=== PATIENT | male | born 1955 | race Caucasian/White ===

== ENCOUNTER 2016-04-09 05:22 | Inpatient (IN) | payer OTHER ==
[~2016-04-09] VITALS: Ht 190.5 cm; Wt 141.4 kg
[~2016-04-09 05:22] MED LIST: CARV25 PO; DABI75CA3 PO; DIGO125T PO; DILT30TA38 PO; DULO60CA44 PO; LOSA50TA37 PO; NITR0.4T SL; OXYC-522 PO; PANT40TA25 PO; SLOWK8 PO; SPIR25TA4 PO; TAMS0.4C32 PO; TOPI100 PO
[2016-04-09] MEDS ORDERED: MORP60TA49 PO (05:28)
[2016-04-09] MEDS ORDERED: DILTIAZEM HCL 5 MG/ML 5 ML VIAL IVP ONE (06:00)
[2016-04-09 06:15] LABS: BASOPHILS # (AUTO) 0.08 K/uL (0.00-0.20); BASOPHILS % (AUTO) 0.9 % (0.0-2.0); EOSINOPHILS # (AUTO) 0.11 K/uL (0.00-0.70); EOSINOPHILS % (AUTO) 1.29 % (1.0-6.0); HEMOGLOBIN 14.1 g/dL (13.5-17.5); LYMPHOCYTES # (AUTO) 1.6 K/uL (1.0-4.8); LYMPHOCYTES % (AUTO) 17.4 % (22.0-44.0); MEAN CORPUSCULAR HEMOGLOBIN 32.7 pg (26.0-34.0); MEAN CORPUSCULAR HGB CONC 33.7 G/dL (31.0-37.0); MEAN CORPUSCULAR VOLUME 97 fL (80-100); MONOCYTES # (AUTO) 0.7 K/uL (0.1-1.0); MONOCYTES % (AUTO) 7.8 % (2.0-9.0); NEUTROPHILS # (AUTO) 6.5 K/uL (1.8-7.7); NEUTROPHILS % (AUTO) 72.6 % (40.0-70.0); PLATELET COUNT (AUTO) 197 K/uL (150-450); RED BLOOD CELL COUNT(AUTO) 4.32 MIL/uL (4.50-5.90); RED CELL DISTRIBUTION WIDTH 13.8 % (11.5-14.5); WHITE BLOOD COUNT (AUTO) 8.9 K/uL (4.5-11.0)
[2016-04-09] MEDS ORDERED: SODIUM CHLORIDE 0.9% 1,000 ML IV ONE (06:15)
[2016-04-09] MEDS ORDERED: ONDANSETRON HCL 4 MG/2 ML VIAL IVP ONE (06:15)
[2016-04-09] MEDS ORDERED: DIGOXIN 250 MCG/ML 2 ML AMP IVP ONE (06:15)
[2016-04-09] MEDS ORDERED: KETOROLAC TROMETHAMINE 30 MG/ML VIAL IVP ONE (06:15)
[2016-04-09 06:25] LABS: ANION GAP 10 mmol/L (8-16); CALCIUM, TOTAL 8.6 mg/dL (8.8-10.5); CARBON DIOXIDE 26 mmol/L (22-29); CHLORIDE 104 mmol/L (98-107); CREATININE 1.03 mg/dL (0.60-1.30); GLOMERULAR FILTR. RATE CALC > 60 mL/min (>60); POTASSIUM 3.8 mmol/L (3.5-5.1); SODIUM SERUM 140 mmol/L (136-145); UREA NITROGEN, BLOOD 25 mg/dL (7-18)
[2016-04-09 06:39] LABS: APPEARANCE,URINE TURBID (CLEAR); GLUCOSE, URINE (UA) 100 mg/dL (NEGATIVE); KETONES,URINE 15 mg/dL (NEGATIVE); LEUKOCYTE ESTERASE ,URINE SMALL (NEGATIVE); OCCULT BLOOD,URINE SMALL (NEGATIVE); PROTEIN,URINE SEE CONFIRM (NEGATIVE)
[2016-04-09 06:40] LABS: ADD UA MICROSCOPIC YES
[2016-04-09 06:41] LABS: B-TYPE NATRIURETIC PEPTIDE 889 pg/mL (0-100)
[2016-04-09 06:41] LABS: SULFOSALICYLIC ACID,URINE 1+ (Negative)
[2016-04-09 06:44] LABS: SQUAMOUS EPITHELIAL CELL,UR Moderate /LPF (None Seen)
[2016-04-09 06:45] LABS: COARSE GRANULAR CASTS,URINE 0-2 /LPF (None Seen)
[2016-04-09 06:49] LABS: ALANINE AMINOTRANSFERASE 29 U/L (12-78); ALBUMIN 3.2 g/dL (3.4-5.0); ASPARTATE AMINOTRANSFERASE 20 U/L (15-37); BILIRUBIN,TOTAL 0.9 mg/dL (0.1-1.0); CREATINE KINASE, TOTAL 124 U/L (39-308); THYROID STIMULATING HORMONE 1.46 uIU/mL (0.36-3.74); TOTAL PROTEIN, SERUM 6.5 g/dL (6.4-8.2)
[2016-04-09] MEDS ORDERED: ONDANSETRON HCL 4 MG/2 ML VIAL IVP PRN ×2 (07:30→12:30)
[2016-04-09] MEDS ORDERED: ACETAMINOPHEN 325 MG TABLET PO PRN ×2 (07:30→12:30)
[2016-04-09 11:37] LABS: GLUCOSE,POINT OF CARE 118 MG/DL (70-110)
[2016-04-09] MEDS ORDERED: MAGNESIUM HYDROXIDE SUSPENSION 30 ML UDCUP PO PRN (12:30)
[2016-04-09] MEDS ORDERED: ZOLPIDEM TARTRATE 5 MG TABLET PO PRN (12:30)
[2016-04-09] MEDS ORDERED: BISACODYL 10 MG RECTAL RECTAL SUPPOSITORY PR PRN (12:30)
[2016-04-09] MEDS ORDERED: IPRATROPIUM BROMIDE 0.5 MG/2.5 ML NEB SOLUTION NEB PRN (12:30)
[2016-04-09] MEDS: HEPARIN SODIUM,PORCINE 5,000 UNITS/ML VIAL SQ SCH ×2 (15:09→23:31)
[2016-04-09] MEDS: DILTIAZEM HCL 30 MG TABLET PO SCH ×2 (16:22→20:33)
[2016-04-09] MEDS: MORPHINE SULFATE 2 MG/ML SYRINGE IVP PRN ×2 (16:24→20:34)
[2016-04-09 17:49] VITALS: BP 151/92
[2016-04-09] MEDS: HYDROCODONE/ACETAMINOPHEN 5-325 MG TABLET PO PRN ×2 (18:04→23:31)
[2016-04-09 19:53] VITALS: BP 139/88
[2016-04-09] MEDS: TAMSULOSIN HCL 0.4 MG CAPSULE PO SCH (20:34)
[2016-04-09] MEDS: DABIGATRAN ETEXILATE MESYLATE 75 MG CAPSULE PO SCH (20:34)
[2016-04-09] MEDS: CARVEDILOL 25 MG TABLET PO SCH (20:34)
[2016-04-09] MEDS: DOCUSATE SODIUM 100 MG CAPSULE PO SCH (20:40)
[2016-04-09 23:32] VITALS: BP 116/77
[2016-04-10] VITALS (7 sets, daily range): BP systolic 103–157; BP diastolic 62–89
[2016-04-10] MEDS: MORPHINE SULFATE 2 MG/ML SYRINGE IVP PRN ×6 (00:47→22:35)
[2016-04-10 06:37] LABS: BASOPHILS % (AUTO) 0.6 % (0.0-2.0); EOSINOPHILS % (AUTO) 4.5 % (1.0-6.0); HEMATOCRIT 40.1 % (41-53); LYMPHOCYTES # (AUTO) 1.8 K/uL (1.0-4.8); LYMPHOCYTES % (AUTO) 28.6 % (22.0-44.0); MEAN CORPUSCULAR HEMOGLOBIN 32.3 pg (26.0-34.0); MEAN CORPUSCULAR HGB CONC 32.3 G/dL (31.0-37.0); MEAN CORPUSCULAR VOLUME 100 fL (80-100); MONOCYTES # (AUTO) 0.5 K/uL (0.1-1.0); MONOCYTES % (AUTO) 7.5 % (2.0-9.0); NEUTROPHILS # (AUTO) 3.7 K/uL (1.8-7.7); NEUTROPHILS % (AUTO) 58.8 % (40.0-70.0); PLATELET COUNT (AUTO) 156 K/uL (150-450); RED BLOOD CELL COUNT(AUTO) 4.01 MIL/uL (4.50-5.90); RED CELL DISTRIBUTION WIDTH 13.4 % (11.5-14.5); WHITE BLOOD COUNT (AUTO) 6.4 K/uL (4.5-11.0)
[2016-04-10 07:03] LABS: ALANINE AMINOTRANSFERASE 27 U/L (12-78); ALBUMIN 2.9 g/dL (3.4-5.0); ANION GAP 8 mmol/L (8-16); ASPARTATE AMINOTRANSFERASE 24 U/L (15-37); BILIRUBIN,TOTAL 0.5 mg/dL (0.1-1.0); CALCIUM, TOTAL 8.2 mg/dL (8.8-10.5); CARBON DIOXIDE 26 mmol/L (22-29); CHLORIDE 102 mmol/L (98-107); CREATININE 1.01 mg/dL (0.60-1.30); GLOMERULAR FILTR. RATE CALC > 60 mL/min (>60); POTASSIUM 3.8 mmol/L (3.5-5.1); SODIUM SERUM 136 mmol/L (136-145); TOTAL PROTEIN, SERUM 6.1 g/dL (6.4-8.2); UREA NITROGEN, BLOOD 31 mg/dL (7-18)
[2016-04-10] MEDS: DIGOXIN 125 MCG TABLET PO SCH (08:29)
[2016-04-10] MEDS: PANTOPRAZOLE SODIUM 40 MG DR TABLET PO SCH (08:29)
[2016-04-10] MEDS: LOSARTAN POTASSIUM 50 MG TABLET PO SCH (08:29)
[2016-04-10] MEDS: HYDROCODONE/ACETAMINOPHEN 5-325 MG TABLET PO PRN ×3 (08:29→20:31)
[2016-04-10] MEDS: SPIRONOLACTONE 25 MG TABLET PO SCH (08:29)
[2016-04-10] MEDS: CARVEDILOL 25 MG TABLET PO SCH ×2 (08:30→20:28)
[2016-04-10] MEDS: DOCUSATE SODIUM 100 MG CAPSULE PO SCH ×2 (08:30→20:28)
[2016-04-10] MEDS: HEPARIN SODIUM,PORCINE 5,000 UNITS/ML VIAL SQ SCH ×3 (08:30→22:35)
[2016-04-10] MEDS: TOPIRAMATE 100 MG TABLET PO SCH (08:31)
[2016-04-10] MEDS: DULoxetine HCL 60 MG CAPSULE PO SCH (08:31)
[2016-04-10] MEDS: DABIGATRAN ETEXILATE MESYLATE 75 MG CAPSULE PO SCH ×2 (08:31→20:27)
[2016-04-10] MEDS: DILTIAZEM HCL 30 MG TABLET PO SCH ×3 (08:31→22:35)
[2016-04-10] MEDS ORDERED: MORP15T PO (14:37)
[2016-04-10] MEDS: FUROSEMIDE 20 MG/2 ML VIAL IVP SCH (15:11)
[2016-04-10] MEDS: TAMSULOSIN HCL 0.4 MG CAPSULE PO SCH (20:27)
[2016-04-11] MEDS: MORPHINE SULFATE 2 MG/ML SYRINGE IVP PRN ×4 (02:36→16:25)
[2016-04-11 04:43] VITALS: BP 153/87
[2016-04-11 08:11] VITALS: BP 130/106
[2016-04-11] MEDS: LOSARTAN POTASSIUM 50 MG TABLET PO SCH (08:56)
[2016-04-11] MEDS: PANTOPRAZOLE SODIUM 40 MG DR TABLET PO SCH (08:57)
[2016-04-11] MEDS: DIGOXIN 125 MCG TABLET PO SCH (08:57)
[2016-04-11] MEDS: HYDROCODONE/ACETAMINOPHEN 5-325 MG TABLET PO PRN (08:57)
[2016-04-11] MEDS: SPIRONOLACTONE 25 MG TABLET PO SCH (08:57)
[2016-04-11] MEDS: FUROSEMIDE 20 MG/2 ML VIAL IVP SCH (08:57)
[2016-04-11] MEDS: DILTIAZEM HCL 30 MG TABLET PO SCH ×2 (08:58→16:25)
[2016-04-11] MEDS: DABIGATRAN ETEXILATE MESYLATE 75 MG CAPSULE PO SCH (08:58)
[2016-04-11] MEDS: HEPARIN SODIUM,PORCINE 5,000 UNITS/ML VIAL SQ SCH ×2 (08:58→16:26)
[2016-04-11] MEDS: CARVEDILOL 25 MG TABLET PO SCH (08:58)
[2016-04-11] MEDS: DULoxetine HCL 60 MG CAPSULE PO SCH (08:58)
[2016-04-11] MEDS: TOPIRAMATE 100 MG TABLET PO SCH (08:58)
[2016-04-11] MEDS: DOCUSATE SODIUM 100 MG CAPSULE PO SCH (08:59)
[2016-04-11 12:00] VITALS: BP 153/90
[2016-04-11] MEDS ORDERED: FURO20 PO (16:16)
[2016-04-11] MEDS ORDERED: CARV25 PO (16:16)
[2016-04-11 16:17] VITALS: BP 144/87
== END 2016-04-11 18:45 | disposition home or self-care (01) | DRG 201 ==
LOC: EMS 05:24 → 5S 15:23
PROVIDERS: ADMIT Internal Medicine; ATTEND Internal Medicine
DX: I48.91 Unspecified atrial fibrillation (principal); I50.23 Acute on chronic systolic (congestive) heart failure; J44.9 Chronic obstructive pulmonary disease, unspecified; I42.8 Other cardiomyopathies; E78.00 Pure hypercholesterolemia, unspecified; G43.909 Migraine, unspecified, not intractable, without status migrainosus; E78.5 Hyperlipidemia, unspecified; F31.9 Bipolar disorder, unspecified; I13.0 Hypertensive heart and chronic kidney disease with heart failure and stage 1 through stage 4 chronic kidney disease, or unspecified chronic kidney disease; F10.20 Alcohol dependence, uncomplicated; F12.90 Cannabis use, unspecified, uncomplicated; G89.29 Other chronic pain; F90.9 Attention-deficit hyperactivity disorder, unspecified type; I44.7 Left bundle-branch block, unspecified; N18.9 Chronic kidney disease, unspecified; Z79.899 Other long term (current) drug therapy; Z86.711 Personal history of pulmonary embolism; Z79.1 Long term (current) use of non-steroidal anti-inflammatories (NSAID); Z79.891 Long term (current) use of opiate analgesic; Z98.890 Other specified postprocedural states; Z95.0 Presence of cardiac pacemaker; Z91.14 Patient's other noncompliance with medication regimen
CPT/HCPCS: 82962; 83735; 84443; 87086; 93005; 93306; 96361; 96374; 96375; 99291; J1160; J1644; J1885; J1940; J2270; J2405; J3490; J7030

== ENCOUNTER 2016-05-09 17:39 | Emergency (ER) | payer OTHER ==
[~2016-05-09] VITALS: Ht 190.5 cm; Wt 131.8 kg
[~2016-05-09 17:39] MED LIST changes: +FURO20 PO; +MORP15T PO
[2016-05-09 19:04] VITALS: BP 143/95
[2016-05-09] MEDS ORDERED: ONDANSETRON HCL 4 MG/2 ML VIAL IM ONE (20:15)
[2016-05-09] MEDS ORDERED: HYDROmorphone 2 MG/ML SYRINGE IM ONE (20:15)
== END 2016-05-09 20:57 | disposition home or self-care (01) ==
LOC: EMS 17:44
DX: M16.11 Unilateral primary osteoarthritis, right hip (principal); G89.29 Other chronic pain; I11.0 Hypertensive heart disease with heart failure; I50.9 Heart failure, unspecified; J44.9 Chronic obstructive pulmonary disease, unspecified; I48.91 Unspecified atrial fibrillation; E78.00 Pure hypercholesterolemia, unspecified; F12.90 Cannabis use, unspecified, uncomplicated
CPT/HCPCS: 96372; 99284; J1170; J2405

== ENCOUNTER 2016-05-17 14:56 | Emergency (ER) | payer OTHER ==
[~2016-05-17] VITALS: Ht 190.5 cm; Wt 131.5 kg
[2016-05-17] MEDS ORDERED: ALBUTEROL SULFATE 2.5 MG/0.5 ML NEB SOLUTION NEB ONE ×2 (20:45→22:00)
[2016-05-17] MEDS ORDERED: IPRATROPIUM BROMIDE 0.5 MG/2.5 ML NEB SOLUTION NEB ONE ×2 (20:45→22:00)
[2016-05-17 21:01] LABS: BASOPHILS % (AUTO) 0.7 % (0.0-2.0); EOSINOPHILS % (AUTO) 2.7 % (1.0-6.0); HEMATOCRIT 40.8 % (41-53); HEMOGLOBIN 13.4 g/dL (13.5-17.5); LYMPHOCYTES # (AUTO) 1.9 K/uL (1.0-4.8); LYMPHOCYTES % (AUTO) 26.3 % (22.0-44.0); MEAN CORPUSCULAR HGB CONC 32.9 G/dL (31.0-37.0); MEAN CORPUSCULAR VOLUME 97 fL (80-100); MONOCYTES # (AUTO) 0.7 K/uL (0.1-1.0); MONOCYTES % (AUTO) 10.5 % (2.0-9.0); NEUTROPHILS # (AUTO) 4.2 K/uL (1.8-7.7); NEUTROPHILS % (AUTO) 59.8 % (40.0-70.0); PLATELET COUNT (AUTO) 217 K/uL (150-450); RED BLOOD CELL COUNT(AUTO) 4.18 MIL/uL (4.50-5.90); RED CELL DISTRIBUTION WIDTH 13.8 % (11.5-14.5); WHITE BLOOD COUNT (AUTO) 7.1 K/uL (4.5-11.0)
[2016-05-17 21:11] LABS: ANION GAP 5 mmol/L (8-16); CARBON DIOXIDE 30 mmol/L (22-29); CHLORIDE 102 mmol/L (98-107); CREATININE 1.05 mg/dL (0.60-1.30); GLOMERULAR FILTR. RATE CALC > 60 mL/min (>60); POTASSIUM 4.7 mmol/L (3.5-5.1); SODIUM SERUM 137 mmol/L (136-145); UREA NITROGEN, BLOOD 20 mg/dL (7-18)
[2016-05-17 21:17] LABS: ALANINE AMINOTRANSFERASE 25 U/L (12-78); ALBUMIN 3.3 g/dL (3.4-5.0); ASPARTATE AMINOTRANSFERASE 15 U/L (15-37); BILIRUBIN,TOTAL 0.6 mg/dL (0.1-1.0); CREATINE KINASE, TOTAL 45 U/L (39-308); TOTAL PROTEIN, SERUM 7.1 g/dL (6.4-8.2)
[2016-05-17 21:28] LABS: B-TYPE NATRIURETIC PEPTIDE 489 pg/mL (0-100)
[2016-05-17] MEDS ORDERED: PredniSONE 20 MG TABLET PO ONE (22:00)
[2016-05-17] MEDS ORDERED: FUROSEMIDE 20 MG TABLET PO ONE (22:00)
[2016-05-17] MEDS ORDERED: PredniSONE 20 MG TABLET ONE (22:03)
[2016-05-17] MEDS ORDERED: FUROSEMIDE 20 MG TABLET ONE (22:04)
[2016-05-17 22:39] VITALS: BP 133/78
== END 2016-05-17 23:04 | disposition home or self-care (01) ==
LOC: EMS 14:58
DX: J44.0 Chronic obstructive pulmonary disease with (acute) lower respiratory infection (principal); I11.0 Hypertensive heart disease with heart failure; I50.9 Heart failure, unspecified; E78.00 Pure hypercholesterolemia, unspecified; G43.909 Migraine, unspecified, not intractable, without status migrainosus; F12.90 Cannabis use, unspecified, uncomplicated; Z95.0 Presence of cardiac pacemaker
CPT/HCPCS: 36415; 71020; 80053; 82550; 83880; 84484; 85025; 93005; 94640; 99285; J7512; J7613

== ENCOUNTER 2016-05-20 10:40 | Inpatient (IN) | payer OTHER ==
[~2016-05-20] VITALS: Ht 188 cm; Wt 139.2 kg
[2016-05-20] MEDS ORDERED: IPRATROPIUM BROMIDE 0.5 MG/2.5 ML NEB SOLUTION NEB ONE ×2 (11:00→13:00)
[2016-05-20] MEDS ORDERED: PredniSONE 20 MG TABLET PO ONE (11:00)
[2016-05-20] MEDS ORDERED: ALBUTEROL SULFATE 5 MG/ML 20 ML NEB SOLN [BULK] NEB ONE ×2 (11:00→13:00)
[2016-05-20 15:28] LABS: BASOPHILS # (AUTO) 0.01 K/uL (0.00-0.20); BASOPHILS % (AUTO) 0.2 % (0.0-2.0); EOSINOPHILS # (AUTO) 0.03 K/uL (0.00-0.70); EOSINOPHILS % (AUTO) 0.46 % (1.0-6.0); HEMATOCRIT 43.4 % (41-53); HEMOGLOBIN 14.4 g/dL (13.5-17.5); LYMPHOCYTES # (AUTO) 0.7 K/uL (1.0-4.8); LYMPHOCYTES % (AUTO) 9.2 % (22.0-44.0); MEAN CORPUSCULAR HGB CONC 33.1 G/dL (31.0-37.0); MEAN CORPUSCULAR VOLUME 97 fL (80-100); MONOCYTES # (AUTO) 0.1 K/uL (0.1-1.0); MONOCYTES % (AUTO) 1.5 % (2.0-9.0); NEUTROPHILS # (AUTO) 6.4 K/uL (1.8-7.7); PLATELET COUNT (AUTO) 283 K/uL (150-450); RED BLOOD CELL COUNT(AUTO) 4.48 MIL/uL (4.50-5.90); RED CELL DISTRIBUTION WIDTH 13.5 % (11.5-14.5); WHITE BLOOD COUNT (AUTO) 7.3 K/uL (4.5-11.0)
[2016-05-20 15:29] LABS: NEUTROPHILS % (AUTO) 88.7 % (40.0-70.0)
[2016-05-20 15:37] LABS: ANION GAP 7 mmol/L (8-16); CALCIUM, TOTAL 9.3 mg/dL (8.8-10.5); CARBON DIOXIDE 32 mmol/L (22-29); CHLORIDE 103 mmol/L (98-107); CREATININE 0.93 mg/dL (0.60-1.30); GLOMERULAR FILTR. RATE CALC > 60 mL/min (>60); POTASSIUM 5.1 mmol/L (3.5-5.1); SODIUM SERUM 142 mmol/L (136-145); UREA NITROGEN, BLOOD 19 mg/dL (7-18)
[2016-05-20 15:43] LABS: ALANINE AMINOTRANSFERASE 21 U/L (12-78); ALBUMIN 3.5 g/dL (3.4-5.0); ASPARTATE AMINOTRANSFERASE 15 U/L (15-37); BILIRUBIN,TOTAL 0.7 mg/dL (0.1-1.0); TOTAL PROTEIN, SERUM 7.3 g/dL (6.4-8.2)
[2016-05-20] MEDS ORDERED: ONDANSETRON HCL 4 MG/2 ML VIAL IVP PRN (16:15)
[2016-05-20] MEDS ORDERED: ACETAMINOPHEN 325 MG TABLET PO PRN (16:15)
[2016-05-20 16:46] VITALS: BP 108/98
[2016-05-20] MEDS ORDERED: NITROGLYCERIN 0.4 MG SUBLINGUAL TABLET #25 SL PRN (17:45)
[2016-05-20] MEDS: MORPHINE SULFATE 15 MG IR TABLET PO PRN (18:25)
[2016-05-20] MEDS: DIGOXIN 125 MCG TABLET PO SCH (18:25)
[2016-05-20] MEDS: ALBUTEROL SULFATE 2.5 MG/0.5 ML NEB SOLUTION NEB SCH ×2 (18:59→23:09)
[2016-05-20] MEDS: IPRATROPIUM BROMIDE 0.5 MG/2.5 ML NEB SOLUTION NEB SCH ×2 (18:59→23:09)
[2016-05-20 20:05] VITALS: BP 129/84
[2016-05-20] MEDS: CARVEDILOL 25 MG TABLET PO SCH (20:55)
[2016-05-20] MEDS: TAMSULOSIN HCL 0.4 MG CAPSULE PO SCH (20:55)
[2016-05-20] MEDS: DABIGATRAN ETEXILATE MESYLATE 75 MG CAPSULE PO SCH (20:55)
[2016-05-20] MEDS: DILTIAZEM HCL 30 MG TABLET PO SCH (20:55)
[2016-05-20] MEDS: OxyCODONE HCL/ACETAMINOPHEN 10-325 MG TABLET PO PRN (22:30)
[2016-05-20] MEDS: MethylPREDNISolone SOD SUCC 125 MG/2 ML VIAL IVP SCH (23:18)
[2016-05-20 23:58] VITALS: BP 125/86
[2016-05-21] MEDS ORDERED: MethylPREDNISolone SOD SUCC 125 MG/2 ML VIAL IVP ONE
[2016-05-21] MEDS: MORPHINE SULFATE 15 MG IR TABLET PO PRN ×3 (02:38→20:16)
[2016-05-21] MEDS: IPRATROPIUM BROMIDE 0.5 MG/2.5 ML NEB SOLUTION NEB SCH (02:54)
[2016-05-21] MEDS: ALBUTEROL SULFATE 2.5 MG/0.5 ML NEB SOLUTION NEB SCH (02:54)
[2016-05-21 05:09] VITALS: BP 154/89
[2016-05-21 07:22] VITALS: BP 146/86
[2016-05-21] MEDS: MethylPREDNISolone SOD SUCC 125 MG/2 ML VIAL IVP SCH ×3 (07:37→23:41)
[2016-05-21] MEDS: OxyCODONE HCL/ACETAMINOPHEN 10-325 MG TABLET PO PRN ×2 (07:37→23:41)
[2016-05-21] MEDS: DIGOXIN 125 MCG TABLET PO SCH (08:57)
[2016-05-21] MEDS: DABIGATRAN ETEXILATE MESYLATE 75 MG CAPSULE PO SCH ×2 (08:57→20:17)
[2016-05-21] MEDS: POTASSIUM CHLORIDE 8 MEQ ER TABLET PO SCH (08:57)
[2016-05-21] MEDS: PANTOPRAZOLE SODIUM 40 MG DR TABLET PO SCH (08:57)
[2016-05-21] MEDS: LOSARTAN POTASSIUM 50 MG TABLET PO SCH (08:57)
[2016-05-21] MEDS: CARVEDILOL 25 MG TABLET PO SCH ×2 (08:57→20:16)
[2016-05-21] MEDS: SPIRONOLACTONE 25 MG TABLET PO SCH (08:57)
[2016-05-21] MEDS: FUROSEMIDE 20 MG TABLET PO SCH (08:57)
[2016-05-21] MEDS: DILTIAZEM HCL 30 MG TABLET PO SCH ×3 (08:57→20:16)
[2016-05-21] MEDS: DULoxetine HCL 60 MG CAPSULE PO SCH (08:58)
[2016-05-21] MEDS: TOPIRAMATE 100 MG TABLET PO SCH (08:58)
[2016-05-21 09:20] LABS: EOSINOPHILS # (AUTO) 0.01 K/uL (0.00-0.70); EOSINOPHILS % (AUTO) 0.06 % (1.0-6.0); HEMATOCRIT 43.6 % (41-53); HEMOGLOBIN 14.6 g/dL (13.5-17.5); LYMPHOCYTES # (AUTO) 0.8 K/uL (1.0-4.8); LYMPHOCYTES % (AUTO) 6.3 % (22.0-44.0); MEAN CORPUSCULAR HEMOGLOBIN 32.3 pg (26.0-34.0); MEAN CORPUSCULAR HGB CONC 33.5 G/dL (31.0-37.0); MEAN CORPUSCULAR VOLUME 96 fL (80-100); MONOCYTES # (AUTO) 0.1 K/uL (0.1-1.0); MONOCYTES % (AUTO) 0.4 % (2.0-9.0); NEUTROPHILS # (AUTO) 11.6 K/uL (1.8-7.7); PLATELET COUNT (AUTO) 304 K/uL (150-450); RED BLOOD CELL COUNT(AUTO) 4.53 MIL/uL (4.50-5.90); RED CELL DISTRIBUTION WIDTH 14.2 % (11.5-14.5)
[2016-05-21 09:21] LABS: NEUTROPHILS % (AUTO) 93.2 % (40.0-70.0)
[2016-05-21 09:22] LABS: WHITE BLOOD COUNT (AUTO) 15.3 K/uL (4.5-11.0)
[2016-05-21 09:33] LABS: ALANINE AMINOTRANSFERASE 21 U/L (12-78); ALBUMIN 3.2 g/dL (3.4-5.0); ANION GAP 10 mmol/L (8-16); ASPARTATE AMINOTRANSFERASE 25 U/L (15-37); BILIRUBIN,TOTAL 0.6 mg/dL (0.1-1.0); CALCIUM, TOTAL 8.7 mg/dL (8.8-10.5); CARBON DIOXIDE 27 mmol/L (22-29); CHLORIDE 102 mmol/L (98-107); CREATININE 1.07 mg/dL (0.60-1.30); GLOMERULAR FILTR. RATE CALC > 60 mL/min (>60); POTASSIUM 4.9 mmol/L (3.5-5.1); SODIUM SERUM 139 mmol/L (136-145); UREA NITROGEN, BLOOD 19 mg/dL (7-18)
[2016-05-21 10:51] VITALS: BP 108/67
[2016-05-21 15:19] VITALS: BP 130/72
[2016-05-21] MEDS ORDERED: IOVERSOL 350 MG/ML 150 ML VIAL ONE (15:50)
[2016-05-21] MEDS ORDERED: SODIUM CHLORIDE 0.9% 100 ML ONE (15:50)
[2016-05-21] MEDS: LEVOFLOXACIN 500 MG TABLET PO SCH (15:54)
[2016-05-21] MEDS ORDERED: 0.9% SODIUM CHLORIDE 5 ML NEB SOLUTION NEB ONE ×2 (16:33→21:54)
[2016-05-21] MEDS: ALBUTEROL SULFATE 2.5 MG/0.5 ML NEB SOLUTION NEB PRN (16:40)
[2016-05-21 19:17] VITALS: BP 131/90
[2016-05-21] MEDS: TAMSULOSIN HCL 0.4 MG CAPSULE PO SCH (20:16)
[2016-05-21] MEDS: GuaiFENesin/CODEINE [SUGAR FREE] 200-20MG/10 ML SYRUP UDCUP PO PRN (20:22)
[2016-05-21 23:41] VITALS: BP 132/73
[2016-05-22] MEDS: GuaiFENesin/CODEINE [SUGAR FREE] 200-20MG/10 ML SYRUP UDCUP PO PRN ×4 (02:32→23:56)
[2016-05-22 05:05] VITALS: BP 136/72
[2016-05-22 07:55] VITALS: BP 131/76
[2016-05-22] MEDS: LOSARTAN POTASSIUM 50 MG TABLET PO SCH (08:19)
[2016-05-22] MEDS: FUROSEMIDE 20 MG TABLET PO SCH (08:19)
[2016-05-22] MEDS: MethylPREDNISolone SOD SUCC 125 MG/2 ML VIAL IVP SCH ×3 (08:20→23:56)
[2016-05-22] MEDS: MORPHINE SULFATE 15 MG IR TABLET PO PRN ×3 (08:20→20:50)
[2016-05-22] MEDS: DABIGATRAN ETEXILATE MESYLATE 75 MG CAPSULE PO SCH ×2 (08:20→20:49)
[2016-05-22] MEDS: DILTIAZEM HCL 30 MG TABLET PO SCH ×3 (08:20→20:49)
[2016-05-22] MEDS: PANTOPRAZOLE SODIUM 40 MG DR TABLET PO SCH (08:20)
[2016-05-22] MEDS: DIGOXIN 125 MCG TABLET PO SCH (08:20)
[2016-05-22] MEDS: LEVOFLOXACIN 500 MG TABLET PO SCH (08:20)
[2016-05-22] MEDS: SPIRONOLACTONE 25 MG TABLET PO SCH (08:20)
[2016-05-22] MEDS: CARVEDILOL 25 MG TABLET PO SCH ×2 (08:21→20:49)
[2016-05-22] MEDS: POTASSIUM CHLORIDE 8 MEQ ER TABLET PO SCH (08:21)
[2016-05-22] MEDS: TOPIRAMATE 100 MG TABLET PO SCH (08:21)
[2016-05-22] MEDS: DULoxetine HCL 60 MG CAPSULE PO SCH (08:21)
[2016-05-22] MEDS ORDERED: 0.9% SODIUM CHLORIDE 5 ML NEB SOLUTION NEB ONE ×2 (08:24→15:12)
[2016-05-22] MEDS: ALBUTEROL SULFATE 2.5 MG/0.5 ML NEB SOLUTION NEB PRN ×2 (08:25→15:14)
[2016-05-22 12:01] VITALS: BP 115/72
[2016-05-22 15:43] VITALS: BP 150/90
[2016-05-22 19:36] VITALS: BP 137/84
[2016-05-22] MEDS: TAMSULOSIN HCL 0.4 MG CAPSULE PO SCH (20:50)
[2016-05-22 23:29] VITALS: BP 137/90
[2016-05-22] MEDS: OxyCODONE HCL/ACETAMINOPHEN 10-325 MG TABLET PO PRN (23:56)
[2016-05-23 04:34] VITALS: BP 132/81
[2016-05-23] MEDS: MORPHINE SULFATE 15 MG IR TABLET PO PRN ×4 (05:05→22:48)
[2016-05-23] MEDS: GuaiFENesin/CODEINE [SUGAR FREE] 200-20MG/10 ML SYRUP UDCUP PO PRN ×3 (06:11→21:50)
[2016-05-23 07:04] VITALS: BP 135/94
[2016-05-23] MEDS: MethylPREDNISolone SOD SUCC 125 MG/2 ML VIAL IVP SCH ×2 (08:24→16:22)
[2016-05-23] MEDS: DIGOXIN 125 MCG TABLET PO SCH (08:24)
[2016-05-23] MEDS: DULoxetine HCL 60 MG CAPSULE PO SCH (08:25)
[2016-05-23] MEDS: SPIRONOLACTONE 25 MG TABLET PO SCH (08:25)
[2016-05-23] MEDS: LOSARTAN POTASSIUM 50 MG TABLET PO SCH (08:25)
[2016-05-23] MEDS: CARVEDILOL 25 MG TABLET PO SCH ×2 (08:25→20:39)
[2016-05-23] MEDS: LEVOFLOXACIN 500 MG TABLET PO SCH (08:25)
[2016-05-23] MEDS: DILTIAZEM HCL 30 MG TABLET PO SCH ×3 (08:25→21:50)
[2016-05-23] MEDS: DABIGATRAN ETEXILATE MESYLATE 75 MG CAPSULE PO SCH ×2 (08:25→20:39)
[2016-05-23] MEDS: TOPIRAMATE 100 MG TABLET PO SCH (08:26)
[2016-05-23] MEDS: POTASSIUM CHLORIDE 8 MEQ ER TABLET PO SCH (08:26)
[2016-05-23] MEDS: PANTOPRAZOLE SODIUM 40 MG DR TABLET PO SCH (08:34)
[2016-05-23] MEDS: OxyCODONE HCL/ACETAMINOPHEN 10-325 MG TABLET PO PRN ×2 (08:34→19:50)
[2016-05-23] MEDS: FUROSEMIDE 20 MG TABLET PO SCH (08:34)
[2016-05-23 11:34] VITALS: BP 140/91
[2016-05-23 12:26] VITALS: BP 137/75
[2016-05-23 15:46] VITALS: BP 144/83
[2016-05-23] MEDS: ALBUTEROL SULFATE 2.5 MG/0.5 ML NEB SOLUTION NEB PRN (17:48)
[2016-05-23] MEDS: ALBUTEROL SULFATE 2.5 MG/0.5 ML NEB SOLUTION NEB SCH ×2 (19:00→23:24)
[2016-05-23] MEDS: IPRATROPIUM BROMIDE 0.5 MG/2.5 ML NEB SOLUTION NEB SCH ×2 (19:00→23:24)
[2016-05-23] MEDS: HYDROCODONE/CHLORPHEN POLIS 10-8 MG/5 ML ORAL.SYG PO SCH (20:39)
[2016-05-23] MEDS: FLUTICASONE PROPIONATE 50 MCG/SPRAY 16 GM NASAL SPRAY NASAL SCH (20:39)
[2016-05-23] MEDS: BENZONATATE 100 MG CAPSULE PO SCH (20:39)
[2016-05-23] MEDS: TAMSULOSIN HCL 0.4 MG CAPSULE PO SCH (20:40)
[2016-05-23 21:15] VITALS: BP 149/95
[2016-05-23] MEDS: BUDESONIDE 0.5 MG/2 ML NEB SOLUTION NEB SCH (23:24)
[2016-05-24] VITALS (8 sets, daily range): BP systolic 135–153; BP diastolic 72–102
[2016-05-24] MEDS: OxyCODONE HCL/ACETAMINOPHEN 10-325 MG TABLET PO PRN ×4 (01:49→23:01)
[2016-05-24] MEDS: ALBUTEROL SULFATE 2.5 MG/0.5 ML NEB SOLUTION NEB SCH ×6 (03:07→23:39)
[2016-05-24] MEDS: IPRATROPIUM BROMIDE 0.5 MG/2.5 ML NEB SOLUTION NEB SCH ×6 (03:07→23:41)
[2016-05-24] MEDS: MethylPREDNISolone SOD SUCC 125 MG/2 ML VIAL IVP SCH ×3 (03:31→15:51)
[2016-05-24 07:06] LABS: EOSINOPHILS % (AUTO) 0 % (1.0-6.0); HEMATOCRIT 42.2 % (41-53); HEMOGLOBIN 13.5 g/dL (13.5-17.5); LYMPHOCYTES # (AUTO) 0.6 K/uL (1.0-4.8); LYMPHOCYTES % (AUTO) 6.3 % (22.0-44.0); MEAN CORPUSCULAR HEMOGLOBIN 31.5 pg (26.0-34.0); MEAN CORPUSCULAR HGB CONC 32.1 G/dL (31.0-37.0); MEAN CORPUSCULAR VOLUME 98 fL (80-100); MONOCYTES # (AUTO) 0.2 K/uL (0.1-1.0); MONOCYTES % (AUTO) 2.4 % (2.0-9.0); NEUTROPHILS # (AUTO) 8.5 K/uL (1.8-7.7); PLATELET COUNT (AUTO) 264 K/uL (150-450); RED CELL DISTRIBUTION WIDTH 14.2 % (11.5-14.5); WHITE BLOOD COUNT (AUTO) 9.3 K/uL (4.5-11.0)
[2016-05-24] MEDS: BUDESONIDE 0.5 MG/2 ML NEB SOLUTION NEB SCH ×2 (07:13→19:15)
[2016-05-24 07:32] LABS: NEUTROPHILS % (AUTO) 91.3 % (40.0-70.0)
[2016-05-24 07:48] LABS: MAGNESIUM 2.1 mg/dL (1.80-2.40); PHOSPHORUS 4.3 mg/dL (2.5-4.9); THYROID STIMULATING HORMONE 0.13 uIU/mL (0.36-3.74)
[2016-05-24] MEDS: FLUTICASONE PROPIONATE 50 MCG/SPRAY 16 GM NASAL SPRAY NASAL SCH ×2 (09:15→19:42)
[2016-05-24] MEDS: PANTOPRAZOLE SODIUM 40 MG DR TABLET PO SCH (09:17)
[2016-05-24] MEDS: SPIRONOLACTONE 25 MG TABLET PO SCH (09:17)
[2016-05-24] MEDS: DABIGATRAN ETEXILATE MESYLATE 75 MG CAPSULE PO SCH ×2 (09:17→19:43)
[2016-05-24] MEDS: POTASSIUM CHLORIDE 8 MEQ ER TABLET PO SCH (09:17)
[2016-05-24] MEDS: LOSARTAN POTASSIUM 50 MG TABLET PO SCH (09:17)
[2016-05-24] MEDS: DULoxetine HCL 60 MG CAPSULE PO SCH (09:17)
[2016-05-24] MEDS: TOPIRAMATE 100 MG TABLET PO SCH (09:18)
[2016-05-24] MEDS: DILTIAZEM HCL 30 MG TABLET PO SCH ×3 (09:19→21:03)
[2016-05-24] MEDS: FUROSEMIDE 20 MG TABLET PO SCH (09:19)
[2016-05-24] MEDS: CARVEDILOL 25 MG TABLET PO SCH ×2 (09:19→21:05)
[2016-05-24] MEDS: LEVOFLOXACIN 500 MG TABLET PO SCH (09:20)
[2016-05-24] MEDS: BENZONATATE 100 MG CAPSULE PO SCH ×3 (09:20→19:43)
[2016-05-24 11:21] LABS: ABG A-A DIFF O2 20.6 mmHg (10-20.0); ABG BASE EXCESS -2.2 mmol/L (-2.0-3.0); ABG HCO3 22.8 mmol/L (22.0-26.0); ABG OXYHEMOGLOBIN 94.9 % (94.0-100.0); ABG PCO2 41 mmHg (35-45); ABG PH 7.372 (7.35-7.450); TEMPERATURE, FAHRENHEIT, BG 98.6 FAHREN (96.0-98.6)
[2016-05-24 11:24] LABS: ALLEN TEST, BLOOD GAS Positive
[2016-05-24] MEDS: DIGOXIN 125 MCG TABLET PO SCH (11:41)
[2016-05-24] MEDS: HYDROCODONE/CHLORPHEN POLIS 10-8 MG/5 ML ORAL.SYG PO SCH ×2 (11:42→21:05)
[2016-05-24] MEDS: MORPHINE SULFATE 15 MG IR TABLET PO PRN ×2 (12:46→19:43)
[2016-05-24] MEDS: TAMSULOSIN HCL 0.4 MG CAPSULE PO SCH (19:42)
[2016-05-25] MEDS: MethylPREDNISolone SOD SUCC 40 MG/ML VIAL IVP SCH ×2 (00:23→07:41)
[2016-05-25] MEDS: GuaiFENesin/CODEINE [SUGAR FREE] 200-20MG/10 ML SYRUP UDCUP PO PRN ×2 (00:26→09:48)
[2016-05-25] MEDS: IPRATROPIUM BROMIDE 0.5 MG/2.5 ML NEB SOLUTION NEB SCH ×2 (03:20→07:51)
[2016-05-25] MEDS: ALBUTEROL SULFATE 2.5 MG/0.5 ML NEB SOLUTION NEB SCH ×2 (03:20→07:52)
[2016-05-25 03:30] VITALS: BP 146/90
[2016-05-25] MEDS: MORPHINE SULFATE 15 MG IR TABLET PO PRN (03:33)
[2016-05-25] MEDS: FLUTICASONE PROPIONATE 50 MCG/SPRAY 16 GM NASAL SPRAY NASAL SCH (07:44)
[2016-05-25] MEDS: HYDROCODONE/CHLORPHEN POLIS 10-8 MG/5 ML ORAL.SYG PO SCH (07:45)
[2016-05-25] MEDS: PANTOPRAZOLE SODIUM 40 MG DR TABLET PO SCH (07:46)
[2016-05-25] MEDS: LOSARTAN POTASSIUM 50 MG TABLET PO SCH (07:46)
[2016-05-25] MEDS: LEVOFLOXACIN 500 MG TABLET PO SCH (07:46)
[2016-05-25] MEDS: BENZONATATE 100 MG CAPSULE PO SCH (07:46)
[2016-05-25] MEDS: FUROSEMIDE 20 MG TABLET PO SCH (07:46)
[2016-05-25] MEDS: DIGOXIN 125 MCG TABLET PO SCH (07:47)
[2016-05-25] MEDS: DILTIAZEM HCL 30 MG TABLET PO SCH (07:48)
[2016-05-25] MEDS: CARVEDILOL 25 MG TABLET PO SCH (07:48)
[2016-05-25] MEDS: SPIRONOLACTONE 25 MG TABLET PO SCH (07:49)
[2016-05-25] MEDS: TOPIRAMATE 100 MG TABLET PO SCH (07:49)
[2016-05-25] MEDS: POTASSIUM CHLORIDE 8 MEQ ER TABLET PO SCH (07:49)
[2016-05-25] MEDS: DABIGATRAN ETEXILATE MESYLATE 75 MG CAPSULE PO SCH (07:49)
[2016-05-25] MEDS: BUDESONIDE 0.5 MG/2 ML NEB SOLUTION NEB SCH (07:52)
[2016-05-25 08:10] VITALS: BP 148/91
[2016-05-25] MEDS ORDERED: PredniSONE 20 MG TABLET PO SCH (09:00)
[2016-05-25] MEDS ORDERED: PRED20 PO (10:12)
[2016-05-25] MEDS ORDERED: LEVO500 PO (10:12)
[2016-05-25] MEDS ORDERED: IPRA3AMP4 NEB (10:13)
[2016-05-25] MEDS: OxyCODONE HCL/ACETAMINOPHEN 10-325 MG TABLET PO PRN (10:27)
[2016-05-25] MEDS: DULoxetine HCL 60 MG CAPSULE PO SCH (10:37)
== END 2016-05-25 10:45 | disposition home or self-care (01) | DRG 133 ==
LOC: EMS 10:42 → 5S 16:05 → 4E 05-23 11:54
PROVIDERS: ADMIT Family Medicine; ATTEND Family Medicine
DX: J96.00 Acute respiratory failure, unspecified whether with hypoxia or hypercapnia (principal); J18.9 Pneumonia, unspecified organism; I11.0 Hypertensive heart disease with heart failure; J44.0 Chronic obstructive pulmonary disease with (acute) lower respiratory infection; I50.9 Heart failure, unspecified; I48.91 Unspecified atrial fibrillation; G43.909 Migraine, unspecified, not intractable, without status migrainosus; J44.1 Chronic obstructive pulmonary disease with (acute) exacerbation; E66.01 Morbid (severe) obesity due to excess calories; F31.9 Bipolar disorder, unspecified; Z68.32 Body mass index [BMI] 32.0-32.9, adult; E78.00 Pure hypercholesterolemia, unspecified; E78.5 Hyperlipidemia, unspecified; F12.90 Cannabis use, unspecified, uncomplicated; I25.10 Atherosclerotic heart disease of native coronary artery without angina pectoris; F90.9 Attention-deficit hyperactivity disorder, unspecified type; G47.33 Obstructive sleep apnea (adult) (pediatric); G89.4 Chronic pain syndrome; M19.90 Unspecified osteoarthritis, unspecified site; Z86.711 Personal history of pulmonary embolism; Z91.19 Patient's noncompliance with other medical treatment and regimen; Z95.810 Presence of automatic (implantable) cardiac defibrillator; Z98.890 Other specified postprocedural states
CPT/HCPCS: 71260; 82805; 83735; 84100; 84443; 87070; 87081; 87205; 93005; 94640; 94644; 94645; 99285; J2920; J2930; J7050

== ENCOUNTER 2016-10-12 11:51 | Emergency (ER) | payer OTHER ==
[~2016-10-12] VITALS: Ht 190.5 cm; Wt 136.4 kg
[~2016-10-12 11:51] MED LIST changes: +IPRA3AMP4 NEB; +LEVO500 PO; +PRED20 PO
[2016-10-12] MEDS ORDERED: OXYC20 PO (12:21)
[2016-10-12] MEDS ORDERED: DABI150 PO (12:21)
[2016-10-12] MEDS ORDERED: DULO60CA44 PO (12:21)
[2016-10-12] MEDS ORDERED: DSS100 PO (12:21)
[2016-10-12] MEDS ORDERED: CEFX1I IV (12:21)
[2016-10-12] MEDS ORDERED: HYDR12.516 PO (12:21)
[2016-10-12 13:15] LABS: BASOPHILS # (AUTO) 0.04 K/uL (0.00-0.20); BASOPHILS % (AUTO) 0.8 % (0.0-2.0); EOSINOPHILS # (AUTO) 0.17 K/uL (0.00-0.70); EOSINOPHILS % (AUTO) 2.89 % (1.0-6.0); HEMOGLOBIN 11.2 g/dL (13.5-17.5); LYMPHOCYTES # (AUTO) 1.7 K/uL (1.0-4.8); LYMPHOCYTES % (AUTO) 28.8 % (22.0-44.0); MEAN CORPUSCULAR HEMOGLOBIN 30.6 pg (26.0-34.0); MEAN CORPUSCULAR VOLUME 93 fL (80-100); MONOCYTES # (AUTO) 0.5 K/uL (0.1-1.0); NEUTROPHILS # (AUTO) 3.5 K/uL (1.8-7.7); NEUTROPHILS % (AUTO) 59.5 % (40.0-70.0); PLATELET COUNT (AUTO) 479 K/uL (150-450); RED BLOOD CELL COUNT(AUTO) 3.67 MIL/uL (4.50-5.90); RED CELL DISTRIBUTION WIDTH 14.1 % (11.5-14.5); WHITE BLOOD COUNT (AUTO) 5.8 K/uL (4.5-11.0)
[2016-10-12 13:34] LABS: ALBUMIN 3.1 g/dL (3.4-5.0); BILIRUBIN,TOTAL 0.5 mg/dL (0.1-1.0); CALCIUM, TOTAL 8.7 mg/dL (8.8-10.5); CREATININE 1.29 mg/dL (0.60-1.30); POTASSIUM 4.5 mmol/L (3.5-5.1); TOTAL PROTEIN, SERUM 7.2 g/dL (6.4-8.2)
[2016-10-12 16:27] VITALS: BP 130/94
== END 2016-10-12 18:06 | disposition home or self-care (01) ==
LOC: EMS 11:53
DX: R05 Cough (principal); I11.0 Hypertensive heart disease with heart failure; I50.9 Heart failure, unspecified; I48.91 Unspecified atrial fibrillation; J44.9 Chronic obstructive pulmonary disease, unspecified; E78.00 Pure hypercholesterolemia, unspecified; G43.909 Migraine, unspecified, not intractable, without status migrainosus; F12.90 Cannabis use, unspecified, uncomplicated; Z79.2 Long term (current) use of antibiotics; Z95.0 Presence of cardiac pacemaker
CPT/HCPCS: 71020; 99285

== ENCOUNTER 2016-12-10 08:10 | Emergency (ER) | payer OTHER ==
[~2016-12-10] VITALS: Ht 190.5 cm; Wt 131.8 kg
[2016-12-10] MEDS ORDERED: CARV3 PO (08:20)
[2016-12-10] MEDS ORDERED: DABI75CA3 PO (08:20)
[2016-12-10] MEDS ORDERED: DILT60 PO (08:20)
[2016-12-10 08:45] LABS: BASOPHILS % (AUTO) 0.9 % (0.0-2.0); EOSINOPHILS % (AUTO) 2.6 % (1.0-6.0); HEMATOCRIT 36.2 % (41-53); HEMOGLOBIN 11.9 g/dL (13.5-17.5); LYMPHOCYTES # (AUTO) 2.4 K/uL (1.0-4.8); LYMPHOCYTES % (AUTO) 37.6 % (22.0-44.0); MEAN CORPUSCULAR HEMOGLOBIN 27.8 pg (26.0-34.0); MEAN CORPUSCULAR HGB CONC 32.8 G/dL (31.0-37.0); MEAN CORPUSCULAR VOLUME 85 fL (80-100); MONOCYTES # (AUTO) 0.5 K/uL (0.1-1.0); MONOCYTES % (AUTO) 7.7 % (2.0-9.0); NEUTROPHILS # (AUTO) 3.2 K/uL (1.8-7.7); NEUTROPHILS % (AUTO) 51.2 % (40.0-70.0); PLATELET COUNT (AUTO) 234 K/uL (150-450); RED BLOOD CELL COUNT(AUTO) 4.27 MIL/uL (4.50-5.90); RED CELL DISTRIBUTION WIDTH 17.4 % (11.5-14.5); WHITE BLOOD COUNT (AUTO) 6.3 K/uL (4.5-11.0)
[2016-12-10 08:56] LABS: INR 1.1 (0.9-1.1); PROTHROMBIN TIME 11.6 SEC (9.4-11.6)
[2016-12-10 09:00] LABS: RBC MORPHOLOGY COMMENT ABNORMAL RBC MORPH
[2016-12-10] MEDS ORDERED: DILTIAZEM HCL 5 MG/ML 5 ML VIAL IVP ONE (09:00)
[2016-12-10 09:02] LABS: ANION GAP 12 mmol/L (8-16); CALCIUM, TOTAL 8.4 mg/dL (8.8-10.5); CARBON DIOXIDE 25 mmol/L (22-29); CHLORIDE 107 mmol/L (98-107); CREATININE 0.99 mg/dL (0.60-1.30); GLOMERULAR FILTR. RATE CALC > 60 mL/min (>60); SODIUM SERUM 144 mmol/L (136-145); UREA NITROGEN, BLOOD 21 mg/dL (7-18)
[2016-12-10 09:05] LABS: B-TYPE NATRIURETIC PEPTIDE 186 pg/mL (0-100)
[2016-12-10 09:27] LABS: ALANINE AMINOTRANSFERASE 33 U/L (12-78); ALBUMIN 3.7 g/dL (3.4-5.0); ASPARTATE AMINOTRANSFERASE 40 U/L (15-37); BILIRUBIN,TOTAL 0.4 mg/dL (0.1-1.0); CREATINE KINASE MB 2.1 ng/mL (0-5); CREATINE KINASE, TOTAL 137 U/L (39-308); TOTAL PROTEIN, SERUM 7.1 g/dL (6.4-8.2)
[2016-12-10 09:31] LABS: APPEARANCE,URINE CLEAR (CLEAR); GLUCOSE, URINE (UA) NEGATIVE (NEGATIVE); KETONES,URINE NEGATIVE (NEGATIVE); LEUKOCYTE ESTERASE ,URINE NEGATIVE (NEGATIVE); OCCULT BLOOD,URINE TRACE (NEGATIVE); PH,URINE 5.5 (5.0-8.0); PROTEIN,URINE SEE CONFIRM (NEGATIVE)
[2016-12-10 09:32] LABS: ADD UA MICROSCOPIC YES
[2016-12-10 09:41] LABS: SULFOSALICYLIC ACID,URINE 2+ (Negative)
[2016-12-10 09:45] LABS: RBC,URINE 0-2 /HPF (0-2); SQUAMOUS EPITHELIAL CELL,UR Rare /LPF (None Seen); WBC,URINE 0-2 /HPF (0-5)
[2016-12-10] MEDS ORDERED: DIGOXIN 250 MCG/ML 2 ML AMP IVP ONE (10:30)
[2016-12-10] MEDS ORDERED: CARVEDILOL 3.125 MG TABLET PO ONE (10:30)
[2016-12-10 11:38] VITALS: BP 162/100
== END 2016-12-10 12:24 | disposition home or self-care (01) ==
LOC: EMS 08:14
DX: I48.91 Unspecified atrial fibrillation (principal); I11.0 Hypertensive heart disease with heart failure; I50.9 Heart failure, unspecified; E78.00 Pure hypercholesterolemia, unspecified; J44.9 Chronic obstructive pulmonary disease, unspecified; F12.90 Cannabis use, unspecified, uncomplicated
CPT/HCPCS: 36415; 71010; 80053; 81001; 82550; 82553; 83880; 84484; 85025; 85610; 85730; 93005; 96374; 99285; J1160; J3490

== ENCOUNTER 2016-12-23 10:40 | Inpatient (IN) | payer MEDICAID, OTHER ==
[~2016-12-23] VITALS: Ht 190.5 cm; Wt 133.0 kg
[~2016-12-23 10:40] MED LIST changes: -CARV25 PO; +CARV3 PO; -DIGO125T PO; -DILT30TA38 PO; +DILT60 PO; -DULO60CA44 PO; -FURO20 PO; -IPRA3AMP4 NEB; -LEVO500 PO; -LOSA50TA37 PO; -MORP15T PO; -NITR0.4T SL; -OXYC-522 PO; -PANT40TA25 PO; -PRED20 PO; -SLOWK8 PO; -SPIR25TA4 PO; -TAMS0.4C32 PO; -TOPI100 PO
[2016-12-23 11:54] LABS: BASOPHILS % (AUTO) 0.3 % (0.0-2.0); EOSINOPHILS % (AUTO) 1.1 % (1.0-6.0); HEMATOCRIT 39.7 % (41-53); HEMOGLOBIN 12.9 g/dL (13.5-17.5); LYMPHOCYTES # (AUTO) 1.2 K/uL (1.0-4.8); LYMPHOCYTES % (AUTO) 18.8 % (22.0-44.0); MEAN CORPUSCULAR HEMOGLOBIN 26.8 pg (26.0-34.0); MEAN CORPUSCULAR HGB CONC 32.5 G/dL (31.0-37.0); MEAN CORPUSCULAR VOLUME 82 fL (80-100); MONOCYTES # (AUTO) 0.7 K/uL (0.1-1.0); MONOCYTES % (AUTO) 11.2 % (2.0-9.0); NEUTROPHILS # (AUTO) 4.5 K/uL (1.8-7.7); NEUTROPHILS % (AUTO) 68.6 % (40.0-70.0); PLATELET COUNT (AUTO) 277 K/uL (150-450); RED BLOOD CELL COUNT(AUTO) 4.81 MIL/uL (4.50-5.90); RED CELL DISTRIBUTION WIDTH 18.1 % (11.5-14.5)
[2016-12-23 12:03] LABS: AMPHET/METH SCREEN,URINE NEGATIVE (NEGATIVE); BARBITURATE SCREEN, URINE NEGATIVE (NEGATIVE); BENZODIAZEPINES SCREEN,URINE NEGATIVE (NEGATIVE); CANNABINOID SCREEN,URINE NEGATIVE (NEGATIVE); COCAINE SCREEN,URINE NEGATIVE (NEGATIVE); METHADONE SCREEN, URINE NEGATIVE (NEGATIVE); OPIATE SCREEN,URINE NEGATIVE (NEGATIVE)
[2016-12-23 12:04] LABS: PHENCYCLIDINE SCREEN,URINE NEGATIVE (NEGATIVE)
[2016-12-23 12:07] LABS: ANION GAP 11 mmol/L (8-16); CALCIUM, TOTAL 9.4 mg/dL (8.8-10.5); CARBON DIOXIDE 27 mmol/L (22-29); CHLORIDE 102 mmol/L (98-107); CREATININE 1.18 mg/dL (0.60-1.30); GLOMERULAR FILTR. RATE CALC > 60 mL/min (>60); GLUCOSE,RANDOM 118 mg/dL (70-110); POTASSIUM 4.6 mmol/L (3.5-5.1); SODIUM SERUM 140 mmol/L (136-145); UREA NITROGEN, BLOOD 19 mg/dL (7-18)
[2016-12-23 12:10] LABS: ALANINE AMINOTRANSFERASE 20 U/L (12-78); ALBUMIN 4.2 g/dL (3.4-5.0); ALKALINE PHOSPHATASE 95 U/L (46-116); ASPARTATE AMINOTRANSFERASE 21 U/L (15-37); BILIRUBIN,TOTAL 1.3 mg/dL (0.1-1.0)
[2016-12-23] MEDS: LORazepam 2 MG TABLET PO PRN (14:49)
[2016-12-23] MEDS ORDERED: CARVEDILOL 3.125 MG TABLET PO ONE (15:00)
[2016-12-23] MEDS ORDERED: DILTIAZEM HCL 60 MG TABLET PO ONE (15:00)
[2016-12-23] MEDS ORDERED: LORazepam 1 MG TABLET PO ONE (15:00)
[2016-12-23 15:39] VITALS: BP 145/98
[2016-12-23] MEDS ORDERED: PNEUMOCOCCAL VACCINE POLYVALENT 0.5 ML VIAL [PPSV23] IM ONE (15:45)
[2016-12-23] MEDS ORDERED: INFLUENZA VIRUS VACCINE QVS 2017-18 (3YR+)/PF 60 MCG/0.5 ML SYRINGE IM ONE (15:45)
[2016-12-23] MEDS ORDERED: CYANOCOBALAMIN 1,000 MCG/ML VIAL IM ONE (16:45)
[2016-12-23] MEDS ORDERED: GuaiFENesin/D-METHORPHAN [SUGAR-FREE] 200-20MG/10 ML SYRUP UDCUP PO PRN (16:45)
[2016-12-23] MEDS ORDERED: LOPERAMIDE HCL 2 MG CAPSULE PO PRN (16:45)
[2016-12-23] MEDS ORDERED: HydrOXYzine PAMOATE 50 MG CAPSULE PO PRN (16:45)
[2016-12-23] MEDS ORDERED: LORazepam 2 MG TABLET PO PRN (16:45)
[2016-12-23 17:07] VITALS: BP 148/86
[2016-12-23 18:05] VITALS: BP 125/66
[2016-12-23] MEDS: DULoxetine HCL 60 MG CAPSULE PO SCH (18:51)
[2016-12-23] MEDS: THIAMINE HCL 100 MG TABLET PO SCH (18:51)
[2016-12-23] MEDS: NICOTINE 21 MG/24 HOUR PATCH TD SCH (18:53)
[2016-12-23 19:00] VITALS: BP 141/85
[2016-12-23 20:00] VITALS: BP 137/98
[2016-12-23] MEDS: DILTIAZEM HCL 60 MG TABLET PO SCH (21:32)
[2016-12-23] MEDS: ZOLPIDEM TARTRATE 10 MG TABLET PO PRN (22:44)
[2016-12-24] VITALS (8 sets, daily range): BP systolic 137–154; BP diastolic 88–100
[2016-12-24] MEDS ORDERED: LORazepam 2 MG TABLET PO PRN (07:00)
[2016-12-24] MEDS ORDERED: NITROGLYCERIN 0.4 MG SUBLINGUAL TABLET #25 SL PRN (08:15)
[2016-12-24] MEDS ORDERED: BACITRACIN 28.4 GM OINTMENT TP PRN (08:15)
[2016-12-24] MEDS ORDERED: ACETAMINOPHEN 325 MG TABLET PO PRN (08:15)
[2016-12-24] MEDS ORDERED: LOPERAMIDE HCL 2 MG CAPSULE PO PRN (08:15)
[2016-12-24] MEDS ORDERED: MAGNESIUM HYDROXIDE SUSPENSION 30 ML UDCUP PO PRN (08:15)
[2016-12-24] MEDS ORDERED: BENZOCAINE/MENTHOL LOZENGE [8 LOZENGES/PACKET] MM PRN (08:15)
[2016-12-24] MEDS ORDERED: MAG HYDROX/AL HYDROX/SIMETH ES 30 ML SUSPENSION UDCUP PO PRN (08:15)
[2016-12-24] MEDS ORDERED: ONDANSETRON HCL 4 MG TABLET PO PRN (08:15)
[2016-12-24] MEDS ORDERED: PETROLATUM,WHITE 71 GM JELLY TP PRN (08:15)
[2016-12-24] MEDS ORDERED: ALBUTEROL SULFATE HFA 90 MCG/PUFF 8 GM INHALER IH PRN (08:15)
[2016-12-24 09:04] LABS: CHOL/HDL RATIO 2.3 (4.2-7.3)
[2016-12-24] MEDS: DABIGATRAN ETEXILATE MESYLATE 75 MG CAPSULE PO SCH ×2 (10:17→17:35)
[2016-12-24] MEDS: NICOTINE 21 MG/24 HOUR PATCH TD SCH (10:17)
[2016-12-24] MEDS: THIAMINE HCL 100 MG TABLET PO SCH ×2 (10:17→17:35)
[2016-12-24] MEDS: MULTIVITAMINS WITH MINERALS, THERAPEUTIC TABLET PO SCH (10:17)
[2016-12-24] MEDS: DILTIAZEM HCL 60 MG TABLET PO SCH ×4 (10:17→20:58)
[2016-12-24] MEDS: FOLIC ACID 1 MG TABLET PO SCH (10:17)
[2016-12-24] MEDS: CARVEDILOL 3.125 MG TABLET PO SCH (10:18)
[2016-12-24] MEDS: OMEPRAZOLE 20 MG CAPSULE PO SCH (10:18)
[2016-12-24] MEDS: DULoxetine HCL 60 MG CAPSULE PO SCH ×2 (10:18→17:34)
[2016-12-24] MEDS: LORazepam 2 MG TABLET PO SCH ×4 (10:19→20:58)
[2016-12-24] MEDS: LORazepam 2 MG TABLET PO PRN (11:29)
[2016-12-24 19:25] LABS: FREE T4 (FREE THYROXINE) 1.19 ng/dL (0.76-1.46); THYROID STIMULATING HORMONE 1.89 uIU/mL (0.36-3.74)
[2016-12-25 03:05] VITALS: BP 145/102
[2016-12-25] MEDS: LORazepam 2 MG TABLET PO PRN (03:14)
[2016-12-25 03:16] VITALS: BP 130/79
[2016-12-25] MEDS: IBUPROFEN 600 MG TABLET PO PRN (03:33)
[2016-12-25 08:00] VITALS: BP 150/91
[2016-12-25] MEDS: LORazepam 2 MG TABLET PO SCH ×4 (09:00→21:08)
[2016-12-25] MEDS: DILTIAZEM HCL 60 MG TABLET PO SCH ×4 (09:34→21:07)
[2016-12-25] MEDS: CARVEDILOL 3.125 MG TABLET PO SCH (09:34)
[2016-12-25] MEDS: MULTIVITAMINS WITH MINERALS, THERAPEUTIC TABLET PO SCH (09:34)
[2016-12-25] MEDS: OMEPRAZOLE 20 MG CAPSULE PO SCH (09:34)
[2016-12-25] MEDS: DABIGATRAN ETEXILATE MESYLATE 75 MG CAPSULE PO SCH ×2 (09:35→16:32)
[2016-12-25] MEDS: THIAMINE HCL 100 MG TABLET PO SCH ×2 (09:35→16:32)
[2016-12-25] MEDS: DULoxetine HCL 60 MG CAPSULE PO SCH ×2 (09:36→16:32)
[2016-12-25] MEDS: FOLIC ACID 1 MG TABLET PO SCH (09:37)
[2016-12-25] MEDS: NICOTINE 21 MG/24 HOUR PATCH TD SCH (09:49)
[2016-12-25 12:45] VITALS: BP 144/78
[2016-12-25 16:41] VITALS: BP 136/87
[2016-12-26 02:57] VITALS: BP 125/89
[2016-12-26] MEDS ORDERED: LORazepam 1 MG TABLET PO PRN (07:00)
[2016-12-26 08:00] VITALS: BP 172/112
[2016-12-26] MEDS: LORazepam 1 MG TABLET PO SCH ×4 (08:40→20:24)
[2016-12-26] MEDS: DILTIAZEM HCL 60 MG TABLET PO SCH ×4 (08:40→20:24)
[2016-12-26] MEDS: OMEPRAZOLE 20 MG CAPSULE PO SCH (08:40)
[2016-12-26] MEDS: THIAMINE HCL 100 MG TABLET PO SCH ×2 (08:40→16:59)
[2016-12-26] MEDS: DULoxetine HCL 60 MG CAPSULE PO SCH ×2 (08:40→16:59)
[2016-12-26] MEDS: CARVEDILOL 3.125 MG TABLET PO SCH (08:40)
[2016-12-26] MEDS: FOLIC ACID 1 MG TABLET PO SCH (08:40)
[2016-12-26] MEDS: DABIGATRAN ETEXILATE MESYLATE 75 MG CAPSULE PO SCH ×2 (08:41→16:59)
[2016-12-26] MEDS: MULTIVITAMINS WITH MINERALS, THERAPEUTIC TABLET PO SCH (08:41)
[2016-12-26] MEDS: NICOTINE 21 MG/24 HOUR PATCH TD SCH (08:49)
[2016-12-26 10:00] VITALS: BP 139/91
[2016-12-26 16:30] VITALS: BP 146/103
[2016-12-26 19:30] VITALS: BP 146/103
[2016-12-27 04:05] VITALS: BP 148/82
[2016-12-27] MEDS ORDERED: LORazepam 1 MG TABLET PO PRN (07:00)
[2016-12-27 09:00] VITALS: BP 177/104
[2016-12-27] MEDS: OMEPRAZOLE 20 MG CAPSULE PO SCH (09:46)
[2016-12-27] MEDS: FOLIC ACID 1 MG TABLET PO SCH (09:46)
[2016-12-27] MEDS: CARVEDILOL 3.125 MG TABLET PO SCH (09:46)
[2016-12-27] MEDS: DULoxetine HCL 60 MG CAPSULE PO SCH ×2 (09:46→16:16)
[2016-12-27] MEDS: MULTIVITAMINS WITH MINERALS, THERAPEUTIC TABLET PO SCH (09:46)
[2016-12-27] MEDS: THIAMINE HCL 100 MG TABLET PO SCH ×2 (09:46→16:16)
[2016-12-27] MEDS: NICOTINE 21 MG/24 HOUR PATCH TD SCH (09:48)
[2016-12-27] MEDS: DABIGATRAN ETEXILATE MESYLATE 75 MG CAPSULE PO SCH ×2 (09:49→16:16)
[2016-12-27] MEDS: DILTIAZEM HCL 60 MG TABLET PO SCH ×4 (09:50→20:29)
[2016-12-27 12:00] VITALS: BP 160/90
[2016-12-27 16:00] VITALS: BP 145/83
[2016-12-27] MEDS: HALOPERIDOL 5 MG TABLET PO PRN (16:21)
[2016-12-27 17:00] VITALS: BP_SYST 142; BP_SYST 154; BP_DIAS 103; BP_DIAS 87
[2016-12-27 17:56] VITALS: BP 154/103
[2016-12-28 05:30] VITALS: BP 157/107
[2016-12-28] MEDS: IBUPROFEN 600 MG TABLET PO PRN (05:53)
[2016-12-28] MEDS: CloNIDine HCL 0.1 MG TABLET PO PRN (05:53)
[2016-12-28] MEDS ORDERED: ARIPiprazole 5 MG TABLET PO SCH (09:00)
[2016-12-28 09:40] VITALS: BP 158/109
[2016-12-28] MEDS: FOLIC ACID 1 MG TABLET PO SCH (09:43)
[2016-12-28] MEDS: THIAMINE HCL 100 MG TABLET PO SCH ×2 (09:43→17:48)
[2016-12-28] MEDS: CARVEDILOL 3.125 MG TABLET PO SCH (09:43)
[2016-12-28] MEDS: DULoxetine HCL 60 MG CAPSULE PO SCH ×2 (09:43→17:48)
[2016-12-28] MEDS: DILTIAZEM HCL 60 MG TABLET PO SCH ×4 (09:43→21:51)
[2016-12-28] MEDS: OMEPRAZOLE 20 MG CAPSULE PO SCH (09:43)
[2016-12-28] MEDS: DABIGATRAN ETEXILATE MESYLATE 75 MG CAPSULE PO SCH ×2 (09:43→17:48)
[2016-12-28] MEDS: MULTIVITAMINS WITH MINERALS, THERAPEUTIC TABLET PO SCH (09:43)
[2016-12-28] MEDS: NICOTINE 21 MG/24 HOUR PATCH TD SCH (09:49)
[2016-12-28 11:23] VITALS: BP 150/108
[2016-12-28] MEDS ORDERED: CARVEDILOL 3.125 MG TABLET PO ONE (13:00)
[2016-12-28 13:20] VITALS: BP 132/62
[2016-12-28] MEDS: LORazepam 2 MG TABLET PO PRN (14:17)
[2016-12-28] MEDS: HALOPERIDOL 5 MG TABLET PO PRN (14:17)
[2016-12-28 17:25] VITALS: BP 127/69
[2016-12-28 17:31] VITALS: BP_SYST 127; BP_SYST 154; BP_DIAS 103; BP_DIAS 69
[2016-12-28] MEDS: ZOLPIDEM TARTRATE 10 MG TABLET PO PRN (22:01)
[2016-12-29 06:17] VITALS: BP 143/95
[2016-12-29 08:30] VITALS: BP 140/80
[2016-12-29] MEDS: DILTIAZEM HCL 60 MG TABLET PO SCH ×4 (08:58→21:09)
[2016-12-29] MEDS: DABIGATRAN ETEXILATE MESYLATE 75 MG CAPSULE PO SCH ×2 (08:59→17:01)
[2016-12-29] MEDS: DULoxetine HCL 60 MG CAPSULE PO SCH ×2 (08:59→17:01)
[2016-12-29] MEDS: OMEPRAZOLE 20 MG CAPSULE PO SCH (08:59)
[2016-12-29] MEDS: MULTIVITAMINS WITH MINERALS, THERAPEUTIC TABLET PO SCH (08:59)
[2016-12-29] MEDS: CARVEDILOL 3.125 MG TABLET PO SCH (08:59)
[2016-12-29] MEDS: FOLIC ACID 1 MG TABLET PO SCH (08:59)
[2016-12-29] MEDS: THIAMINE HCL 100 MG TABLET PO SCH ×2 (08:59→17:01)
[2016-12-29] MEDS: NICOTINE 21 MG/24 HOUR PATCH TD SCH (09:03)
[2016-12-29] MEDS: ARIPiprazole 10 MG TABLET PO SCH (09:04)
[2016-12-29] MEDS: HALOPERIDOL 5 MG TABLET PO PRN ×2 (13:31→19:35)
[2016-12-29] MEDS: LORazepam 2 MG TABLET PO PRN ×2 (13:31→19:35)
[2016-12-29 19:35] VITALS: BP 124/73
[2016-12-29] MEDS: ZOLPIDEM TARTRATE 10 MG TABLET PO PRN (21:09)
[2016-12-30 08:59] VITALS: BP 161/103
[2016-12-30] MEDS: DABIGATRAN ETEXILATE MESYLATE 75 MG CAPSULE PO SCH ×2 (09:35→16:07)
[2016-12-30] MEDS: DILTIAZEM HCL 60 MG TABLET PO SCH ×3 (09:35→16:07)
[2016-12-30] MEDS: FOLIC ACID 1 MG TABLET PO SCH (09:35)
[2016-12-30] MEDS: THIAMINE HCL 100 MG TABLET PO SCH ×2 (09:35→16:07)
[2016-12-30] MEDS: ARIPiprazole 10 MG TABLET PO SCH (09:35)
[2016-12-30] MEDS: OMEPRAZOLE 20 MG CAPSULE PO SCH (09:36)
[2016-12-30] MEDS: DULoxetine HCL 60 MG CAPSULE PO SCH ×2 (09:36→16:07)
[2016-12-30] MEDS: MULTIVITAMINS WITH MINERALS, THERAPEUTIC TABLET PO SCH (09:36)
[2016-12-30] MEDS: CARVEDILOL 3.125 MG TABLET PO SCH (09:36)
[2016-12-30] MEDS: NICOTINE 21 MG/24 HOUR PATCH TD SCH (09:38)
[2016-12-30 10:00] VITALS: BP 149/90
[2016-12-30 12:00] VITALS: BP 149/115
[2016-12-30] MEDS: CloNIDine HCL 0.1 MG TABLET PO PRN (12:04)
[2016-12-30 13:00] VITALS: BP 136/88
[2016-12-30] MEDS ORDERED: DULO60CA44 PO (13:48)
[2016-12-30] MEDS ORDERED: ARIP10TA8 PO (13:48)
== END 2016-12-30 16:05 | disposition home or self-care (01) | DRG 751 ==
LOC: EMS 10:42 → AHU 14:22 → 3EI 18:00
PROVIDERS: ADMIT Psychiatry & Neurology Psychiatry; ATTEND Psychiatry & Neurology Psychiatry
PROC: 3E0234Z Introduction of Serum, Toxoid and Vaccine into Muscle, Percutaneous Approach (ICD-10-PCS; principal; 2016-12-24)
PROC: 3E0234Z Introduction of Serum, Toxoid and Vaccine into Muscle, Percutaneous Approach (ICD-10-PCS; 2016-12-24)
DX: F33.2 Major depressive disorder, recurrent severe without psychotic features (principal); R45.851 Suicidal ideations; I11.0 Hypertensive heart disease with heart failure; I50.20 Unspecified systolic (congestive) heart failure; I48.2 Chronic atrial fibrillation; J44.9 Chronic obstructive pulmonary disease, unspecified; G43.909 Migraine, unspecified, not intractable, without status migrainosus; E78.5 Hyperlipidemia, unspecified; F17.200 Nicotine dependence, unspecified, uncomplicated; G89.29 Other chronic pain; F90.9 Attention-deficit hyperactivity disorder, unspecified type; F12.90 Cannabis use, unspecified, uncomplicated; K21.9 Gastro-esophageal reflux disease without esophagitis; G47.33 Obstructive sleep apnea (adult) (pediatric); M19.90 Unspecified osteoarthritis, unspecified site; I25.10 Atherosclerotic heart disease of native coronary artery without angina pectoris; G47.00 Insomnia, unspecified; F10.20 Alcohol dependence, uncomplicated; E66.9 Obesity, unspecified; Z68.36 Body mass index [BMI] 36.0-36.9, adult; Z23 Encounter for immunization; Z59.0 Homelessness; Z79.899 Other long term (current) drug therapy; Z95.810 Presence of automatic (implantable) cardiac defibrillator; Z86.711 Personal history of pulmonary embolism
CPT/HCPCS: 84439; 84443; 90471; 99285; G0480; J3420

== ENCOUNTER 2017-04-17 11:59 | Inpatient (IN) | payer MEDICAID, OTHER ==
[~2017-04-17] VITALS: Ht 190.5 cm; Wt 132.6 kg
[~2017-04-17 11:59] MED LIST changes: +ARIP10TA8 PO; +DULO60CA44 PO
[2017-04-17] MEDS ORDERED: LOSA25TA21 PO (12:29)
[2017-04-17] MEDS ORDERED: AMLO-511 PO (12:29)
[2017-04-17] MEDS ORDERED: DIGO-44 PO (12:29)
[2017-04-17] MEDS ORDERED: ONDANSETRON HCL 4 MG/2 ML VIAL IVP ONE (12:45)
[2017-04-17] MEDS ORDERED: MORPHINE SULFATE 4 MG/ML SYRINGE IVP ONE (12:45)
[2017-04-17] MEDS ORDERED: SODIUM CHLORIDE 0.9% 1,000 ML IV ONE (12:45)
[2017-04-17] MEDS ORDERED: SODIUM CHLORIDE 0.9% 500 ML IV ONE ×2 (12:45→16:58)
[2017-04-17 12:52] LABS: BASOPHILS % (AUTO) 0.4 % (0.0-2.0); EOSINOPHILS % (AUTO) 0 % (1.0-6.0); HEMATOCRIT 43.1 % (41-53); HEMOGLOBIN 14.9 g/dL (13.5-17.5); LYMPHOCYTES # (AUTO) 1.1 K/uL (1.0-4.8); MEAN CORPUSCULAR HEMOGLOBIN 29.7 pg (26.0-34.0); MEAN CORPUSCULAR HGB CONC 34.5 G/dL (31.0-37.0); MEAN CORPUSCULAR VOLUME 86 fL (80-100); MONOCYTES # (AUTO) 0.7 K/uL (0.1-1.0); MONOCYTES % (AUTO) 6.1 % (2.0-9.0); NEUTROPHILS # (AUTO) 10.3 K/uL (1.8-7.7); NEUTROPHILS % (AUTO) 84.5 % (40.0-70.0); PLATELET COUNT (AUTO) 120 K/uL (150-450); RED CELL DISTRIBUTION WIDTH 18.7 % (11.5-14.5)
[2017-04-17 13:01] LABS: CALCIUM, TOTAL 8.9 mg/dL (8.8-10.5); CREATININE 1.7 mg/dL (0.60-1.30); POTASSIUM 3.6 mmol/L (3.5-5.1)
[2017-04-17 13:03] LABS: INR 1.1 (0.9-1.1); PROTHROMBIN TIME 11.3 SEC (9.4-11.6)
[2017-04-17 13:06] LABS: ALBUMIN 3.1 g/dL (3.4-5.0); BILIRUBIN,TOTAL 0.9 mg/dL (0.1-1.0); TOTAL PROTEIN, SERUM 7.2 g/dL (6.4-8.2)
[2017-04-17 13:25] LABS: C-REACTIVE PROTEIN QUANT 32.79 mg/dL (0.00-0.30)
[2017-04-17] MEDS ORDERED: CEFEPIME HCL 2 GM in DEXTROSE 5%-WATER 20 ML IV ONE (13:30)
[2017-04-17] MEDS ORDERED: HYDROmorphone 2 MG/ML SYRINGE IVP ONE (13:45)
[2017-04-17 13:54] LABS: ERYTHROCYTE SEDIMENTATION RATE 49 MM/HR (0-15)
[2017-04-17] MEDS ORDERED: DEXTROSE 5% IV ONE (14:00)
[2017-04-17] MEDS ORDERED: VANCOMYCIN HCL IV ONE (14:00)
[2017-04-17] MEDS ORDERED: 0.9% SODIUM CHLORIDE 10 ML SYRINGE IVP PRN (14:00)
[2017-04-17] MEDS ORDERED: ONDANSETRON HCL 4 MG/2 ML VIAL IVP PRN ×2 (14:00→19:45)
[2017-04-17] MEDS ORDERED: WATER IV ONE (14:00)
[2017-04-17] MEDS ORDERED: ACETAMINOPHEN 325 MG TABLET PO PRN (14:00)
[2017-04-17 16:06] VITALS: BP 102/60
[2017-04-17] MEDS ORDERED: *CLINICAL-CEFEPIME DOSING CLINICAL ONE ×2 (17:30→20:00)
[2017-04-17] MEDS ORDERED: HYDROCODONE/ACETAMINOPHEN 5-325 MG TABLET PO PRN (17:30)
[2017-04-17] MEDS: HYDROmorphone 2 MG/ML SYRINGE IVP PRN (18:02)
[2017-04-17 19:30] VITALS: BP 90/60
[2017-04-17] MEDS ORDERED: BISACODYL 10 MG RECTAL RECTAL SUPPOSITORY PR PRN (19:45)
[2017-04-17] MEDS: LOSARTAN POTASSIUM 25 MG TABLET PO SCH (19:45)
[2017-04-17] MEDS: MUPIROCIN CALCIUM 2% 22 GM OINTMENT TP SCH (20:56)
[2017-04-17] MEDS: ARIPiprazole 10 MG TABLET PO SCH (20:56)
[2017-04-17] MEDS: VANCOMYCIN HCL 1 GM/D5% WATER 200 ML IV SCH (20:56)
[2017-04-17] MEDS: DULoxetine HCL 60 MG CAPSULE PO SCH (20:56)
[2017-04-17] MEDS: DABIGATRAN ETEXILATE MESYLATE 75 MG CAPSULE PO SCH (20:56)
[2017-04-17] MEDS: DILTIAZEM HCL 60 MG TABLET PO SCH (21:00)
[2017-04-17] MEDS: LACTOBACILLUS ACIDOPHILUS/BULGARICUS GRANULES PACKET PO SCH (21:13)
[2017-04-17 21:26] LABS: BASOPHILS % (AUTO) 0.4 % (0.0-2.0); EOSINOPHILS % (AUTO) 0.1 % (1.0-6.0); HEMATOCRIT 40.3 % (41-53); HEMOGLOBIN 13.6 g/dL (13.5-17.5); LYMPHOCYTES # (AUTO) 1.3 K/uL (1.0-4.8); LYMPHOCYTES % (AUTO) 12.5 % (22.0-44.0); MEAN CORPUSCULAR HEMOGLOBIN 29.1 pg (26.0-34.0); MEAN CORPUSCULAR HGB CONC 33.8 G/dL (31.0-37.0); MEAN CORPUSCULAR VOLUME 86 fL (80-100); MONOCYTES # (AUTO) 0.9 K/uL (0.1-1.0); MONOCYTES % (AUTO) 8.4 % (2.0-9.0); NEUTROPHILS # (AUTO) 8.2 K/uL (1.8-7.7); NEUTROPHILS % (AUTO) 78.6 % (40.0-70.0); PLATELET COUNT (AUTO) 113 K/uL (150-450); RED BLOOD CELL COUNT(AUTO) 4.68 MIL/uL (4.50-5.90); RED CELL DISTRIBUTION WIDTH 18.9 % (11.5-14.5)
[2017-04-17 21:40] LABS: ALBUMIN 2.8 g/dL (3.4-5.0); BILIRUBIN,TOTAL 0.7 mg/dL (0.1-1.0); CALCIUM, TOTAL 8.1 mg/dL (8.8-10.5); CREATININE 2.06 mg/dL (0.60-1.30); POTASSIUM 3.6 mmol/L (3.5-5.1); TOTAL PROTEIN, SERUM 6.7 g/dL (6.4-8.2)
[2017-04-17] MEDS ORDERED: DiphenhydrAMINE HCL 25 MG CAPSULE PO PRN (22:15)
[2017-04-17] MEDS: CEFEPIME HCL 2 GM in DEXTROSE 5%-WATER 20 ML IV SCH (22:15)
[2017-04-17 23:56] VITALS: BP 103/64
[2017-04-18] MEDS: HYDROCODONE/ACETAMINOPHEN 5-325 MG TABLET PO PRN ×3 (00:45→20:50)
[2017-04-18] MEDS: HYDROmorphone 2 MG/ML SYRINGE IVP PRN ×2 (03:33→20:20)
[2017-04-18 04:00] VITALS: BP 130/71
[2017-04-18 06:27] LABS: BASOPHILS % (AUTO) 0.6 % (0.0-2.0); EOSINOPHILS % (AUTO) 0.5 % (1.0-6.0); HEMATOCRIT 37.6 % (41-53); HEMOGLOBIN 12.7 g/dL (13.5-17.5); LYMPHOCYTES # (AUTO) 1.3 K/uL (1.0-4.8); LYMPHOCYTES % (AUTO) 15.6 % (22.0-44.0); MEAN CORPUSCULAR HEMOGLOBIN 29.2 pg (26.0-34.0); MEAN CORPUSCULAR HGB CONC 33.7 G/dL (31.0-37.0); MEAN CORPUSCULAR VOLUME 87 fL (80-100); MONOCYTES # (AUTO) 0.9 K/uL (0.1-1.0); MONOCYTES % (AUTO) 10.7 % (2.0-9.0); NEUTROPHILS # (AUTO) 6.2 K/uL (1.8-7.7); NEUTROPHILS % (AUTO) 72.6 % (40.0-70.0); PLATELET COUNT (AUTO) 106 K/uL (150-450); RED BLOOD CELL COUNT(AUTO) 4.35 MIL/uL (4.50-5.90); RED CELL DISTRIBUTION WIDTH 18.9 % (11.5-14.5)
[2017-04-18 06:45] LABS: ALBUMIN 2.5 g/dL (3.4-5.0); BILIRUBIN,TOTAL 0.7 mg/dL (0.1-1.0); CALCIUM, TOTAL 8.2 mg/dL (8.8-10.5); CREATININE 2.22 mg/dL (0.60-1.30); POTASSIUM 3.6 mmol/L (3.5-5.1); TOTAL PROTEIN, SERUM 6.2 g/dL (6.4-8.2)
[2017-04-18 07:21] LABS: C-REACTIVE PROTEIN QUANT 27.41 mg/dL (0.00-0.30)
[2017-04-18 08:12] VITALS: BP 108/69
[2017-04-18] MEDS: VANCOMYCIN HCL 1 GM/D5% WATER 200 ML IV SCH (08:28)
[2017-04-18] MEDS: LACTOBACILLUS ACIDOPHILUS/BULGARICUS GRANULES PACKET PO SCH ×2 (08:28→20:22)
[2017-04-18] MEDS: CARVEDILOL 6.25 MG TABLET PO SCH (08:29)
[2017-04-18] MEDS: ARIPiprazole 10 MG TABLET PO SCH (08:29)
[2017-04-18] MEDS: LOSARTAN POTASSIUM 25 MG TABLET PO SCH (08:29)
[2017-04-18] MEDS: DABIGATRAN ETEXILATE MESYLATE 75 MG CAPSULE PO SCH ×2 (08:29→20:22)
[2017-04-18] MEDS: DULoxetine HCL 60 MG CAPSULE PO SCH ×2 (08:29→20:21)
[2017-04-18] MEDS: DILTIAZEM HCL 60 MG TABLET PO SCH ×4 (08:29→20:23)
[2017-04-18 08:31] LABS: ERYTHROCYTE SEDIMENTATION RATE 51 MM/HR (0-15)
[2017-04-18] MEDS ORDERED: AmLODIPine BESYLATE 5 MG TABLET PO SCH (09:00)
[2017-04-18] MEDS: MUPIROCIN CALCIUM 2% 22 GM OINTMENT TP SCH ×3 (09:17→20:35)
[2017-04-18] MEDS: CEFEPIME HCL 2 GM in DEXTROSE 5%-WATER 20 ML IV SCH (11:16)
[2017-04-18 11:42] VITALS: BP 93/51
[2017-04-18] MEDS ORDERED: CARV6 PO (12:23)
[2017-04-18 15:53] VITALS: BP 93/52
[2017-04-18 20:20] VITALS: BP 115/60
[2017-04-18] MEDS: VANCOMYCIN HCL 750 MG in DEXTROSE 5%-WATER 150 ML IV SCH (20:49)
[2017-04-18 23:24] VITALS: BP 109/67
[2017-04-19 04:19] VITALS: BP 125/71
[2017-04-19] MEDS: HYDROmorphone 2 MG/ML SYRINGE IVP PRN ×2 (04:33→21:33)
[2017-04-19] MEDS: HYDROCODONE/ACETAMINOPHEN 5-325 MG TABLET PO PRN ×2 (04:33→08:16)
[2017-04-19 06:59] LABS: CALCIUM, TOTAL 8.2 mg/dL (8.8-10.5); CREATININE 2.16 mg/dL (0.60-1.30); POTASSIUM 3.6 mmol/L (3.5-5.1); VANCOMYCIN,RANDOM 19.5 mcg/mL (25.0-50.0)
[2017-04-19 07:49] VITALS: BP 113/66
[2017-04-19 08:15] VITALS: BP 118/70
[2017-04-19] MEDS: VANCOMYCIN HCL 750 MG in DEXTROSE 5%-WATER 150 ML IV SCH ×2 (08:15→19:55)
[2017-04-19] MEDS: ARIPiprazole 10 MG TABLET PO SCH (08:16)
[2017-04-19] MEDS: DABIGATRAN ETEXILATE MESYLATE 75 MG CAPSULE PO SCH ×2 (08:16→19:55)
[2017-04-19] MEDS: LACTOBACILLUS ACIDOPHILUS/BULGARICUS GRANULES PACKET PO SCH ×2 (08:16→19:55)
[2017-04-19] MEDS: MUPIROCIN CALCIUM 2% 22 GM OINTMENT TP SCH ×2 (08:17→16:42)
[2017-04-19] MEDS: DILTIAZEM HCL 60 MG TABLET PO SCH ×4 (09:00→21:00)
[2017-04-19] MEDS: CARVEDILOL 6.25 MG TABLET PO SCH (09:00)
[2017-04-19] MEDS: LOSARTAN POTASSIUM 25 MG TABLET PO SCH (09:00)
[2017-04-19] MEDS ORDERED: CEFEPIME HCL 2 GM in DEXTROSE 5%-WATER 20 ML IV SCH (10:00)
[2017-04-19 11:34] VITALS: BP 112/58
[2017-04-19] MEDS: DULoxetine HCL 60 MG CAPSULE PO SCH ×2 (11:59→21:00)
[2017-04-19 16:34] VITALS: BP 128/89
[2017-04-19] MEDS ORDERED: RINGERS SOLUTION,LACTATED 1,000 ML IV ONE (19:42)
[2017-04-20 00:30] VITALS: BP 110/73
[2017-04-20 06:15] VITALS: BP 112/70
[2017-04-20 06:25] LABS: CALCIUM, TOTAL 8.2 mg/dL (8.8-10.5); CREATININE 1.65 mg/dL (0.60-1.30); POTASSIUM 3.5 mmol/L (3.5-5.1)
[2017-04-20 08:14] VITALS: BP 152/90
[2017-04-20] MEDS: VANCOMYCIN HCL 750 MG in DEXTROSE 5%-WATER 150 ML IV SCH ×2 (08:14→20:16)
[2017-04-20] MEDS: DILTIAZEM HCL 60 MG TABLET PO SCH ×4 (08:14→20:16)
[2017-04-20] MEDS: DULoxetine HCL 60 MG CAPSULE PO SCH ×2 (08:15→20:16)
[2017-04-20] MEDS: HYDROmorphone 2 MG/ML SYRINGE IVP PRN ×3 (08:16→22:33)
[2017-04-20] MEDS: DABIGATRAN ETEXILATE MESYLATE 75 MG CAPSULE PO SCH ×2 (08:16→20:16)
[2017-04-20] MEDS: CARVEDILOL 6.25 MG TABLET PO SCH (08:17)
[2017-04-20] MEDS: LACTOBACILLUS ACIDOPHILUS/BULGARICUS GRANULES PACKET PO SCH ×2 (08:17→20:16)
[2017-04-20] MEDS: LOSARTAN POTASSIUM 25 MG TABLET PO SCH (08:17)
[2017-04-20] MEDS: ARIPiprazole 10 MG TABLET PO SCH (08:17)
[2017-04-20] MEDS: MUPIROCIN CALCIUM 2% 22 GM OINTMENT TP SCH ×3 (09:00→20:16)
[2017-04-20 11:40] VITALS: BP 142/77
[2017-04-20] MEDS: HYDROCODONE/ACETAMINOPHEN 5-325 MG TABLET PO PRN ×2 (12:23→19:52)
[2017-04-20 14:22] LABS: BASOPHILS % (AUTO) 0.3 % (0.0-2.0); EOSINOPHILS % (AUTO) 2.1 % (1.0-6.0); HEMATOCRIT 36.1 % (41-53); HEMOGLOBIN 12.1 g/dL (13.5-17.5); LYMPHOCYTES % (AUTO) 15.2 % (22.0-44.0); MEAN CORPUSCULAR HEMOGLOBIN 29.2 pg (26.0-34.0); MEAN CORPUSCULAR HGB CONC 33.5 G/dL (31.0-37.0); MEAN CORPUSCULAR VOLUME 87 fL (80-100); MONOCYTES % (AUTO) 14.9 % (2.0-9.0); NEUTROPHILS # (AUTO) 4.5 K/uL (1.8-7.7); NEUTROPHILS % (AUTO) 67.5 % (40.0-70.0); PLATELET COUNT (AUTO) 161 K/uL (150-450); RED BLOOD CELL COUNT(AUTO) 4.15 MIL/uL (4.50-5.90); RED CELL DISTRIBUTION WIDTH 17.8 % (11.5-14.5)
[2017-04-20 14:25] LABS: CALCIUM, TOTAL 8.3 mg/dL (8.8-10.5); CREATININE 1.36 mg/dL (0.60-1.30); POTASSIUM 3.6 mmol/L (3.5-5.1)
[2017-04-20 14:27] LABS: C-REACTIVE PROTEIN QUANT 20.48 mg/dL (0.00-0.30)
[2017-04-20 16:20] VITALS: BP 129/69
[2017-04-20 20:00] VITALS: BP 141/71
[2017-04-20] MEDS: CEFEPIME HCL 2 GM in DEXTROSE 5%-WATER 20 ML IV SCH (22:27)
[2017-04-21] VITALS: BP 132/72
[2017-04-21 04:00] VITALS: BP 145/86
[2017-04-21] MEDS: HYDROCODONE/ACETAMINOPHEN 5-325 MG TABLET PO PRN ×3 (04:55→17:23)
[2017-04-21 06:37] LABS: CALCIUM, TOTAL 8.7 mg/dL (8.8-10.5); CREATININE 1.37 mg/dL (0.60-1.30); POTASSIUM 4.2 mmol/L (3.5-5.1); VANCOMYCIN,RANDOM 13.7 mcg/mL (25.0-50.0)
[2017-04-21 07:50] VITALS: BP 158/86
[2017-04-21] MEDS: VANCOMYCIN HCL 750 MG in DEXTROSE 5%-WATER 150 ML IV SCH (08:41)
[2017-04-21] MEDS: CARVEDILOL 6.25 MG TABLET PO SCH (08:42)
[2017-04-21] MEDS: DULoxetine HCL 60 MG CAPSULE PO SCH ×2 (08:42→20:48)
[2017-04-21] MEDS: ARIPiprazole 10 MG TABLET PO SCH (08:42)
[2017-04-21] MEDS: DABIGATRAN ETEXILATE MESYLATE 75 MG CAPSULE PO SCH ×2 (08:42→20:49)
[2017-04-21] MEDS: LACTOBACILLUS ACIDOPHILUS/BULGARICUS GRANULES PACKET PO SCH ×2 (08:42→20:48)
[2017-04-21] MEDS: DILTIAZEM HCL 60 MG TABLET PO SCH ×4 (08:42→20:48)
[2017-04-21] MEDS: HYDROmorphone 2 MG/ML SYRINGE IVP PRN ×2 (08:42→20:23)
[2017-04-21] MEDS: LOSARTAN POTASSIUM 25 MG TABLET PO SCH (08:42)
[2017-04-21] MEDS: MUPIROCIN CALCIUM 2% 22 GM OINTMENT TP SCH ×3 (08:48→20:49)
[2017-04-21 11:07] VITALS: BP 148/84
[2017-04-21] MEDS: CEFEPIME HCL 2 GM in DEXTROSE 5%-WATER 20 ML IV SCH (12:02)
[2017-04-21] MEDS ORDERED: SODIUM CHLORIDE 0.45% 1,000 ML IV SCH (13:15)
[2017-04-21 15:18] VITALS: BP 127/86
[2017-04-21] MEDS ORDERED: IOVERSOL 320 MG/ML 100 ML VIAL ONE (15:25)
[2017-04-21] MEDS ORDERED: SODIUM CHLORIDE 0.9% 0 ML ONE (15:25)
[2017-04-21 19:33] VITALS: BP 133/84
[2017-04-21] MEDS ORDERED: VANCOMYCIN HCL 1 GM/D5% WATER 200 ML IV SCH (20:00)
== END 2017-04-21 22:00 | disposition short-term general hospital (02) | DRG 383 ==
LOC: EMS 12:06 → 4E 14:06
PROVIDERS: ADMIT Internal Medicine; ATTEND Internal Medicine
DX: L03.115 Cellulitis of right lower limb (principal); N17.0 Acute kidney failure with tubular necrosis; I11.0 Hypertensive heart disease with heart failure; M00.9 Pyogenic arthritis, unspecified; R78.81 Bacteremia; I95.9 Hypotension, unspecified; I50.9 Heart failure, unspecified; I48.91 Unspecified atrial fibrillation; G43.909 Migraine, unspecified, not intractable, without status migrainosus; E78.00 Pure hypercholesterolemia, unspecified; E78.5 Hyperlipidemia, unspecified; F31.9 Bipolar disorder, unspecified; F90.9 Attention-deficit hyperactivity disorder, unspecified type; Z96.641 Presence of right artificial hip joint; I25.10 Atherosclerotic heart disease of native coronary artery without angina pectoris; J44.9 Chronic obstructive pulmonary disease, unspecified; Z79.01 Long term (current) use of anticoagulants; Z86.711 Personal history of pulmonary embolism; Z95.810 Presence of automatic (implantable) cardiac defibrillator
CPT/HCPCS: 20610; 71046; 72193; 73502; 76770; 84145; 85651; 86140; 87040; 87081; 93005; 96361; 96365; 96368; 96375; 97161; 97530; 99285; J0692; J1170; J2270; J2405; J3370; J7030; J7040; J7050; J7060; J7120

== ENCOUNTER 2017-09-08 10:55 | Emergency (ER) | payer OTHER ==
[~2017-09-08] VITALS: Ht 190.5 cm; Wt 106.8 kg
[~2017-09-08 10:55] MED LIST changes: +AMLO-511 PO; -CARV3 PO; +CARV6 PO; +LOSA25TA21 PO
[2017-09-08] MEDS ORDERED: SODIUM CHLORIDE 0.9% 1,000 ML IV ONE (12:15)
[2017-09-08] MEDS ORDERED: ONDANSETRON HCL 4 MG/2 ML VIAL IVP ONE (12:15)
[2017-09-08] MEDS ORDERED: LOPERAMIDE HCL 2 MG CAPSULE PO ONE (12:15)
[2017-09-08 12:39] LABS: BASOPHILS % (AUTO) 0.6 % (0.0-2.0); EOSINOPHILS % (AUTO) 3.3 % (1.0-6.0); HEMATOCRIT 44.2 % (41-53); HEMOGLOBIN 15.1 g/dL (13.5-17.5); LYMPHOCYTES # (AUTO) 1.6 K/uL (1.0-4.8); LYMPHOCYTES % (AUTO) 27.4 % (22.0-44.0); MEAN CORPUSCULAR HEMOGLOBIN 32.2 pg (26.0-34.0); MEAN CORPUSCULAR HGB CONC 34.1 G/dL (31.0-37.0); MEAN CORPUSCULAR VOLUME 95 fL (80-100); MONOCYTES # (AUTO) 0.6 K/uL (0.1-1.0); MONOCYTES % (AUTO) 11.1 % (2.0-9.0); NEUTROPHILS # (AUTO) 3.4 K/uL (1.8-7.7); NEUTROPHILS % (AUTO) 57.6 % (40.0-70.0); PLATELET COUNT (AUTO) 185 K/uL (150-450); RED BLOOD CELL COUNT(AUTO) 4.68 MIL/uL (4.50-5.90); RED CELL DISTRIBUTION WIDTH 14.6 % (11.5-14.5)
[2017-09-08 13:02] LABS: CALCIUM, TOTAL 8.8 mg/dL (8.8-10.5); CREATININE 1.44 mg/dL (0.60-1.30); POTASSIUM 3.9 mmol/L (3.5-5.1)
[2017-09-08 13:15] LABS: ALBUMIN 3.7 g/dL (3.4-5.0); BILIRUBIN,TOTAL 0.8 mg/dL (0.1-1.0); TOTAL PROTEIN, SERUM 7.3 g/dL (6.4-8.2)
[2017-09-08 14:07] VITALS: BP 115/72
== END 2017-09-08 14:08 | disposition home or self-care (01) ==
LOC: EMS 12:13
DX: K52.9 Noninfective gastroenteritis and colitis, unspecified (principal); E86.0 Dehydration; I48.91 Unspecified atrial fibrillation; F31.9 Bipolar disorder, unspecified; I11.0 Hypertensive heart disease with heart failure; I50.9 Heart failure, unspecified; E78.00 Pure hypercholesterolemia, unspecified; J44.9 Chronic obstructive pulmonary disease, unspecified; G43.909 Migraine, unspecified, not intractable, without status migrainosus; G89.29 Other chronic pain; F12.90 Cannabis use, unspecified, uncomplicated; Z95.0 Presence of cardiac pacemaker
CPT/HCPCS: 36415; 80053; 85025; 93005; 96361; 96374; 99285; J2405; J7030

== ENCOUNTER 2018-05-29 16:44 | Inpatient (IN) | payer OTHER ==
[~2018-05-29] VITALS: Ht 188 cm; Wt 136.6 kg
[~2018-05-29 16:44] MED LIST changes: -LOSA25TA21 PO; +LOSA25TA41 PO
[2018-05-29] MEDS ORDERED: LABETALOL HCL 5 MG/ML 20 ML VIAL IVP ONE ×2 (20:30→22:00)
[2018-05-29] MEDS ORDERED: AmLODIPine BESYLATE 5 MG TABLET PO ONE (20:30)
[2018-05-29] MEDS ORDERED: HYDROCODONE/ACETAMINOPHEN 5-325 MG TABLET PO ONE (20:30)
[2018-05-29] MEDS ORDERED: KETOROLAC TROMETHAMINE 30 MG/ML VIAL IVP ONE (20:30)
[2018-05-29] MEDS ORDERED: LORazepam 2 MG/ML VIAL IVP ONE ×2 (20:30→22:00)
[2018-05-29 20:47] LABS: BASOPHILS % (AUTO) 0.6 % (0.0-2.0); EOSINOPHILS % (AUTO) 0.2 % (1.0-6.0); HEMATOCRIT 47.6 % (41-53); HEMOGLOBIN 16.1 g/dL (13.5-17.5); LYMPHOCYTES # (AUTO) 1.3 K/uL (1.0-4.8); LYMPHOCYTES % (AUTO) 18.4 % (22.0-44.0); MEAN CORPUSCULAR HEMOGLOBIN 33.5 pg (26.0-34.0); MEAN CORPUSCULAR HGB CONC 33.9 G/dL (31.0-37.0); MEAN CORPUSCULAR VOLUME 99 fL (80-100); MONOCYTES # (AUTO) 0.4 K/uL (0.1-1.0); NEUTROPHILS # (AUTO) 5.5 K/uL (1.8-7.7); NEUTROPHILS % (AUTO) 75.8 % (40.0-70.0); PLATELET COUNT (AUTO) 191 K/uL (150-450); RED BLOOD CELL COUNT(AUTO) 4.81 MIL/uL (4.50-5.90); RED CELL DISTRIBUTION WIDTH 13.2 % (11.5-14.5)
[2018-05-29 20:57] LABS: ANION GAP 19 mmol/L (8-16); CALCIUM, TOTAL 9.2 mg/dL (8.8-10.5); CARBON DIOXIDE 18 mmol/L (22-29); CHLORIDE 104 mmol/L (98-107); CREATININE 1.21 mg/dL (0.60-1.30); GLOMERULAR FILTR. RATE CALC > 60 mL/min (>60); GLUCOSE,RANDOM 103 mg/dL (70-110); POTASSIUM 4.1 mmol/L (3.5-5.1); SODIUM SERUM 141 mmol/L (136-145); UREA NITROGEN, BLOOD 20 mg/dL (7-18)
[2018-05-29 21:05] LABS: ALANINE AMINOTRANSFERASE 45 U/L (12-78); ALBUMIN 4.3 g/dL (3.4-5.0); ALKALINE PHOSPHATASE 72 U/L (46-116); ASPARTATE AMINOTRANSFERASE 43 U/L (15-37); TOTAL PROTEIN, SERUM 7.8 g/dL (6.4-8.2)
[2018-05-29 21:20] LABS: DIGOXIN < 0.20 ng/mL (0.90-2.00)
[2018-05-29] MEDS ORDERED: ONDANSETRON HCL 4 MG/2 ML VIAL IVP ONE (21:45)
[2018-05-29] MEDS ORDERED: MORPHINE SULFATE 4 MG/ML SYRINGE IVP ONE (21:45)
[2018-05-29] MEDS ORDERED: PB/HYOSCY/ATR/SCOP/LIDO/MAALOX 55 ML BOTTLE PO ONE (22:15)
[2018-05-29] MEDS ORDERED: CARVEDILOL 3.125 MG TABLET PO ONE (23:15)
[2018-05-30] MEDS ORDERED: HYDROmorphone 2 MG/ML SYRINGE IVP ONE
[2018-05-30] MEDS ORDERED: LORazepam 2 MG/ML VIAL IVP ONE
[2018-05-30] MEDS ORDERED: DILTIAZEM HCL 125 MG in DEXTROSE 5%-WATER 100 ML IV PRN (01:08)
[2018-05-30] MEDS ORDERED: HydrALAZINE HCL 20 MG/ML VIAL IVP ONE (01:15)
[2018-05-30 01:35] LABS: APPEARANCE,URINE CLEAR (CLEAR); GLUCOSE, URINE (UA) NEGATIVE (NEGATIVE); KETONES,URINE 40 mg/dL (NEGATIVE); LEUKOCYTE ESTERASE ,URINE NEGATIVE (NEGATIVE); NITRATE,URINE NEGATIVE (NEGATIVE); OCCULT BLOOD,URINE TRACE (NEGATIVE); PROTEIN,URINE SEE CONFIRM (NEGATIVE); UROBILINOGEN,URINE 0.2 mg/dL (<=1.0)
[2018-05-30 01:39] LABS: AMPHET/METH SCREEN,URINE NEGATIVE (NEGATIVE); BARBITURATE SCREEN, URINE NEGATIVE (NEGATIVE); BENZODIAZEPINES SCREEN,URINE NEGATIVE (NEGATIVE); CANNABINOID SCREEN,URINE NEGATIVE (NEGATIVE); COCAINE SCREEN,URINE NEGATIVE (NEGATIVE); METHADONE SCREEN, URINE NEGATIVE (NEGATIVE); OPIATE SCREEN,URINE POSITIVE (NEGATIVE)
[2018-05-30 01:49] LABS: PHENCYCLIDINE SCREEN,URINE NEGATIVE (NEGATIVE)
[2018-05-30 01:52] LABS: BILIRUBIN,URINE PRELIM. POSITIVE (NEGATIVE)
[2018-05-30 01:53] LABS: SULFOSALICYLIC ACID,URINE 2+ (Negative)
[2018-05-30 01:54] LABS: BACTERIA,URINE Rare /HPF (None Seen); HYALINE CASTS, URINE 0-2 /LPF (None Seen); RBC,URINE 0-2 /HPF (0-2); SQUAMOUS EPITHELIAL CELL,UR Rare /LPF (None Seen); WBC,URINE 0-2 /HPF (0-5)
[2018-05-30 02:09] LABS: THYROID STIMULATING HORMONE 0.76 uIU/mL (0.36-3.74)
[2018-05-30] MEDS ORDERED: DiphenhydrAMINE HCL 25 MG CAPSULE PO ONE (03:15)
[2018-05-30] MEDS ORDERED: DILTIAZEM HCL 125 MG in DEXTROSE 5%-WATER 100 ML IV SCH (06:10)
[2018-05-30] MEDS ORDERED: MORPHINE SULFATE 4 MG/ML SYRINGE IVP ONE (12:45)
[2018-05-30] MEDS ORDERED: CARVEDILOL 3.125 MG TABLET PO ONE (12:45)
[2018-05-30] MEDS ORDERED: AmLODIPine BESYLATE 5 MG TABLET PO ONE (12:45)
[2018-05-30] MEDS ORDERED: LOSARTAN POTASSIUM 25 MG TABLET PO ONE (12:45)
[2018-05-30] MEDS ORDERED: DILTIAZEM HCL 60 MG TABLET PO ONE (12:45)
[2018-05-30 13:28] LABS: BASOPHILS % (AUTO) 0.7 % (0.0-2.0); EOSINOPHILS % (AUTO) 2.4 % (1.0-6.0); HEMOGLOBIN 15.6 g/dL (13.5-17.5); LYMPHOCYTES # (AUTO) 1.7 K/uL (1.0-4.8); LYMPHOCYTES % (AUTO) 30.1 % (22.0-44.0); MEAN CORPUSCULAR HEMOGLOBIN 33.1 pg (26.0-34.0); MEAN CORPUSCULAR HGB CONC 33.9 G/dL (31.0-37.0); MEAN CORPUSCULAR VOLUME 98 fL (80-100); MONOCYTES # (AUTO) 0.5 K/uL (0.1-1.0); MONOCYTES % (AUTO) 8.4 % (2.0-9.0); NEUTROPHILS # (AUTO) 3.2 K/uL (1.8-7.7); NEUTROPHILS % (AUTO) 58.4 % (40.0-70.0); PLATELET COUNT (AUTO) 179 K/uL (150-450); RED BLOOD CELL COUNT(AUTO) 4.71 MIL/uL (4.50-5.90); RED CELL DISTRIBUTION WIDTH 13.5 % (11.5-14.5)
[2018-05-30 13:34] LABS: ANION GAP 10 mmol/L (8-16); CARBON DIOXIDE 28 mmol/L (22-29); CHLORIDE 104 mmol/L (98-107); CREATININE 0.95 mg/dL (0.60-1.30); GLOMERULAR FILTR. RATE CALC > 60 mL/min (>60); GLUCOSE,RANDOM 102 mg/dL (70-110); POTASSIUM 4.1 mmol/L (3.5-5.1); SODIUM SERUM 142 mmol/L (136-145); UREA NITROGEN, BLOOD 21 mg/dL (7-18)
[2018-05-30 13:40] LABS: ALANINE AMINOTRANSFERASE 39 U/L (12-78); ALBUMIN 3.8 g/dL (3.4-5.0); ALKALINE PHOSPHATASE 65 U/L (46-116); ASPARTATE AMINOTRANSFERASE 34 U/L (15-37); BILIRUBIN,TOTAL 1.4 mg/dL (0.1-1.0); TOTAL PROTEIN, SERUM 7.2 g/dL (6.4-8.2)
[2018-05-30] MEDS ORDERED: OxyCODONE HCL/ACETAMINOPHEN 5-325 MG TABLET PO PRN (15:15)
[2018-05-30] MEDS ORDERED: ONDANSETRON HCL 4 MG/2 ML VIAL IVP PRN (15:15)
[2018-05-30] MEDS ORDERED: HYDROCODONE/ACETAMINOPHEN 5-325 MG TABLET PO PRN ×2 (15:15)
[2018-05-30 16:01] VITALS: BP 152/89
[2018-05-30] MEDS: FAMOTIDINE 20 MG TABLET PO SCH (16:04)
[2018-05-30] MEDS: IPRATROPIUM BROMIDE 0.5 MG/2.5 ML NEB SOLUTION NEB SCH (20:00)
[2018-05-30] MEDS: ALBUTEROL SULFATE 2.5 MG/0.5 ML NEB SOLUTION NEB SCH (20:00)
[2018-05-30 20:20] VITALS: BP 152/94
[2018-05-30] MEDS: DOCUSATE SODIUM 100 MG CAPSULE PO SCH (21:00)
[2018-05-30] MEDS: MORPHINE SULFATE 2 MG/ML SYRINGE IVP PRN (21:16)
[2018-05-30] MEDS: DILTIAZEM HCL CD 240 MG ER CAPSULE PO SCH (21:16)
[2018-05-31] VITALS (7 sets, daily range): BP systolic 123–148; BP diastolic 67–103
[2018-05-31] MEDS: MORPHINE SULFATE 2 MG/ML SYRINGE IVP PRN ×4 (01:39→21:40)
[2018-05-31] MEDS: ALBUTEROL SULFATE 2.5 MG/0.5 ML NEB SOLUTION NEB SCH ×4 (02:05→19:32)
[2018-05-31] MEDS: IPRATROPIUM BROMIDE 0.5 MG/2.5 ML NEB SOLUTION NEB SCH ×4 (02:05→19:31)
[2018-05-31] MEDS: LOSARTAN POTASSIUM 50 MG TABLET PO SCH (07:58)
[2018-05-31] MEDS: DILTIAZEM HCL CD 240 MG ER CAPSULE PO SCH (07:58)
[2018-05-31] MEDS: DOCUSATE SODIUM 100 MG CAPSULE PO SCH ×2 (08:00→20:39)
[2018-05-31] MEDS: FAMOTIDINE 20 MG TABLET PO SCH (08:00)
[2018-05-31 08:43] LABS: BASOPHILS % (AUTO) 0.8 % (0.0-2.0); EOSINOPHILS % (AUTO) 4.5 % (1.0-6.0); HEMATOCRIT 45.2 % (41-53); HEMOGLOBIN 15.3 g/dL (13.5-17.5); LYMPHOCYTES % (AUTO) 35.9 % (22.0-44.0); MEAN CORPUSCULAR HEMOGLOBIN 33.4 pg (26.0-34.0); MEAN CORPUSCULAR HGB CONC 33.7 G/dL (31.0-37.0); MEAN CORPUSCULAR VOLUME 99 fL (80-100); MONOCYTES # (AUTO) 0.4 K/uL (0.1-1.0); MONOCYTES % (AUTO) 6.5 % (2.0-9.0); NEUTROPHILS # (AUTO) 2.9 K/uL (1.8-7.7); NEUTROPHILS % (AUTO) 52.3 % (40.0-70.0); PLATELET COUNT (AUTO) 171 K/uL (150-450); RED BLOOD CELL COUNT(AUTO) 4.57 MIL/uL (4.50-5.90); RED CELL DISTRIBUTION WIDTH 13.1 % (11.5-14.5)
[2018-05-31 09:01] LABS: ALANINE AMINOTRANSFERASE 32 U/L (12-78); ALBUMIN 3.5 g/dL (3.4-5.0); ALKALINE PHOSPHATASE 59 U/L (46-116); ANION GAP 8 mmol/L (8-16); ASPARTATE AMINOTRANSFERASE 32 U/L (15-37); BILIRUBIN,TOTAL 1.2 mg/dL (0.1-1.0); CALCIUM, TOTAL 8.7 mg/dL (8.8-10.5); CARBON DIOXIDE 28 mmol/L (22-29); CHLORIDE 102 mmol/L (98-107); CREATININE 1.04 mg/dL (0.60-1.30); GLOMERULAR FILTR. RATE CALC > 60 mL/min (>60); GLUCOSE,RANDOM 124 mg/dL (70-110); POTASSIUM 3.9 mmol/L (3.5-5.1); SODIUM SERUM 138 mmol/L (136-145); TOTAL PROTEIN, SERUM 6.7 g/dL (6.4-8.2); UREA NITROGEN, BLOOD 18 mg/dL (7-18)
[2018-05-31] MEDS: DABIGATRAN ETEXILATE MESYLATE 75 MG CAPSULE PO SCH (20:39)
[2018-06-01] MEDS: IPRATROPIUM BROMIDE 0.5 MG/2.5 ML NEB SOLUTION NEB SCH ×2 (02:35→08:10)
[2018-06-01] MEDS: ALBUTEROL SULFATE 2.5 MG/0.5 ML NEB SOLUTION NEB SCH ×2 (02:35→08:10)
[2018-06-01 04:39] VITALS: BP 132/83
[2018-06-01] MEDS: MORPHINE SULFATE 2 MG/ML SYRINGE IVP PRN (04:53)
[2018-06-01 07:37] VITALS: BP 113/84
[2018-06-01] MEDS: DABIGATRAN ETEXILATE MESYLATE 75 MG CAPSULE PO SCH (07:54)
[2018-06-01] MEDS: DILTIAZEM HCL CD 240 MG ER CAPSULE PO SCH (07:55)
[2018-06-01] MEDS: DOCUSATE SODIUM 100 MG CAPSULE PO SCH (07:55)
[2018-06-01] MEDS: LOSARTAN POTASSIUM 50 MG TABLET PO SCH (07:57)
[2018-06-01] MEDS: FAMOTIDINE 20 MG TABLET PO SCH (07:57)
[2018-06-01] MEDS ORDERED: DILT240C93 PO (09:52)
[2018-06-01] MEDS ORDERED: LOSA50TA64 PO (09:53)
== END 2018-06-01 11:00 | disposition short-term general hospital (02) | DRG 194 ==
LOC: EMS 16:46 → 5S 05-30 14:54
PROVIDERS: ADMIT Internal Medicine; ATTEND Internal Medicine
DX: I11.0 Hypertensive heart disease with heart failure (principal); E66.01 Morbid (severe) obesity due to excess calories; Z79.01 Long term (current) use of anticoagulants; I48.91 Unspecified atrial fibrillation; J44.1 Chronic obstructive pulmonary disease with (acute) exacerbation; G43.909 Migraine, unspecified, not intractable, without status migrainosus; I50.22 Chronic systolic (congestive) heart failure; E78.00 Pure hypercholesterolemia, unspecified; F41.1 Generalized anxiety disorder; G89.4 Chronic pain syndrome; I16.0 Hypertensive urgency; I25.10 Atherosclerotic heart disease of native coronary artery without angina pectoris; E78.5 Hyperlipidemia, unspecified; F31.9 Bipolar disorder, unspecified; Z96.649 Presence of unspecified artificial hip joint; F90.9 Attention-deficit hyperactivity disorder, unspecified type; Z68.38 Body mass index [BMI] 38.0-38.9, adult; Z95.810 Presence of automatic (implantable) cardiac defibrillator; Z87.891 Personal history of nicotine dependence; Z86.711 Personal history of pulmonary embolism; Z91.19 Patient's noncompliance with other medical treatment and regimen
CPT/HCPCS: 84443; 93005; 93306; 94640; 96365; 96366; 96375; G0378; G0480; J0360; J1170; J1885; J2060; J2270; J2405; J3490; J7060

== ENCOUNTER 2019-04-14 03:00 | Inpatient (IN) | payer OTHER ==
[~2019-04-14] VITALS: Ht 190.5 cm; Wt 132.0 kg
[~2019-04-14 03:00] MED LIST changes: -AMLO-511 PO; +AMLO5TAB9 PO; +DILT240C93 PO; -DILT60 PO; +LOSA-88 PO; -LOSA25TA41 PO
[2019-04-14] MEDS ORDERED: ASPI-1111 PO (03:20)
[2019-04-14] MEDS ORDERED: SPIR25 PO (03:20)
[2019-04-14 04:06] LABS: BASOPHILS % (AUTO) 0.7 % (0.0-2.0); EOSINOPHILS % (AUTO) 3.6 % (1.0-6.0); HEMATOCRIT 44.5 % (41-53); HEMOGLOBIN 15.1 g/dL (13.5-17.5); LYMPHOCYTES # (AUTO) 1.9 K/uL (1.0-4.8); LYMPHOCYTES % (AUTO) 22.7 % (22.0-44.0); MEAN CORPUSCULAR HEMOGLOBIN 33.3 pg (26.0-34.0); MEAN CORPUSCULAR HGB CONC 33.8 G/dL (31.0-37.0); MEAN CORPUSCULAR VOLUME 99 fL (80-100); MONOCYTES # (AUTO) 0.5 K/uL (0.1-1.0); MONOCYTES % (AUTO) 5.4 % (2.0-9.0); NEUTROPHILS # (AUTO) 5.8 K/uL (1.8-7.7); NEUTROPHILS % (AUTO) 67.6 % (40.0-70.0); PLATELET COUNT (AUTO) 175 K/uL (150-450); RED BLOOD CELL COUNT(AUTO) 4.52 MIL/uL (4.50-5.90)
[2019-04-14 04:17] LABS: CALCIUM, TOTAL 7.6 mg/dL (8.8-10.5); CREATININE 1.25 mg/dL (0.60-1.30); POTASSIUM 3.5 mmol/L (3.5-5.1)
[2019-04-14 04:19] LABS: INR 1.3 (0.9-1.1); PROTHROMBIN TIME 12.8 SEC (9.4-11.6)
[2019-04-14] MEDS ORDERED: SODIUM CHLORIDE 0.9% 1,000 ML IV ONE ×2 (04:30)
[2019-04-14 04:42] LABS: BILIRUBIN,TOTAL 1.3 mg/dL (0.1-1.0); TOTAL PROTEIN, SERUM 5.7 g/dL (6.4-8.2)
[2019-04-14] MEDS ORDERED: ONDANSETRON HCL 4 MG/2 ML VIAL IVP PRN ×2 (08:15→13:45)
[2019-04-14] MEDS ORDERED: 0.9% SODIUM CHLORIDE 10 ML SYRINGE IVP PRN ×2 (08:15→13:45)
[2019-04-14] MEDS ORDERED: ACETAMINOPHEN 325 MG TABLET PO PRN ×2 (08:15→13:45)
[2019-04-14 09:00] VITALS: BP 143/87
[2019-04-14 11:44] VITALS: BP 127/73
[2019-04-14] MEDS ORDERED: LOSARTAN POTASSIUM 50 MG TABLET PO SCH ×2 (13:15→13:45)
[2019-04-14] MEDS ORDERED: AmLODIPine BESYLATE 5 MG TABLET PO SCH ×2 (13:15→13:45)
[2019-04-14] MEDS: SPIRONOLACTONE 25 MG TABLET PO SCH (13:34)
[2019-04-14] MEDS: ASPIRIN 81 MG CHEWABLE TABLET PO SCH (13:34)
[2019-04-14] MEDS: CARVEDILOL 6.25 MG TABLET PO SCH (13:34)
[2019-04-14] MEDS ORDERED: CARVEDILOL 6.25 MG TABLET PO SCH (13:45)
[2019-04-14] MEDS ORDERED: DULoxetine HCL 60 MG CAPSULE PO SCH (13:45)
[2019-04-14] MEDS ORDERED: DABIGATRAN ETEXILATE MESYLATE 75 MG CAPSULE PO SCH (13:45)
[2019-04-14] MEDS ORDERED: SPIRONOLACTONE 25 MG TABLET PO SCH (13:45)
[2019-04-14] MEDS ORDERED: DOCUSATE SODIUM 100 MG CAPSULE PO SCH (13:45)
[2019-04-14] MEDS ORDERED: ZOLPIDEM TARTRATE 5 MG TABLET PO PRN (13:45)
[2019-04-14] MEDS: ACETAMINOPHEN 325 MG TABLET PO PRN ×2 (14:44→23:41)
[2019-04-14] MEDS: DABIGATRAN ETEXILATE MESYLATE 75 MG CAPSULE PO SCH ×2 (14:44→20:28)
[2019-04-14] MEDS: PANTOPRAZOLE SODIUM 40 MG DR TABLET PO SCH (14:44)
[2019-04-14 16:26] VITALS: BP 116/72
[2019-04-14 20:09] VITALS: BP 112/74
[2019-04-14] MEDS: DULoxetine HCL 60 MG CAPSULE PO SCH (20:28)
[2019-04-14 23:40] VITALS: BP 153/75
[2019-04-15] VITALS (7 sets, daily range): BP systolic 130–142; BP diastolic 78–106
[2019-04-15 07:19] LABS: BASOPHILS % (AUTO) 0.5 % (0.0-2.0); EOSINOPHILS % (AUTO) 5.4 % (1.0-6.0); HEMATOCRIT 39.1 % (41-53); HEMOGLOBIN 13.3 g/dL (13.5-17.5); LYMPHOCYTES # (AUTO) 2.4 K/uL (1.0-4.8); LYMPHOCYTES % (AUTO) 32.8 % (22.0-44.0); MEAN CORPUSCULAR HEMOGLOBIN 33.4 pg (26.0-34.0); MEAN CORPUSCULAR VOLUME 98 fL (80-100); MONOCYTES # (AUTO) 0.5 K/uL (0.1-1.0); MONOCYTES % (AUTO) 7.1 % (2.0-9.0); NEUTROPHILS % (AUTO) 54.2 % (40.0-70.0); PLATELET COUNT (AUTO) 168 K/uL (150-450); RED BLOOD CELL COUNT(AUTO) 3.97 MIL/uL (4.50-5.90); RED CELL DISTRIBUTION WIDTH 17.6 % (11.5-14.5)
[2019-04-15 07:35] LABS: ANION GAP 7 mmol/L (8-16); CARBON DIOXIDE 31 mmol/L (22-29); CHLORIDE 100 mmol/L (98-107); CREATININE 1.07 mg/dL (0.60-1.30); GLOMERULAR FILTR. RATE CALC > 60 mL/min (>60); GLUCOSE,RANDOM 84 mg/dL (70-110); POTASSIUM 3.9 mmol/L (3.5-5.1); SODIUM SERUM 138 mmol/L (136-145); UREA NITROGEN, BLOOD 24 mg/dL (7-18)
[2019-04-15 08:01] LABS: APPEARANCE,URINE CLEAR (CLEAR); BILIRUBIN,URINE NEGATIVE (NEGATIVE); GLUCOSE, URINE (UA) NEGATIVE (NEGATIVE); KETONES,URINE NEGATIVE (NEGATIVE); LEUKOCYTE ESTERASE ,URINE NEGATIVE (NEGATIVE); NITRATE,URINE NEGATIVE (NEGATIVE); OCCULT BLOOD,URINE NEGATIVE (NEGATIVE); PH,URINE 5.5 (5.0-8.0); PROTEIN,URINE NEGATIVE (NEGATIVE); UROBILINOGEN,URINE 0.2 mg/dL (<=1.0)
[2019-04-15] MEDS: LOSARTAN POTASSIUM 50 MG TABLET PO SCH (09:00)
[2019-04-15] MEDS ORDERED: ASPIRIN 81 MG EC TABLET PO SCH (09:00)
[2019-04-15] MEDS: SPIRONOLACTONE 25 MG TABLET PO SCH (09:21)
[2019-04-15] MEDS: CARVEDILOL 6.25 MG TABLET PO SCH (09:22)
[2019-04-15] MEDS: ASPIRIN 81 MG CHEWABLE TABLET PO SCH (09:22)
[2019-04-15] MEDS: DULoxetine HCL 60 MG CAPSULE PO SCH ×2 (09:23→20:10)
[2019-04-15] MEDS: DABIGATRAN ETEXILATE MESYLATE 75 MG CAPSULE PO SCH ×2 (09:24→20:10)
[2019-04-15] MEDS: PANTOPRAZOLE SODIUM 40 MG DR TABLET PO SCH (09:24)
[2019-04-15] MEDS: ACETAMINOPHEN 325 MG TABLET PO PRN (09:25)
[2019-04-16] VITALS (7 sets, daily range): BP systolic 118–144; BP diastolic 73–99
[2019-04-16 06:37] LABS: BASOPHILS % (AUTO) 0.7 % (0.0-2.0); EOSINOPHILS % (AUTO) 6.4 % (1.0-6.0); HEMATOCRIT 38.2 % (41-53); HEMOGLOBIN 13.2 g/dL (13.5-17.5); LYMPHOCYTES # (AUTO) 1.7 K/uL (1.0-4.8); LYMPHOCYTES % (AUTO) 29.4 % (22.0-44.0); MEAN CORPUSCULAR HEMOGLOBIN 34.1 pg (26.0-34.0); MEAN CORPUSCULAR HGB CONC 34.5 G/dL (31.0-37.0); MEAN CORPUSCULAR VOLUME 99 fL (80-100); MONOCYTES # (AUTO) 0.5 K/uL (0.1-1.0); MONOCYTES % (AUTO) 8.8 % (2.0-9.0); NEUTROPHILS # (AUTO) 3.2 K/uL (1.8-7.7); NEUTROPHILS % (AUTO) 54.7 % (40.0-70.0); PLATELET COUNT (AUTO) 142 K/uL (150-450); RED BLOOD CELL COUNT(AUTO) 3.87 MIL/uL (4.50-5.90); RED CELL DISTRIBUTION WIDTH 17.2 % (11.5-14.5)
[2019-04-16 06:48] LABS: ANION GAP 7 mmol/L (8-16); CALCIUM, TOTAL 8.9 mg/dL (8.8-10.5); CARBON DIOXIDE 29 mmol/L (22-29); CHLORIDE 102 mmol/L (98-107); CREATININE 0.89 mg/dL (0.60-1.30); GLOMERULAR FILTR. RATE CALC > 60 mL/min (>60); GLUCOSE,RANDOM 94 mg/dL (70-110); POTASSIUM 4.2 mmol/L (3.5-5.1); SODIUM SERUM 138 mmol/L (136-145); UREA NITROGEN, BLOOD 20 mg/dL (7-18)
[2019-04-16] MEDS: LOSARTAN POTASSIUM 50 MG TABLET PO SCH (09:00)
[2019-04-16] MEDS: CARVEDILOL 6.25 MG TABLET PO SCH (09:04)
[2019-04-16] MEDS: DABIGATRAN ETEXILATE MESYLATE 75 MG CAPSULE PO SCH ×2 (09:04→21:05)
[2019-04-16] MEDS: DULoxetine HCL 60 MG CAPSULE PO SCH ×2 (09:05→21:05)
[2019-04-16] MEDS: ASPIRIN 81 MG CHEWABLE TABLET PO SCH (09:05)
[2019-04-16] MEDS: PANTOPRAZOLE SODIUM 40 MG DR TABLET PO SCH (09:05)
[2019-04-16] MEDS: SPIRONOLACTONE 25 MG TABLET PO SCH (09:05)
[2019-04-16] MEDS ORDERED: POTASSIUM CHLORIDE 20 MEQ ER TABLET PO PRN (12:15)
[2019-04-16] MEDS ORDERED: POTASSIUM CHL 10 MEQ/WATER 50 ML IV PRN (12:15)
[2019-04-16] MEDS ORDERED: MAGNESIUM SULFATE 4 GM/WATER 100 ML IV PRN (12:15)
[2019-04-16] MEDS ORDERED: TAMSULOSIN HCL 0.4 MG CAPSULE PO SCH (12:15)
[2019-04-16] MEDS ORDERED: MAGNESIUM OXIDE 400 MG TABLET PO PRN (12:15)
[2019-04-16] MEDS ORDERED: MAGNESIUM SULFATE 2 GM/WATER 50 ML IV PRN (12:15)
[2019-04-16 12:21] LABS: ALBUMIN 3.2 g/dL (3.4-5.0)
[2019-04-17 05:18] VITALS: BP 154/94
[2019-04-17 07:12] LABS: BASOPHILS % (AUTO) 0.8 % (0.0-2.0); EOSINOPHILS % (AUTO) 4.3 % (1.0-6.0); HEMATOCRIT 37.8 % (41-53); HEMOGLOBIN 12.9 g/dL (13.5-17.5); LYMPHOCYTES # (AUTO) 1.3 K/uL (1.0-4.8); LYMPHOCYTES % (AUTO) 21.1 % (22.0-44.0); MEAN CORPUSCULAR HEMOGLOBIN 33.7 pg (26.0-34.0); MEAN CORPUSCULAR VOLUME 99 fL (80-100); MONOCYTES # (AUTO) 0.5 K/uL (0.1-1.0); MONOCYTES % (AUTO) 7.8 % (2.0-9.0); NEUTROPHILS # (AUTO) 4.2 K/uL (1.8-7.7); PLATELET COUNT (AUTO) 142 K/uL (150-450); RED BLOOD CELL COUNT(AUTO) 3.82 MIL/uL (4.50-5.90); RED CELL DISTRIBUTION WIDTH 16.8 % (11.5-14.5)
[2019-04-17 07:26] LABS: ALANINE AMINOTRANSFERASE 38 U/L (12-78); ALBUMIN 3.5 g/dL (3.4-5.0); ALKALINE PHOSPHATASE 58 U/L (46-116); ANION GAP 7 mmol/L (8-16); ASPARTATE AMINOTRANSFERASE 27 U/L (15-37); BILIRUBIN,TOTAL 0.8 mg/dL (0.1-1.0); CALCIUM, TOTAL 8.5 mg/dL (8.8-10.5); CARBON DIOXIDE 29 mmol/L (22-29); CHLORIDE 101 mmol/L (98-107); CREATININE 1.08 mg/dL (0.60-1.30); GLOMERULAR FILTR. RATE CALC > 60 mL/min (>60); GLUCOSE,RANDOM 85 mg/dL (70-110); POTASSIUM 4.2 mmol/L (3.5-5.1); SODIUM SERUM 137 mmol/L (136-145); TOTAL PROTEIN, SERUM 6.2 g/dL (6.4-8.2)
[2019-04-17 07:34] LABS: UREA NITROGEN, BLOOD 21 mg/dL (7-18)
[2019-04-17 08:25] VITALS: BP 134/75
[2019-04-17] MEDS: CARVEDILOL 6.25 MG TABLET PO SCH (08:45)
[2019-04-17] MEDS: DABIGATRAN ETEXILATE MESYLATE 75 MG CAPSULE PO SCH (08:45)
[2019-04-17] MEDS: PANTOPRAZOLE SODIUM 40 MG DR TABLET PO SCH (08:45)
[2019-04-17] MEDS: DULoxetine HCL 60 MG CAPSULE PO SCH (08:45)
[2019-04-17] MEDS: ASPIRIN 81 MG CHEWABLE TABLET PO SCH (08:46)
[2019-04-17] MEDS ORDERED: SODIUM CHLORIDE 0.9% 250 ML IV ONE (10:38)
[2019-04-17 11:23] VITALS: BP 130/89
== END 2019-04-17 15:15 | disposition home or self-care (01) | DRG 48 ==
LOC: EMS 03:02 → 5S 05:30
PROVIDERS: ADMIT Hospitalist; ATTEND Hospitalist
DX: G90.8 Other disorders of autonomic nervous system (principal); I50.21 Acute systolic (congestive) heart failure; I95.9 Hypotension, unspecified; I42.8 Other cardiomyopathies; E66.01 Morbid (severe) obesity due to excess calories; I48.20 Chronic atrial fibrillation, unspecified; I11.0 Hypertensive heart disease with heart failure; R55 Syncope and collapse; G43.909 Migraine, unspecified, not intractable, without status migrainosus; J44.9 Chronic obstructive pulmonary disease, unspecified; E78.00 Pure hypercholesterolemia, unspecified; K52.9 Noninfective gastroenteritis and colitis, unspecified; F31.9 Bipolar disorder, unspecified; G89.29 Other chronic pain; I44.7 Left bundle-branch block, unspecified; I49.9 Cardiac arrhythmia, unspecified; F12.90 Cannabis use, unspecified, uncomplicated; F90.9 Attention-deficit hyperactivity disorder, unspecified type; F10.20 Alcohol dependence, uncomplicated; Z95.0 Presence of cardiac pacemaker; Z72.89 Other problems related to lifestyle; Z68.36 Body mass index [BMI] 36.0-36.9, adult; Z79.899 Other long term (current) drug therapy; Z98.890 Other specified postprocedural states; Z86.711 Personal history of pulmonary embolism; T46.5X5A Adverse effect of other antihypertensive drugs, initial encounter
CPT/HCPCS: 70450; 74019; 83735; 93005; 93306; 97116; 97162; J3475; J7050

== ENCOUNTER 2019-05-07 03:43 | Inpatient (IN) | payer OTHER ==
[~2019-05-07] VITALS: Ht 188 cm; Wt 142.2 kg
[~2019-05-07 03:43] MED LIST changes: -AMLO5TAB9 PO; -ARIP10TA8 PO; +ASPI-1111 PO; -DILT240C93 PO; -DULO60CA44 PO; -LOSA-88 PO
[2019-05-07] MEDS ORDERED: CLOPIDOGREL BISULFATE 75 MG TABLET PO ONE (04:15)
[2019-05-07] MEDS ORDERED: CARVEDILOL 3.125 MG TABLET PO ONE (04:15)
[2019-05-07] MEDS ORDERED: ASPIRIN 81 MG CHEWABLE TABLET PO ONE (04:15)
[2019-05-07 04:24] LABS: BASOPHILS % (AUTO) 0.9 % (0.0-2.0); EOSINOPHILS % (AUTO) 3.6 % (1.0-6.0); HEMATOCRIT 40.4 % (41-53); HEMOGLOBIN 13.5 g/dL (13.5-17.5); LYMPHOCYTES # (AUTO) 3.1 K/uL (1.0-4.8); LYMPHOCYTES % (AUTO) 49.4 % (22.0-44.0); MEAN CORPUSCULAR HGB CONC 33.4 G/dL (31.0-37.0); MEAN CORPUSCULAR VOLUME 99 fL (80-100); MONOCYTES # (AUTO) 0.5 K/uL (0.1-1.0); MONOCYTES % (AUTO) 7.7 % (2.0-9.0); NEUTROPHILS # (AUTO) 2.4 K/uL (1.8-7.7); NEUTROPHILS % (AUTO) 38.4 % (40.0-70.0); PLATELET COUNT (AUTO) 225 K/uL (150-450); RED BLOOD CELL COUNT(AUTO) 4.07 MIL/uL (4.50-5.90); RED CELL DISTRIBUTION WIDTH 15.4 % (11.5-14.5)
[2019-05-07 04:33] LABS: ANION GAP 9 mmol/L (8-16); CALCIUM, TOTAL 8.7 mg/dL (8.8-10.5); CARBON DIOXIDE 28 mmol/L (22-29); CHLORIDE 107 mmol/L (98-107); CREATININE 1.08 mg/dL (0.60-1.30); GLOMERULAR FILTR. RATE CALC > 60 mL/min (>60); GLUCOSE,RANDOM 119 mg/dL (70-110); SODIUM SERUM 144 mmol/L (136-145); UREA NITROGEN, BLOOD 21 mg/dL (7-18)
[2019-05-07 04:37] LABS: PROTHROMBIN TIME 10.5 SEC (9.4-11.6)
[2019-05-07 04:43] LABS: B-TYPE NATRIURETIC PEPTIDE 205 pg/mL (0-100)
[2019-05-07 04:58] LABS: ALANINE AMINOTRANSFERASE 34 U/L (12-78); ALBUMIN 3.5 g/dL (3.4-5.0); ALKALINE PHOSPHATASE 88 U/L (46-116); ASPARTATE AMINOTRANSFERASE 31 U/L (15-37); BILIRUBIN,TOTAL 0.2 mg/dL (0.1-1.0); CREATINE KINASE, TOTAL ONLY 84 U/L (39-308)
[2019-05-07] MEDS ORDERED: LORazepam 1 MG TABLET PO ONE (05:00)
[2019-05-07] MEDS ORDERED: HALOPERIDOL LACTATE 5 MG/ML VIAL IM ONE (05:15)
[2019-05-07] MEDS ORDERED: FUROSEMIDE 20 MG TABLET PO ONE (05:30)
[2019-05-07] MEDS ORDERED: LORazepam 2 MG/ML VIAL IM ONE ×2 (05:45→06:00)
[2019-05-07] MEDS ORDERED: DiphenhydrAMINE HCL 50 MG/ML VIAL IM ONE (05:45)
[2019-05-07] MEDS ORDERED: MAGNESIUM SULFATE 2 GM, MVI, ADULT NO.1 WITH VIT K 10 ML, THIAMINE HCL 100 MG, FOLIC AC... IV ONE ×5 (07:00)
[2019-05-07] MEDS ORDERED: ACETAMINOPHEN 325 MG TABLET PO PRN (07:45)
[2019-05-07] MEDS: CARVEDILOL 6.25 MG TABLET PO SCH ×2 (08:59→21:43)
[2019-05-07] MEDS: MULTIVITAMINS WITH MINERALS, THERAPEUTIC TABLET PO SCH (08:59)
[2019-05-07] MEDS: DABIGATRAN ETEXILATE MESYLATE 75 MG CAPSULE PO SCH ×2 (08:59→21:43)
[2019-05-07] MEDS: DOCUSATE SODIUM 100 MG CAPSULE PO SCH ×2 (09:01→21:43)
[2019-05-07] MEDS: FAMOTIDINE 20 MG TABLET PO SCH (09:01)
[2019-05-07 11:01] VITALS: BP 117/73
[2019-05-07 15:19] VITALS: BP 142/88
[2019-05-07 20:09] VITALS: BP 111/89
[2019-05-07] MEDS: GABAPENTIN 300 MG CAPSULE PO SCH (21:43)
[2019-05-07] MEDS ORDERED: 0.9% SODIUM CHLORIDE 5 ML NEB SOLUTION NEB ONE (22:45)
[2019-05-07] MEDS: ALBUTEROL SULFATE 2.5 MG/0.5 ML NEB SOLUTION NEB PRN (22:47)
[2019-05-07] MEDS: LORazepam 2 MG/ML VIAL IVP PRN (23:06)
[2019-05-07] MEDS ORDERED: FUROSEMIDE 20 MG/2 ML VIAL IVP ONE (23:45)
[2019-05-07 23:49] VITALS: BP 100/60
[2019-05-08] MEDS ORDERED: IPRATROPIUM BROMIDE 0.5 MG/2.5 ML NEB SOLUTION NEB PRN (03:00)
[2019-05-08] MEDS ORDERED: IPRATROPIUM BROMIDE 0.5 MG/2.5 ML NEB SOLUTION NEB SCH (03:00)
[2019-05-08] MEDS ORDERED: ALBUTEROL SULFATE 2.5 MG/0.5 ML NEB SOLUTION NEB PRN (03:00)
[2019-05-08] MEDS ORDERED: ALBUTEROL SULFATE 2.5 MG/0.5 ML NEB SOLUTION NEB SCH (03:00)
[2019-05-08 05:43] VITALS: BP 155/116
[2019-05-08 06:52] VITALS: BP 149/102
[2019-05-08 07:16] VITALS: BP 129/86
[2019-05-08] MEDS: LURASIDONE HCL 40 MG TABLET PO SCH (08:38)
[2019-05-08] MEDS: DABIGATRAN ETEXILATE MESYLATE 75 MG CAPSULE PO SCH ×2 (08:39→20:31)
[2019-05-08] MEDS: MULTIVITAMINS WITH MINERALS, THERAPEUTIC TABLET PO SCH (08:39)
[2019-05-08] MEDS: DULoxetine HCL 20 MG CAPSULE PO SCH (08:39)
[2019-05-08] MEDS: DOCUSATE SODIUM 100 MG CAPSULE PO SCH ×2 (08:39→20:31)
[2019-05-08] MEDS: FAMOTIDINE 20 MG TABLET PO SCH (08:39)
[2019-05-08] MEDS: GABAPENTIN 300 MG CAPSULE PO SCH ×4 (08:39→20:31)
[2019-05-08] MEDS ORDERED: CARVEDILOL 12.5 MG TABLET PO SCH (09:00)
[2019-05-08] MEDS: VALSARTAN 40 MG TABLET PO SCH ×2 (09:54→20:31)
[2019-05-08 11:51] VITALS: BP 150/88
[2019-05-08] MEDS: MAGNESIUM OXIDE 400 MG TABLET PO PRN ×2 (14:39→22:03)
[2019-05-08] MEDS ORDERED: MAGNESIUM SULFATE 4 GM/WATER 100 ML IV PRN (14:45)
[2019-05-08] MEDS ORDERED: MAGNESIUM SULFATE 2 GM/WATER 50 ML IV PRN (14:45)
[2019-05-08 16:45] VITALS: BP 136/82
[2019-05-08 19:54] VITALS: BP 149/106
[2019-05-08] MEDS: CARVEDILOL 25 MG TABLET PO SCH (20:32)
[2019-05-08] MEDS: ALBUTEROL SULFATE 2.5 MG/0.5 ML NEB SOLUTION NEB PRN (20:36)
[2019-05-09] VITALS (7 sets, daily range): BP systolic 111–144; BP diastolic 76–102
[2019-05-09] MEDS: MAGNESIUM OXIDE 400 MG TABLET PO PRN (00:44)
[2019-05-09 05:43] LABS: BASOPHILS % (AUTO) 1.4 % (0.0-2.0); EOSINOPHILS % (AUTO) 6.9 % (1.0-6.0); HEMATOCRIT 37.2 % (41-53); HEMOGLOBIN 12.3 g/dL (13.5-17.5); LYMPHOCYTES # (AUTO) 2.3 K/uL (1.0-4.8); LYMPHOCYTES % (AUTO) 40.8 % (22.0-44.0); MEAN CORPUSCULAR HEMOGLOBIN 32.9 pg (26.0-34.0); MEAN CORPUSCULAR VOLUME 100 fL (80-100); MONOCYTES # (AUTO) 0.5 K/uL (0.1-1.0); NEUTROPHILS # (AUTO) 2.4 K/uL (1.8-7.7); NEUTROPHILS % (AUTO) 41.9 % (40.0-70.0); PLATELET COUNT (AUTO) 171 K/uL (150-450); RED BLOOD CELL COUNT(AUTO) 3.74 MIL/uL (4.50-5.90); RED CELL DISTRIBUTION WIDTH 15.3 % (11.5-14.5)
[2019-05-09 06:00] LABS: ALBUMIN 2.7 g/dL (3.4-5.0); BILIRUBIN,TOTAL 0.7 mg/dL (0.1-1.0); CALCIUM, TOTAL 8.1 mg/dL (8.8-10.5); CREATININE 1.22 mg/dL (0.60-1.30); MAGNESIUM 1.8 mg/dL (1.80-2.40); POTASSIUM 4.4 mmol/L (3.5-5.1); TOTAL PROTEIN, SERUM 5.8 g/dL (6.4-8.2)
[2019-05-09] MEDS: LURASIDONE HCL 40 MG TABLET PO SCH (08:16)
[2019-05-09] MEDS: DOCUSATE SODIUM 100 MG CAPSULE PO SCH ×2 (08:17→20:22)
[2019-05-09] MEDS: CARVEDILOL 25 MG TABLET PO SCH ×2 (08:18→20:20)
[2019-05-09] MEDS: VALSARTAN 40 MG TABLET PO SCH ×2 (08:18→20:20)
[2019-05-09] MEDS: DULoxetine HCL 20 MG CAPSULE PO SCH (08:18)
[2019-05-09] MEDS: FAMOTIDINE 20 MG TABLET PO SCH (08:19)
[2019-05-09] MEDS: GABAPENTIN 300 MG CAPSULE PO SCH ×4 (08:19→20:21)
[2019-05-09] MEDS: DABIGATRAN ETEXILATE MESYLATE 75 MG CAPSULE PO SCH ×2 (08:19→20:21)
[2019-05-09] MEDS: MULTIVITAMINS WITH MINERALS, THERAPEUTIC TABLET PO SCH (08:20)
[2019-05-09] MEDS: IPRATROPIUM BROMIDE 0.5 MG/2.5 ML NEB SOLUTION NEB SCH ×3 (15:25→22:53)
[2019-05-09] MEDS: ALBUTEROL SULFATE 2.5 MG/0.5 ML NEB SOLUTION NEB SCH ×3 (15:25→22:53)
[2019-05-09] MEDS: LORazepam 2 MG/ML VIAL IVP PRN (23:27)
[2019-05-10 00:05] VITALS: BP 102/54
[2019-05-10] MEDS: ALBUTEROL SULFATE 2.5 MG/0.5 ML NEB SOLUTION NEB SCH ×6 (02:13→23:44)
[2019-05-10] MEDS: IPRATROPIUM BROMIDE 0.5 MG/2.5 ML NEB SOLUTION NEB SCH ×6 (02:13→23:43)
[2019-05-10 05:17] VITALS: BP 128/79
[2019-05-10 06:57] LABS: AMPHET/METH SCREEN,URINE NEGATIVE (NEGATIVE); BARBITURATE SCREEN, URINE NEGATIVE (NEGATIVE); BENZODIAZEPINES SCREEN,URINE NEGATIVE (NEGATIVE); CANNABINOID SCREEN,URINE NEGATIVE (NEGATIVE); COCAINE SCREEN,URINE NEGATIVE (NEGATIVE); METHADONE SCREEN, URINE NEGATIVE (NEGATIVE); OPIATE SCREEN,URINE NEGATIVE (NEGATIVE)
[2019-05-10 07:00] VITALS: BP 122/66
[2019-05-10 07:10] LABS: APPEARANCE,URINE CLEAR (CLEAR); BILIRUBIN,URINE NEGATIVE (NEGATIVE); GLUCOSE, URINE (UA) NEGATIVE (NEGATIVE); KETONES,URINE NEGATIVE (NEGATIVE); LEUKOCYTE ESTERASE ,URINE NEGATIVE (NEGATIVE); NITRATE,URINE NEGATIVE (NEGATIVE); OCCULT BLOOD,URINE NEGATIVE (NEGATIVE); PH,URINE 5.5 (5.0-8.0); PROTEIN,URINE NEGATIVE (NEGATIVE); UROBILINOGEN,URINE 0.2 mg/dL (<=1.0)
[2019-05-10 07:12] LABS: PHENCYCLIDINE SCREEN,URINE NEGATIVE (NEGATIVE)
[2019-05-10 07:51] LABS: EOSINOPHILS % (AUTO) 5.9 % (1.0-6.0); HEMATOCRIT 38.8 % (41-53); HEMOGLOBIN 13.1 g/dL (13.5-17.5); LYMPHOCYTES # (AUTO) 1.9 K/uL (1.0-4.8); LYMPHOCYTES % (AUTO) 42.3 % (22.0-44.0); MEAN CORPUSCULAR HEMOGLOBIN 33.5 pg (26.0-34.0); MEAN CORPUSCULAR HGB CONC 33.9 G/dL (31.0-37.0); MEAN CORPUSCULAR VOLUME 99 fL (80-100); MONOCYTES # (AUTO) 0.3 K/uL (0.1-1.0); MONOCYTES % (AUTO) 6.7 % (2.0-9.0); NEUTROPHILS % (AUTO) 44.1 % (40.0-70.0); PLATELET COUNT (AUTO) 149 K/uL (150-450); RED BLOOD CELL COUNT(AUTO) 3.93 MIL/uL (4.50-5.90); RED CELL DISTRIBUTION WIDTH 15.1 % (11.5-14.5)
[2019-05-10 08:01] LABS: ANION GAP 8 mmol/L (8-16); CALCIUM, TOTAL 8.5 mg/dL (8.8-10.5); CARBON DIOXIDE 27 mmol/L (22-29); CHLORIDE 105 mmol/L (98-107); CREATININE 1.16 mg/dL (0.60-1.30); GLOMERULAR FILTR. RATE CALC > 60 mL/min (>60); GLUCOSE,RANDOM 94 mg/dL (70-110); POTASSIUM 4.8 mmol/L (3.5-5.1); SODIUM SERUM 140 mmol/L (136-145); UREA NITROGEN, BLOOD 28 mg/dL (7-18)
[2019-05-10] MEDS: LURASIDONE HCL 40 MG TABLET PO SCH (09:21)
[2019-05-10] MEDS: CARVEDILOL 25 MG TABLET PO SCH ×2 (09:21→21:21)
[2019-05-10] MEDS: DABIGATRAN ETEXILATE MESYLATE 75 MG CAPSULE PO SCH ×2 (09:21→21:22)
[2019-05-10] MEDS: MULTIVITAMINS WITH MINERALS, THERAPEUTIC TABLET PO SCH (09:21)
[2019-05-10] MEDS: DULoxetine HCL 20 MG CAPSULE PO SCH (09:21)
[2019-05-10] MEDS: FAMOTIDINE 20 MG TABLET PO SCH (09:21)
[2019-05-10] MEDS: DOCUSATE SODIUM 100 MG CAPSULE PO SCH ×2 (09:21→21:21)
[2019-05-10] MEDS: GABAPENTIN 300 MG CAPSULE PO SCH ×4 (09:21→21:22)
[2019-05-10] MEDS: VALSARTAN 40 MG TABLET PO SCH ×2 (09:21→21:22)
[2019-05-10 11:26] VITALS: BP 126/72
[2019-05-10 14:57] VITALS: BP 128/78
[2019-05-10 19:33] VITALS: BP 129/87
[2019-05-10] MEDS: LORazepam 2 MG/ML VIAL IVP PRN (21:21)
[2019-05-11] VITALS (7 sets, daily range): BP systolic 120–136; BP diastolic 78–99
[2019-05-11] MEDS: ALBUTEROL SULFATE 2.5 MG/0.5 ML NEB SOLUTION NEB SCH ×6 (03:11→22:56)
[2019-05-11] MEDS: IPRATROPIUM BROMIDE 0.5 MG/2.5 ML NEB SOLUTION NEB SCH ×6 (03:11→22:55)
[2019-05-11] MEDS: LORazepam 2 MG/ML VIAL IVP PRN ×2 (03:44→20:35)
[2019-05-11 06:47] LABS: BASOPHILS % (AUTO) 0.7 % (0.0-2.0); EOSINOPHILS % (AUTO) 6.8 % (1.0-6.0); HEMATOCRIT 36.6 % (41-53); HEMOGLOBIN 12.1 g/dL (13.5-17.5); LYMPHOCYTES # (AUTO) 1.6 K/uL (1.0-4.8); LYMPHOCYTES % (AUTO) 34.1 % (22.0-44.0); MEAN CORPUSCULAR HEMOGLOBIN 32.9 pg (26.0-34.0); MEAN CORPUSCULAR HGB CONC 32.9 G/dL (31.0-37.0); MEAN CORPUSCULAR VOLUME 100 fL (80-100); MONOCYTES # (AUTO) 0.4 K/uL (0.1-1.0); MONOCYTES % (AUTO) 7.5 % (2.0-9.0); NEUTROPHILS # (AUTO) 2.4 K/uL (1.8-7.7); NEUTROPHILS % (AUTO) 50.9 % (40.0-70.0); PLATELET COUNT (AUTO) 140 K/uL (150-450); RED BLOOD CELL COUNT(AUTO) 3.67 MIL/uL (4.50-5.90); RED CELL DISTRIBUTION WIDTH 15.2 % (11.5-14.5)
[2019-05-11 07:13] LABS: ALANINE AMINOTRANSFERASE 36 U/L (12-78); ALBUMIN 2.9 g/dL (3.4-5.0); ALKALINE PHOSPHATASE 69 U/L (46-116); ANION GAP 5 mmol/L (8-16); ASPARTATE AMINOTRANSFERASE 26 U/L (15-37); BILIRUBIN,TOTAL 0.4 mg/dL (0.1-1.0); CALCIUM, TOTAL 8.3 mg/dL (8.8-10.5); CARBON DIOXIDE 30 mmol/L (22-29); CHLORIDE 104 mmol/L (98-107); CREATININE 1.15 mg/dL (0.60-1.30); GLOMERULAR FILTR. RATE CALC > 60 mL/min (>60); GLUCOSE,RANDOM 93 mg/dL (70-110); POTASSIUM 4.2 mmol/L (3.5-5.1); SODIUM SERUM 139 mmol/L (136-145); TOTAL PROTEIN, SERUM 5.9 g/dL (6.4-8.2); UREA NITROGEN, BLOOD 29 mg/dL (7-18)
[2019-05-11] MEDS: MULTIVITAMINS WITH MINERALS, THERAPEUTIC TABLET PO SCH (08:49)
[2019-05-11] MEDS: DOCUSATE SODIUM 100 MG CAPSULE PO SCH ×2 (08:49→20:29)
[2019-05-11] MEDS: FAMOTIDINE 20 MG TABLET PO SCH (08:49)
[2019-05-11] MEDS: DABIGATRAN ETEXILATE MESYLATE 75 MG CAPSULE PO SCH ×2 (08:49→20:29)
[2019-05-11] MEDS: DULoxetine HCL 20 MG CAPSULE PO SCH (08:50)
[2019-05-11] MEDS: CARVEDILOL 25 MG TABLET PO SCH ×2 (08:50→20:29)
[2019-05-11] MEDS: LURASIDONE HCL 40 MG TABLET PO SCH (08:50)
[2019-05-11] MEDS: VALSARTAN 40 MG TABLET PO SCH ×2 (08:51→20:30)
[2019-05-11] MEDS: GABAPENTIN 300 MG CAPSULE PO SCH ×4 (08:51→20:29)
[2019-05-11] MEDS ORDERED: TraMADol HCL 50 MG TABLET PO PRN (18:00)
[2019-05-12] MEDS: IPRATROPIUM BROMIDE 0.5 MG/2.5 ML NEB SOLUTION NEB SCH ×6 (03:54→22:41)
[2019-05-12] MEDS: ALBUTEROL SULFATE 2.5 MG/0.5 ML NEB SOLUTION NEB SCH ×6 (03:55→22:41)
[2019-05-12] MEDS: LORazepam 2 MG/ML VIAL IVP PRN ×2 (04:47→20:16)
[2019-05-12 04:55] VITALS: BP 122/86
[2019-05-12 08:01] VITALS: BP 121/60
[2019-05-12] MEDS: MULTIVITAMINS WITH MINERALS, THERAPEUTIC TABLET PO SCH (10:00)
[2019-05-12] MEDS: GABAPENTIN 300 MG CAPSULE PO SCH ×4 (10:00→20:13)
[2019-05-12] MEDS: DOCUSATE SODIUM 100 MG CAPSULE PO SCH ×2 (10:00→20:13)
[2019-05-12] MEDS: FAMOTIDINE 20 MG TABLET PO SCH (10:00)
[2019-05-12] MEDS: DABIGATRAN ETEXILATE MESYLATE 75 MG CAPSULE PO SCH ×2 (10:01→20:13)
[2019-05-12] MEDS: CARVEDILOL 25 MG TABLET PO SCH ×2 (10:01→20:13)
[2019-05-12] MEDS: DULoxetine HCL 20 MG CAPSULE PO SCH (10:02)
[2019-05-12] MEDS: VALSARTAN 40 MG TABLET PO SCH ×2 (10:03→20:13)
[2019-05-12] MEDS: LURASIDONE HCL 40 MG TABLET PO SCH (10:10)
[2019-05-12 12:32] VITALS: BP 145/99
[2019-05-12 16:21] VITALS: BP 117/78
[2019-05-12 20:14] VITALS: BP 108/71
[2019-05-13 00:30] VITALS: BP 132/70
[2019-05-13] MEDS: IPRATROPIUM BROMIDE 0.5 MG/2.5 ML NEB SOLUTION NEB SCH ×6 (03:31→22:50)
[2019-05-13] MEDS: ALBUTEROL SULFATE 2.5 MG/0.5 ML NEB SOLUTION NEB SCH ×6 (03:31→22:49)
[2019-05-13] MEDS: LORazepam 2 MG/ML VIAL IVP PRN (04:15)
[2019-05-13 05:11] VITALS: BP 141/76
[2019-05-13 08:26] VITALS: BP 122/90
[2019-05-13] MEDS: DULoxetine HCL 20 MG CAPSULE PO SCH (09:46)
[2019-05-13] MEDS: DOCUSATE SODIUM 100 MG CAPSULE PO SCH ×2 (09:46→21:53)
[2019-05-13] MEDS: LURASIDONE HCL 40 MG TABLET PO SCH (09:47)
[2019-05-13] MEDS: FAMOTIDINE 20 MG TABLET PO SCH (09:47)
[2019-05-13] MEDS: GABAPENTIN 300 MG CAPSULE PO SCH ×4 (09:47→21:53)
[2019-05-13] MEDS: MULTIVITAMINS WITH MINERALS, THERAPEUTIC TABLET PO SCH (09:47)
[2019-05-13] MEDS: VALSARTAN 40 MG TABLET PO SCH ×2 (09:48→21:51)
[2019-05-13] MEDS: CARVEDILOL 25 MG TABLET PO SCH ×2 (09:48→21:53)
[2019-05-13] MEDS: DABIGATRAN ETEXILATE MESYLATE 75 MG CAPSULE PO SCH ×2 (09:49→21:53)
[2019-05-13 11:00] VITALS: BP 139/95
[2019-05-13 16:39] VITALS: BP 114/78
[2019-05-13 19:12] LABS: HIV 1-2 SCREEN 4TH GEN W/RFLX Non Reactive (Non Reactive)
[2019-05-13 19:23] VITALS: BP 137/66
[2019-05-14 01:15] VITALS: BP 125/89
[2019-05-14] MEDS: LORazepam 2 MG/ML VIAL IVP PRN ×2 (01:31→10:19)
[2019-05-14] MEDS: ALBUTEROL SULFATE 2.5 MG/0.5 ML NEB SOLUTION NEB SCH ×5 (02:57→19:50)
[2019-05-14] MEDS: IPRATROPIUM BROMIDE 0.5 MG/2.5 ML NEB SOLUTION NEB SCH ×5 (02:58→19:50)
[2019-05-14 05:28] VITALS: BP 126/76
[2019-05-14 08:35] VITALS: BP 153/75
[2019-05-14] MEDS: DABIGATRAN ETEXILATE MESYLATE 75 MG CAPSULE PO SCH (09:21)
[2019-05-14] MEDS: GABAPENTIN 300 MG CAPSULE PO SCH ×3 (09:21→17:34)
[2019-05-14] MEDS: DOCUSATE SODIUM 100 MG CAPSULE PO SCH (09:21)
[2019-05-14] MEDS: FAMOTIDINE 20 MG TABLET PO SCH (09:21)
[2019-05-14] MEDS: MULTIVITAMINS WITH MINERALS, THERAPEUTIC TABLET PO SCH (09:21)
[2019-05-14] MEDS: VALSARTAN 40 MG TABLET PO SCH (09:21)
[2019-05-14] MEDS: CARVEDILOL 25 MG TABLET PO SCH (09:21)
[2019-05-14] MEDS: DULoxetine HCL 20 MG CAPSULE PO SCH (09:21)
[2019-05-14] MEDS: LURASIDONE HCL 40 MG TABLET PO SCH (09:22)
[2019-05-14 11:39] VITALS: BP 104/69
[2019-05-14 16:06] VITALS: BP 142/90
[2019-05-15 00:10] LABS: QUANTIFERON+, Nil Value 0.02 IU/mL; QUANTIFERON+,Mitogen Value >10.00 IU/mL; QUANTIFERON+,TB1 Antigen Value 0.02 IU/mL; QUANTIFERON, TB GOLD PLUS Negative (Negative)
== END 2019-05-14 20:32 | disposition left against medical advice (07) | DRG 194 ==
LOC: EMS 03:43 → 5S 09:59 → 5N 05-13 21:30
PROVIDERS: ADMIT Internal Medicine; ATTEND Internal Medicine
PROC: 5A09357 Assistance with Respiratory Ventilation, Less than 24 Consecutive Hours, Continuous Positive Airway Pressure (ICD-10-PCS; principal; 2019-05-07)
PROC: 5A09357 Assistance with Respiratory Ventilation, Less than 24 Consecutive Hours, Continuous Positive Airway Pressure (ICD-10-PCS; 2019-05-08)
PROC: 5A09357 Assistance with Respiratory Ventilation, Less than 24 Consecutive Hours, Continuous Positive Airway Pressure (ICD-10-PCS; 2019-05-09)
PROC: 5A09357 Assistance with Respiratory Ventilation, Less than 24 Consecutive Hours, Continuous Positive Airway Pressure (ICD-10-PCS; 2019-05-10)
PROC: 5A09357 Assistance with Respiratory Ventilation, Less than 24 Consecutive Hours, Continuous Positive Airway Pressure (ICD-10-PCS; 2019-05-11)
PROC: 5A09357 Assistance with Respiratory Ventilation, Less than 24 Consecutive Hours, Continuous Positive Airway Pressure (ICD-10-PCS; 2019-05-12)
PROC: 5A09357 Assistance with Respiratory Ventilation, Less than 24 Consecutive Hours, Continuous Positive Airway Pressure (ICD-10-PCS; 2019-05-13)
PROC: 5A09357 Assistance with Respiratory Ventilation, Less than 24 Consecutive Hours, Continuous Positive Airway Pressure (ICD-10-PCS; 2019-05-14)
DX: I11.0 Hypertensive heart disease with heart failure (principal); I47.2 Ventricular tachycardia; E66.01 Morbid (severe) obesity due to excess calories; F33.9 Major depressive disorder, recurrent, unspecified; I48.92 Unspecified atrial flutter; I47.1 Supraventricular tachycardia; I48.20 Chronic atrial fibrillation, unspecified; G43.909 Migraine, unspecified, not intractable, without status migrainosus; J44.1 Chronic obstructive pulmonary disease with (acute) exacerbation; I50.23 Acute on chronic systolic (congestive) heart failure; I42.8 Other cardiomyopathies; F10.129 Alcohol abuse with intoxication, unspecified; I50.20 Unspecified systolic (congestive) heart failure; I25.10 Atherosclerotic heart disease of native coronary artery without angina pectoris; I44.7 Left bundle-branch block, unspecified; I10 Essential (primary) hypertension; G47.33 Obstructive sleep apnea (adult) (pediatric); E78.5 Hyperlipidemia, unspecified; F17.200 Nicotine dependence, unspecified, uncomplicated; F98.8 Other specified behavioral and emotional disorders with onset usually occurring in childhood and adolescence; E78.00 Pure hypercholesterolemia, unspecified; G89.4 Chronic pain syndrome; Z91.14 Patient's other noncompliance with medication regimen; Z91.19 Patient's noncompliance with other medical treatment and regimen; Z86.711 Personal history of pulmonary embolism; Z68.41 Body mass index [BMI] 40.0-44.9, adult; Z81.8 Family history of other mental and behavioral disorders; Z82.49 Family history of ischemic heart disease and other diseases of the circulatory system; Z82.5 Family history of asthma and other chronic lower respiratory diseases
CPT/HCPCS: 71250; 83735; 86480; 87015; 87081; 87206; 87389; 87556; 87798; 92526; 92610; 93005; 94640; 94660; G0378; G0480; J1200; J1630; J1940; J2060; J3411; J3475; J3490; J7030

== ENCOUNTER 2019-05-20 02:11 | Emergency (ER) | payer OTHER ==
[~2019-05-20] VITALS: Ht 182.9 cm; Wt 125.0 kg
[2019-05-20] MEDS ORDERED: TRAZ-252 PO (03:15)
[2019-05-20] MEDS ORDERED: PANT40TA25 PO (03:15)
[2019-05-20] MEDS ORDERED: SLOWK8 PO (03:15)
[2019-05-20] MEDS ORDERED: LISI-661 PO (03:15)
[2019-05-20] MEDS ORDERED: SPIR25 PO (03:15)
[2019-05-20] MEDS ORDERED: CARV25 PO (03:15)
[2019-05-20] MEDS ORDERED: DULO40CA2 PO (03:15)
[2019-05-20] MEDS ORDERED: FURO40 PO (03:15)
[2019-05-20] MEDS ORDERED: [UNRECOGNIZED DRUG - CODE] IVP (03:16)
[2019-05-20] MEDS ORDERED: AMLO5TAB9 PO (03:16)
[2019-05-20 04:28] LABS: BASOPHILS % (AUTO) 0.7 % (0.0-2.0); EOSINOPHILS % (AUTO) 2.8 % (1.0-6.0); HEMATOCRIT 40.6 % (41-53); HEMOGLOBIN 13.3 g/dL (13.5-17.5); LYMPHOCYTES # (AUTO) 1.2 K/uL (1.0-4.8); LYMPHOCYTES % (AUTO) 19.1 % (22.0-44.0); MEAN CORPUSCULAR HEMOGLOBIN 32.1 pg (26.0-34.0); MEAN CORPUSCULAR HGB CONC 32.8 G/dL (31.0-37.0); MEAN CORPUSCULAR VOLUME 98 fL (80-100); MONOCYTES # (AUTO) 0.5 K/uL (0.1-1.0); MONOCYTES % (AUTO) 7.7 % (2.0-9.0); NEUTROPHILS # (AUTO) 4.5 K/uL (1.8-7.7); NEUTROPHILS % (AUTO) 69.7 % (40.0-70.0); PLATELET COUNT (AUTO) 213 K/uL (150-450); RED BLOOD CELL COUNT(AUTO) 4.14 MIL/uL (4.50-5.90); RED CELL DISTRIBUTION WIDTH 15.2 % (11.5-14.5)
[2019-05-20 04:40] LABS: ANION GAP 7 mmol/L (8-16); CALCIUM, TOTAL 8.9 mg/dL (8.8-10.5); CARBON DIOXIDE 30 mmol/L (22-29); CHLORIDE 104 mmol/L (98-107); CREATININE 1.16 mg/dL (0.60-1.30); GLOMERULAR FILTR. RATE CALC > 60 mL/min (>60); GLUCOSE,RANDOM 101 mg/dL (70-110); POTASSIUM 4.6 mmol/L (3.5-5.1); SODIUM SERUM 141 mmol/L (136-145); UREA NITROGEN, BLOOD 13 mg/dL (7-18)
[2019-05-20 04:47] LABS: ALANINE AMINOTRANSFERASE 32 U/L (12-78); ALBUMIN 3.6 g/dL (3.4-5.0); ALKALINE PHOSPHATASE 74 U/L (46-116); ASPARTATE AMINOTRANSFERASE 19 U/L (15-37); BILIRUBIN,TOTAL 1.5 mg/dL (0.1-1.0); CREATINE KINASE, TOTAL ONLY 53 U/L (39-308); INR 1.2 (0.9-1.1); PROTHROMBIN TIME 12.4 SEC (9.4-11.6); TOTAL PROTEIN, SERUM 7.4 g/dL (6.4-8.2)
[2019-05-20 05:05] LABS: B-TYPE NATRIURETIC PEPTIDE 1510 pg/mL (0-100)
[2019-05-20] MEDS ORDERED: FUROSEMIDE 20 MG TABLET PO ONE (07:00)
[2019-05-20 08:30] VITALS: BP 150/89
== END 2019-05-20 09:01 | disposition home or self-care (01) ==
LOC: EMS 02:11
DX: I48.92 Unspecified atrial flutter (principal); I11.0 Hypertensive heart disease with heart failure; I50.9 Heart failure, unspecified; J44.9 Chronic obstructive pulmonary disease, unspecified; E78.00 Pure hypercholesterolemia, unspecified; F31.9 Bipolar disorder, unspecified; G43.909 Migraine, unspecified, not intractable, without status migrainosus; G89.29 Other chronic pain; F12.90 Cannabis use, unspecified, uncomplicated; Z95.0 Presence of cardiac pacemaker; Z79.899 Other long term (current) drug therapy; Z79.82 Long term (current) use of aspirin
CPT/HCPCS: 93005

== ENCOUNTER 2019-05-26 01:15 | Emergency (ER) | payer OTHER ==
[~2019-05-26] VITALS: Ht 190.5 cm; Wt 125.0 kg
[~2019-05-26 01:15] MED LIST changes: +AMLO5TAB9 PO; +CARV25 PO; +DULO40CA2 PO; +FURO40 PO; +LISI-661 PO; +PANT40TA25 PO; +SLOWK8 PO; +SPIR25 PO; +TRAZ-252 PO; +[UNRECOGNIZED DRUG - CODE] IVP
[2019-05-26 02:25] LABS: BASOPHILS % (AUTO) 0.9 % (0.0-2.0); EOSINOPHILS % (AUTO) 7.1 % (1.0-6.0); HEMATOCRIT 39.8 % (41-53); LYMPHOCYTES # (AUTO) 1.7 K/uL (1.0-4.8); LYMPHOCYTES % (AUTO) 30.9 % (22.0-44.0); MEAN CORPUSCULAR HEMOGLOBIN 31.7 pg (26.0-34.0); MEAN CORPUSCULAR HGB CONC 32.6 G/dL (31.0-37.0); MEAN CORPUSCULAR VOLUME 97 fL (80-100); MONOCYTES # (AUTO) 0.4 K/uL (0.1-1.0); MONOCYTES % (AUTO) 7.5 % (2.0-9.0); NEUTROPHILS # (AUTO) 2.9 K/uL (1.8-7.7); NEUTROPHILS % (AUTO) 53.6 % (40.0-70.0); PLATELET COUNT (AUTO) 251 K/uL (150-450); RED CELL DISTRIBUTION WIDTH 15.1 % (11.5-14.5)
[2019-05-26 02:35] LABS: ANION GAP 8 mmol/L (8-16); CALCIUM, TOTAL 9.3 mg/dL (8.8-10.5); CARBON DIOXIDE 29 mmol/L (22-29); CHLORIDE 103 mmol/L (98-107); CREATININE 1.12 mg/dL (0.60-1.30); GLOMERULAR FILTR. RATE CALC > 60 mL/min (>60); GLUCOSE,RANDOM 105 mg/dL (70-110); POTASSIUM 4.8 mmol/L (3.5-5.1); SODIUM SERUM 140 mmol/L (136-145); UREA NITROGEN, BLOOD 21 mg/dL (7-18)
[2019-05-26 02:37] LABS: INR 1.1 (0.9-1.1); PROTHROMBIN TIME 10.9 SEC (9.4-11.6)
[2019-05-26 02:51] LABS: B-TYPE NATRIURETIC PEPTIDE 658 pg/mL (0-100)
[2019-05-26 03:00] LABS: ALANINE AMINOTRANSFERASE 28 U/L (12-78); ALBUMIN 3.5 g/dL (3.4-5.0); ALKALINE PHOSPHATASE 105 U/L (46-116); ASPARTATE AMINOTRANSFERASE 22 U/L (15-37); BILIRUBIN,TOTAL 0.4 mg/dL (0.1-1.0); CREATINE KINASE, TOTAL ONLY 84 U/L (39-308); TOTAL PROTEIN, SERUM 7.1 g/dL (6.4-8.2)
[2019-05-26] MEDS ORDERED: DIGOXIN 125 MCG TABLET PO ONE (03:00)
[2019-05-26] MEDS ORDERED: AmLODIPine BESYLATE 5 MG TABLET PO ONE (03:00)
[2019-05-26] MEDS ORDERED: CARVEDILOL 25 MG TABLET PO ONE (03:00)
[2019-05-26 03:10] VITALS: BP 145/96
== END 2019-05-26 04:15 | disposition home or self-care (01) ==
LOC: EMS 01:15
DX: F41.9 Anxiety disorder, unspecified (principal); F31.9 Bipolar disorder, unspecified; J44.9 Chronic obstructive pulmonary disease, unspecified; I11.0 Hypertensive heart disease with heart failure; I50.9 Heart failure, unspecified; I48.91 Unspecified atrial fibrillation; F12.90 Cannabis use, unspecified, uncomplicated; Z91.14 Patient's other noncompliance with medication regimen; Z79.82 Long term (current) use of aspirin; Z79.899 Other long term (current) drug therapy
CPT/HCPCS: 36415; 71045; 80053; 82550; 83880; 84484; 85025; 85610; 85730; 93005; 99285; G0480

== ENCOUNTER 2019-06-06 14:22 | Emergency (ER) | payer OTHER ==
[~2019-06-06] VITALS: Ht 190.5 cm; Wt 129.6 kg
[~2019-06-06 14:22] MED LIST changes: -CARV6 PO
[2019-06-06] MEDS ORDERED: SODIUM CHLORIDE 0.9% 1,000 ML IV ONE ×2 (15:00→15:30)
[2019-06-06 15:11] LABS: BASOPHILS % (AUTO) 0.8 % (0.0-2.0); EOSINOPHILS % (AUTO) 4.3 % (1.0-6.0); HEMATOCRIT 44.3 % (41-53); HEMOGLOBIN 14.5 g/dL (13.5-17.5); LYMPHOCYTES # (AUTO) 1.5 K/uL (1.0-4.8); LYMPHOCYTES % (AUTO) 32.3 % (22.0-44.0); MEAN CORPUSCULAR HEMOGLOBIN 31.2 pg (26.0-34.0); MEAN CORPUSCULAR HGB CONC 32.8 G/dL (31.0-37.0); MEAN CORPUSCULAR VOLUME 95 fL (80-100); MONOCYTES # (AUTO) 0.4 K/uL (0.1-1.0); MONOCYTES % (AUTO) 8.8 % (2.0-9.0); NEUTROPHILS # (AUTO) 2.6 K/uL (1.8-7.7); NEUTROPHILS % (AUTO) 53.8 % (40.0-70.0); PLATELET COUNT (AUTO) 253 K/uL (150-450); RED BLOOD CELL COUNT(AUTO) 4.65 MIL/uL (4.50-5.90); RED CELL DISTRIBUTION WIDTH 14.5 % (11.5-14.5)
[2019-06-06 15:18] LABS: CREATININE 1.89 mg/dL (0.60-1.30); POTASSIUM 4.2 mmol/L (3.5-5.1)
[2019-06-06] MEDS ORDERED: MIDODRINE HCL 5 MG TABLET PO ONE (15:45)
[2019-06-06 18:25] VITALS: BP 129/66
== END 2019-06-06 18:55 | disposition home or self-care (01) ==
LOC: EMS 14:23
DX: F10.129 Alcohol abuse with intoxication, unspecified (principal); R42 Dizziness and giddiness; E78.00 Pure hypercholesterolemia, unspecified; G43.909 Migraine, unspecified, not intractable, without status migrainosus; G89.29 Other chronic pain; I48.91 Unspecified atrial fibrillation; I11.0 Hypertensive heart disease with heart failure; I50.9 Heart failure, unspecified; J44.9 Chronic obstructive pulmonary disease, unspecified; F31.9 Bipolar disorder, unspecified; F12.90 Cannabis use, unspecified, uncomplicated; Z98.890 Other specified postprocedural states; Z79.899 Other long term (current) drug therapy; Z95.0 Presence of cardiac pacemaker; Y90.8 Blood alcohol level of 240 mg/100 ml or more
CPT/HCPCS: 36415; 80048; 85025; 93005; 96360; 99284; G0480; J7030

== ENCOUNTER 2019-10-26 14:39 | Inpatient (IN) | payer MEDICAID, OTHER ==
[~2019-10-26] VITALS: Ht 190.5 cm; Wt 122.5 kg
[~2019-10-26 14:39] MED LIST changes: +AMLO-257 PO; -AMLO5TAB9 PO; +ATOR40TA28 PO; -CARV25 PO; +CARV6 PO; -DABI75CA3 PO; +DIGO125T84 PO; -DULO40CA2 PO; +FOLI-130 PO; -LISI-661 PO; +MECL-98 PO; +MULT-1203 PO; +PANT-31 PO; -PANT40TA25 PO; +RIVA15T PO; -SLOWK8 PO; -SPIR25 PO; +THIA100T80 PO; -[UNRECOGNIZED DRUG - CODE] IVP
[2019-10-26 15:46] LABS: BASOPHILS % (AUTO) 0.7 % (0.0-2.0); EOSINOPHILS % (AUTO) 3.4 % (1.0-6.0); HEMATOCRIT 44.1 % (41-53); HEMOGLOBIN 14.8 g/dL (13.5-17.5); LYMPHOCYTES # (AUTO) 1.6 K/uL (1.0-4.8); MEAN CORPUSCULAR HEMOGLOBIN 31.5 pg (26.0-34.0); MEAN CORPUSCULAR HGB CONC 33.5 G/dL (31.0-37.0); MEAN CORPUSCULAR VOLUME 94 fL (80-100); MONOCYTES # (AUTO) 0.7 K/uL (0.1-1.0); MONOCYTES % (AUTO) 9.4 % (2.0-9.0); NEUTROPHILS # (AUTO) 4.9 K/uL (1.8-7.7); NEUTROPHILS % (AUTO) 65.5 % (40.0-70.0); PLATELET COUNT (AUTO) 271 K/uL (150-450); RED BLOOD CELL COUNT(AUTO) 4.69 MIL/uL (4.50-5.90); RED CELL DISTRIBUTION WIDTH 14.8 % (11.5-14.5)
[2019-10-26] MEDS ORDERED: RIVA15T PO (15:50)
[2019-10-26 16:11] LABS: ANION GAP 8 mmol/L (8-16); CALCIUM, TOTAL 9.7 mg/dL (8.8-10.5); CARBON DIOXIDE 30 mmol/L (22-29); CHLORIDE 102 mmol/L (98-107); CREATININE 1.58 mg/dL (0.60-1.30); GLOMERULAR FILTR. RATE CALC 45 mL/min (>60); GLUCOSE,RANDOM 116 mg/dL (70-110); POTASSIUM 4.6 mmol/L (3.5-5.1); SODIUM SERUM 140 mmol/L (136-145); UREA NITROGEN, BLOOD 16 mg/dL (7-18)
[2019-10-26 16:21] LABS: ALANINE AMINOTRANSFERASE 42 U/L (12-78); ALBUMIN 3.9 g/dL (3.4-5.0); ALKALINE PHOSPHATASE 84 U/L (46-116); ASPARTATE AMINOTRANSFERASE 25 U/L (15-37); BILIRUBIN,TOTAL 1.6 mg/dL (0.1-1.0); TOTAL PROTEIN, SERUM 8.1 g/dL (6.4-8.2)
[2019-10-26 16:34] LABS: DIGOXIN 0.21 ng/mL (0.90-2.00)
[2019-10-26 16:39] LABS: ACETAMINOPHEN < 2 mcg/mL (10-30)
[2019-10-26 17:09] LABS: SALICYLATE < 2.8 mg/dL (2.8-20.0)
[2019-10-26] MEDS ORDERED: HydrOXYzine HCL 50 MG TABLET PO ONE (18:00)
[2019-10-26] MEDS ORDERED: LORazepam 2 MG TABLET PO PRN (19:15)
[2019-10-26] MEDS ORDERED: HALOPERIDOL 5 MG TABLET PO PRN (19:15)
[2019-10-26 21:00] VITALS: BP 137/82
[2019-10-26] MEDS: ZOLPIDEM TARTRATE 10 MG TABLET PO PRN (21:35)
[2019-10-26] MEDS ORDERED: MECLIZINE HCL 25 MG TABLET PO PRN (21:45)
[2019-10-26] MEDS ORDERED: IBUPROFEN 400 MG TABLET PO PRN (21:45)
[2019-10-26] MEDS ORDERED: PETROLATUM,WHITE 28 GM JELLY TP PRN (21:45)
[2019-10-26] MEDS ORDERED: MAGNESIUM HYDROXIDE SUSPENSION 30 ML UDCUP PO PRN (21:45)
[2019-10-26] MEDS ORDERED: ALBUTEROL SULFATE HFA 90 MCG/PUFF 8 GM INHALER IH PRN (21:45)
[2019-10-26] MEDS ORDERED: ACETAMINOPHEN 325 MG TABLET PO PRN (21:45)
[2019-10-26] MEDS ORDERED: ONDANSETRON HCL 4 MG TABLET PO PRN (21:45)
[2019-10-26] MEDS ORDERED: DOCUSATE SODIUM 100 MG CAPSULE PO PRN (21:45)
[2019-10-26] MEDS ORDERED: CloNIDine HCL 0.1 MG TABLET PO PRN (21:45)
[2019-10-26] MEDS ORDERED: GuaiFENesin/D-METHORPHAN [SUGAR-FREE] 200-20MG/10 ML SYRUP UDCUP PO PRN (21:45)
[2019-10-26] MEDS ORDERED: LOPERAMIDE HCL 2 MG CAPSULE PO PRN (21:45)
[2019-10-26] MEDS ORDERED: NICOTINE 14 MG/24 HOUR PATCH TD PRN (21:45)
[2019-10-26] MEDS ORDERED: MAG HYDROX/AL HYDROX/SIMETH ES 30 ML SUSPENSION UDCUP PO PRN (21:45)
[2019-10-26] MEDS ORDERED: TraMADol HCL 50 MG TABLET PO PRN (22:30)
[2019-10-27 08:00] VITALS: BP 140/75
[2019-10-27] MEDS: DIGOXIN 125 MCG TABLET PO SCH (11:01)
[2019-10-27] MEDS: CARVEDILOL 25 MG TABLET PO SCH ×2 (11:01→17:18)
[2019-10-27] MEDS: ASPIRIN 81 MG EC TABLET PO SCH (11:03)
[2019-10-27] MEDS: AmLODIPine BESYLATE 5 MG TABLET PO SCH (11:04)
[2019-10-27] MEDS: FOLIC ACID 1 MG TABLET PO SCH (11:05)
[2019-10-27] MEDS: FUROSEMIDE 40 MG TABLET PO SCH (11:05)
[2019-10-27] MEDS: PANTOPRAZOLE SODIUM 40 MG DR TABLET PO SCH (11:06)
[2019-10-27] MEDS: NICOTINE 14 MG/24 HOUR PATCH TD SCH (11:09)
[2019-10-27 16:31] VITALS: BP 121/87
[2019-10-27] MEDS: RIVAROXABAN 15 MG TABLET PO SCH (17:18)
[2019-10-27] MEDS: ATORVASTATIN CALCIUM 40 MG TABLET PO SCH (21:19)
[2019-10-27] MEDS: TraZODone HCL 50 MG TABLET PO SCH (21:19)
[2019-10-28 05:44] VITALS: BP 128/81
[2019-10-28 06:56] VITALS: BP 143/84
[2019-10-28 09:00] VITALS: BP 143/98
[2019-10-28] MEDS: CARVEDILOL 25 MG TABLET PO SCH ×2 (10:41→16:45)
[2019-10-28] MEDS: DIGOXIN 125 MCG TABLET PO SCH (10:42)
[2019-10-28] MEDS: AmLODIPine BESYLATE 5 MG TABLET PO SCH (10:45)
[2019-10-28] MEDS: PANTOPRAZOLE SODIUM 40 MG DR TABLET PO SCH (10:45)
[2019-10-28] MEDS: FUROSEMIDE 40 MG TABLET PO SCH (10:45)
[2019-10-28] MEDS: DULoxetine HCL 60 MG CAPSULE PO SCH (10:45)
[2019-10-28] MEDS: ASPIRIN 81 MG EC TABLET PO SCH (10:46)
[2019-10-28] MEDS: FOLIC ACID 1 MG TABLET PO SCH (10:46)
[2019-10-28] MEDS: NICOTINE 14 MG/24 HOUR PATCH TD SCH (10:47)
[2019-10-28 16:35] VITALS: BP 12/82
[2019-10-28] MEDS: RIVAROXABAN 15 MG TABLET PO SCH (16:46)
[2019-10-28] MEDS: ATORVASTATIN CALCIUM 40 MG TABLET PO SCH (20:50)
[2019-10-28] MEDS: TraZODone HCL 50 MG TABLET PO SCH (20:51)
[2019-10-29 08:17] VITALS: BP 147/72
[2019-10-29] MEDS: AmLODIPine BESYLATE 5 MG TABLET PO SCH (09:58)
[2019-10-29] MEDS: FOLIC ACID 1 MG TABLET PO SCH (09:58)
[2019-10-29] MEDS: DULoxetine HCL 60 MG CAPSULE PO SCH (09:58)
[2019-10-29] MEDS: FUROSEMIDE 40 MG TABLET PO SCH (09:58)
[2019-10-29] MEDS: PANTOPRAZOLE SODIUM 40 MG DR TABLET PO SCH (09:58)
[2019-10-29] MEDS: DIGOXIN 125 MCG TABLET PO SCH (09:59)
[2019-10-29] MEDS: ASPIRIN 81 MG EC TABLET PO SCH (09:59)
[2019-10-29] MEDS: CARVEDILOL 25 MG TABLET PO SCH ×2 (09:59→17:37)
[2019-10-29] MEDS: NICOTINE 14 MG/24 HOUR PATCH TD SCH (10:02)
[2019-10-29 16:00] VITALS: BP 136/82
[2019-10-29] MEDS: RIVAROXABAN 15 MG TABLET PO SCH (17:37)
[2019-10-29] MEDS: TraZODone HCL 50 MG TABLET PO SCH (20:56)
[2019-10-29] MEDS: ATORVASTATIN CALCIUM 40 MG TABLET PO SCH (20:56)
[2019-10-30] MEDS: ZOLPIDEM TARTRATE 10 MG TABLET PO PRN (01:44)
[2019-10-30 02:11] VITALS: BP 145/67
[2019-10-30] MEDS: DIGOXIN 125 MCG TABLET PO SCH (08:29)
[2019-10-30 08:30] VITALS: BP 156/83
[2019-10-30] MEDS: ASPIRIN 81 MG EC TABLET PO SCH (09:11)
[2019-10-30] MEDS: DULoxetine HCL 60 MG CAPSULE PO SCH (09:11)
[2019-10-30] MEDS: FUROSEMIDE 40 MG TABLET PO SCH (09:12)
[2019-10-30] MEDS: NICOTINE 14 MG/24 HOUR PATCH TD SCH (09:12)
[2019-10-30] MEDS: PANTOPRAZOLE SODIUM 40 MG DR TABLET PO SCH (09:12)
[2019-10-30] MEDS: FOLIC ACID 1 MG TABLET PO SCH (09:12)
[2019-10-30] MEDS ORDERED: AmLODIPine BESYLATE 5 MG TABLET PO SCH (09:15)
[2019-10-30 11:10] VITALS: BP 121/69
[2019-10-30] MEDS ORDERED: CARVEDILOL 12.5 MG TABLET PO SCH (17:00)
[2019-10-30] MEDS ORDERED: CARV25 PO (19:02)
[2019-10-31] MEDS ORDERED: DIGOXIN 125 MCG TABLET PO SCH (09:00)
== END 2019-10-30 17:30 | disposition short-term general hospital (02) | DRG 751 ==
LOC: EMS 14:40 → 3EI 19:15
PROVIDERS: ADMIT Psychiatry & Neurology Psychiatry; ATTEND Psychiatry & Neurology Psychiatry
DX: F33.2 Major depressive disorder, recurrent severe without psychotic features (principal); N18.9 Chronic kidney disease, unspecified; I13.0 Hypertensive heart and chronic kidney disease with heart failure and stage 1 through stage 4 chronic kidney disease, or unspecified chronic kidney disease; I48.20 Chronic atrial fibrillation, unspecified; R45.851 Suicidal ideations; R47.01 Aphasia; F12.90 Cannabis use, unspecified, uncomplicated; G43.909 Migraine, unspecified, not intractable, without status migrainosus; I25.10 Atherosclerotic heart disease of native coronary artery without angina pectoris; I50.9 Heart failure, unspecified; J44.9 Chronic obstructive pulmonary disease, unspecified; Z79.01 Long term (current) use of anticoagulants; Z86.73 Personal history of transient ischemic attack (TIA), and cerebral infarction without residual deficits; Z86.711 Personal history of pulmonary embolism; E78.5 Hyperlipidemia, unspecified; E78.00 Pure hypercholesterolemia, unspecified; F41.9 Anxiety disorder, unspecified; G89.29 Other chronic pain; Z59.0 Homelessness
CPT/HCPCS: 87081; G0480; G0481

== ENCOUNTER 2019-11-21 09:03 | Inpatient (IN) | payer MEDICAID, OTHER ==
[~2019-11-21] VITALS: Ht 188 cm; Wt 130.5 kg
[~2019-11-21 09:03] MED LIST changes: +ATOR20TA65 PO; -ATOR40TA28 PO; -CARV6 PO; -DIGO125T84 PO; +DULO-8 PO; +FAMO20 PO; -FOLI-130 PO; +LISI-661 PO; -MECL-98 PO; +METO25XL PO; -MULT-1203 PO; -PANT-31 PO; -THIA100T80 PO
[2019-11-21 09:38] LABS: BASOPHILS % (AUTO) 0.5 % (0.0-2.0); EOSINOPHILS % (AUTO) 1.9 % (1.0-6.0); HEMATOCRIT 45.1 % (41-53); LYMPHOCYTES # (AUTO) 1.8 K/uL (1.0-4.8); LYMPHOCYTES % (AUTO) 20.1 % (22.0-44.0); MEAN CORPUSCULAR HEMOGLOBIN 30.9 pg (26.0-34.0); MEAN CORPUSCULAR HGB CONC 33.3 G/dL (31.0-37.0); MEAN CORPUSCULAR VOLUME 93 fL (80-100); MONOCYTES # (AUTO) 0.6 K/uL (0.1-1.0); MONOCYTES % (AUTO) 6.7 % (2.0-9.0); NEUTROPHILS # (AUTO) 6.2 K/uL (1.8-7.7); NEUTROPHILS % (AUTO) 70.8 % (40.0-70.0); PLATELET COUNT (AUTO) 248 K/uL (150-450); RED BLOOD CELL COUNT(AUTO) 4.87 MIL/uL (4.50-5.90); RED CELL DISTRIBUTION WIDTH 15.2 % (11.5-14.5)
[2019-11-21 09:49] LABS: CALCIUM, TOTAL 8.9 mg/dL (8.8-10.5); CREATININE 1.53 mg/dL (0.60-1.30); POTASSIUM 4.3 mmol/L (3.5-5.1)
[2019-11-21 09:55] LABS: ALBUMIN 3.9 g/dL (3.4-5.0); BILIRUBIN,TOTAL 0.7 mg/dL (0.1-1.0); TOTAL PROTEIN, SERUM 7.5 g/dL (6.4-8.2)
[2019-11-21] MEDS ORDERED: IOVERSOL 350 MG/ML 100 ML VIAL ONE (11:50)
[2019-11-21] MEDS ORDERED: SODIUM CHLORIDE 0.9% 100 ML ONE (11:50)
[2019-11-21 12:26] LABS: INR 1.1 (0.9-1.1); PROTHROMBIN TIME 11.1 SEC (9.4-11.6)
[2019-11-21] MEDS ORDERED: ACETAMINOPHEN 325 MG TABLET PO PRN (13:15)
[2019-11-21] MEDS ORDERED: 0.9% SODIUM CHLORIDE 10 ML SYRINGE IVP PRN (13:15)
[2019-11-21] MEDS ORDERED: ONDANSETRON HCL 4 MG/2 ML VIAL IVP PRN (13:15)
[2019-11-21 15:09] VITALS: BP 145/97
[2019-11-21 16:34] LABS: MAGNESIUM 1.6 mg/dL (1.80-2.40)
[2019-11-21] MEDS ORDERED: LORazepam 2 MG/ML VIAL IVP ONE (17:00)
[2019-11-21 20:06] VITALS: BP 135/95
[2019-11-21] MEDS: FAMOTIDINE 20 MG TABLET PO SCH (20:21)
[2019-11-21] MEDS: TraZODone HCL 50 MG TABLET PO SCH (20:21)
[2019-11-21 23:19] VITALS: BP 147/90
[2019-11-22] MEDS ORDERED: ONDANSETRON HCL 4 MG/2 ML VIAL IVP PRN (03:00)
[2019-11-22 03:47] VITALS: BP 153/80
[2019-11-22 06:53] LABS: BASOPHILS % (AUTO) 0.7 % (0.0-2.0); EOSINOPHILS % (AUTO) 2.7 % (1.0-6.0); HEMATOCRIT 39.9 % (41-53); HEMOGLOBIN 13.9 g/dL (13.5-17.5); LYMPHOCYTES # (AUTO) 1.5 K/uL (1.0-4.8); LYMPHOCYTES % (AUTO) 23.4 % (22.0-44.0); MEAN CORPUSCULAR HEMOGLOBIN 31.7 pg (26.0-34.0); MEAN CORPUSCULAR HGB CONC 34.9 G/dL (31.0-37.0); MEAN CORPUSCULAR VOLUME 91 fL (80-100); MONOCYTES # (AUTO) 0.7 K/uL (0.1-1.0); MONOCYTES % (AUTO) 10.8 % (2.0-9.0); NEUTROPHILS % (AUTO) 62.4 % (40.0-70.0); PLATELET COUNT (AUTO) 180 K/uL (150-450); RED BLOOD CELL COUNT(AUTO) 4.38 MIL/uL (4.50-5.90); RED CELL DISTRIBUTION WIDTH 15.3 % (11.5-14.5)
[2019-11-22 07:10] VITALS: BP 148/78
[2019-11-22 07:34] LABS: ALANINE AMINOTRANSFERASE 28 U/L (12-78); ALBUMIN 3.5 g/dL (3.4-5.0); ALKALINE PHOSPHATASE 72 U/L (46-116); ANION GAP 9 mmol/L (8-16); ASPARTATE AMINOTRANSFERASE 27 U/L (15-37); BILIRUBIN,TOTAL 1.7 mg/dL (0.1-1.0); CALCIUM, TOTAL 8.8 mg/dL (8.8-10.5); CARBON DIOXIDE 25 mmol/L (22-29); CHLORIDE 100 mmol/L (98-107); CREATININE 1.04 mg/dL (0.60-1.30); GLOMERULAR FILTR. RATE CALC > 60 mL/min (>60); GLUCOSE,RANDOM 105 mg/dL (70-110); POTASSIUM 3.8 mmol/L (3.5-5.1); SODIUM SERUM 134 mmol/L (136-145); TOTAL PROTEIN, SERUM 6.8 g/dL (6.4-8.2); UREA NITROGEN, BLOOD 20 mg/dL (7-18)
[2019-11-22] MEDS: FAMOTIDINE 20 MG TABLET PO SCH ×2 (08:31→20:16)
[2019-11-22] MEDS: ASPIRIN 81 MG EC TABLET PO SCH (08:31)
[2019-11-22] MEDS: FUROSEMIDE 40 MG TABLET PO SCH (08:32)
[2019-11-22] MEDS: AmLODIPine BESYLATE 5 MG TABLET PO SCH (08:32)
[2019-11-22] MEDS: ATORVASTATIN CALCIUM 20 MG TABLET PO SCH (08:32)
[2019-11-22] MEDS: LISINOPRIL 10 MG TABLET PO SCH (09:54)
[2019-11-22] MEDS: METOPROLOL SUCCINATE 25 MG ER TABLET PO SCH (09:54)
[2019-11-22] MEDS: DULoxetine HCL 60 MG CAPSULE PO SCH (09:55)
[2019-11-22 11:44] VITALS: BP 157/97
[2019-11-22] MEDS: ACETAMINOPHEN 325 MG TABLET PO PRN (11:54)
[2019-11-22 14:54] VITALS: BP 148/100
[2019-11-22] MEDS: TraMADol HCL 50 MG TABLET PO PRN (16:23)
[2019-11-22 17:00] VITALS: BP 138/82
[2019-11-22] MEDS: RIVAROXABAN 15 MG TABLET PO SCH (18:45)
[2019-11-22 19:30] VITALS: BP 123/78
[2019-11-22] MEDS: TraZODone HCL 50 MG TABLET PO SCH (20:16)
[2019-11-23 00:02] VITALS: BP 135/68
[2019-11-23 04:14] VITALS: BP 110/66
[2019-11-23] MEDS: TraMADol HCL 50 MG TABLET PO PRN (04:35)
[2019-11-23 08:00] VITALS: BP 138/88
[2019-11-23] MEDS: FUROSEMIDE 40 MG TABLET PO SCH (08:06)
[2019-11-23] MEDS: ASPIRIN 81 MG EC TABLET PO SCH (08:06)
[2019-11-23] MEDS: LISINOPRIL 10 MG TABLET PO SCH (08:06)
[2019-11-23] MEDS: METOPROLOL SUCCINATE 25 MG ER TABLET PO SCH (08:06)
[2019-11-23] MEDS: FAMOTIDINE 20 MG TABLET PO SCH ×2 (08:07→20:27)
[2019-11-23] MEDS: DULoxetine HCL 60 MG CAPSULE PO SCH (08:07)
[2019-11-23] MEDS: ATORVASTATIN CALCIUM 20 MG TABLET PO SCH (08:07)
[2019-11-23] MEDS: AmLODIPine BESYLATE 5 MG TABLET PO SCH (08:07)
[2019-11-23 12:00] VITALS: BP 128/89
[2019-11-23] MEDS: NICOTINE 21 MG/24 HOUR PATCH TD SCH (12:56)
[2019-11-23 16:26] VITALS: BP 131/79
[2019-11-23] MEDS: RIVAROXABAN 15 MG TABLET PO SCH (17:18)
[2019-11-23 20:00] VITALS: BP 114/73
[2019-11-23] MEDS: TraZODone HCL 50 MG TABLET PO SCH (20:28)
[2019-11-24] VITALS (7 sets, daily range): BP systolic 107–139; BP diastolic 76–92
[2019-11-24] MEDS: TraMADol HCL 50 MG TABLET PO PRN ×2 (01:24→14:08)
[2019-11-24] MEDS: DULoxetine HCL 60 MG CAPSULE PO SCH (09:08)
[2019-11-24] MEDS: NICOTINE 21 MG/24 HOUR PATCH TD SCH (09:08)
[2019-11-24] MEDS: FAMOTIDINE 20 MG TABLET PO SCH ×2 (09:09→20:30)
[2019-11-24] MEDS: ASPIRIN 81 MG EC TABLET PO SCH (09:09)
[2019-11-24] MEDS: ATORVASTATIN CALCIUM 20 MG TABLET PO SCH (09:10)
[2019-11-24] MEDS: FUROSEMIDE 40 MG TABLET PO SCH (09:10)
[2019-11-24] MEDS: LISINOPRIL 10 MG TABLET PO SCH (09:51)
[2019-11-24] MEDS: METOPROLOL SUCCINATE 25 MG ER TABLET PO SCH (09:51)
[2019-11-24] MEDS: AmLODIPine BESYLATE 5 MG TABLET PO SCH (09:51)
[2019-11-24] MEDS: RIVAROXABAN 15 MG TABLET PO SCH (18:12)
[2019-11-24] MEDS: TraZODone HCL 50 MG TABLET PO SCH (22:21)
[2019-11-25 00:01] VITALS: BP 126/77
[2019-11-25] MEDS: TraMADol HCL 50 MG TABLET PO PRN (02:15)
[2019-11-25 05:05] VITALS: BP 132/98
[2019-11-25 08:00] VITALS: BP 148/95
[2019-11-25] MEDS: NICOTINE 21 MG/24 HOUR PATCH TD SCH (08:17)
[2019-11-25] MEDS: ASPIRIN 81 MG EC TABLET PO SCH (08:18)
[2019-11-25] MEDS: FAMOTIDINE 20 MG TABLET PO SCH (08:18)
[2019-11-25] MEDS: LISINOPRIL 10 MG TABLET PO SCH (08:18)
[2019-11-25] MEDS: METOPROLOL SUCCINATE 25 MG ER TABLET PO SCH (08:18)
[2019-11-25] MEDS: DULoxetine HCL 60 MG CAPSULE PO SCH (08:18)
[2019-11-25] MEDS: ATORVASTATIN CALCIUM 20 MG TABLET PO SCH (08:18)
[2019-11-25] MEDS: AmLODIPine BESYLATE 5 MG TABLET PO SCH (08:19)
[2019-11-25] MEDS: FUROSEMIDE 40 MG TABLET PO SCH (08:19)
[2019-11-25] MEDS: ACETAMINOPHEN 325 MG TABLET PO PRN (08:27)
[2019-12-01] MEDS ORDERED: FURO20 PO (12:39)
== END 2019-11-25 15:30 | disposition home or self-care (01) | DRG 775 ==
LOC: EMS 09:05 → 5S 13:45 → 4E 11-24 19:01
PROVIDERS: ADMIT Hospitalist; ATTEND Hospitalist
DX: F10.129 Alcohol abuse with intoxication, unspecified (principal); R47.01 Aphasia; I48.91 Unspecified atrial fibrillation; E78.5 Hyperlipidemia, unspecified; J44.9 Chronic obstructive pulmonary disease, unspecified; I11.0 Hypertensive heart disease with heart failure; I49.5 Sick sinus syndrome; F99 Mental disorder, not otherwise specified; E66.01 Morbid (severe) obesity due to excess calories; F22 Delusional disorders; I25.10 Atherosclerotic heart disease of native coronary artery without angina pectoris; I48.0 Paroxysmal atrial fibrillation; I50.22 Chronic systolic (congestive) heart failure; G43.909 Migraine, unspecified, not intractable, without status migrainosus; R45.851 Suicidal ideations; Z68.36 Body mass index [BMI] 36.0-36.9, adult; Z86.73 Personal history of transient ischemic attack (TIA), and cerebral infarction without residual deficits; Z91.19 Patient's noncompliance with other medical treatment and regimen; Z59.0 Homelessness; Z91.5 Personal history of self-harm; D68.69 Other thrombophilia
CPT/HCPCS: 70496; 82947; 83735; 92523; 93005; 93880; 99291; G0378; G0480; J2060; J2405; J7050; 36415-L1; 36415-TC; 70450; 70450-TC; 71045-TC

== ENCOUNTER 2019-12-05 11:02 | Emergency (ER) | payer OTHER ==
[~2019-12-05] VITALS: Ht 190.5 cm; Wt 127.3 kg
[~2019-12-05 11:02] MED LIST changes: -AMLO-257 PO; -DULO-8 PO; +FURO20 PO; -FURO40 PO
[2019-12-05 11:53] LABS: EOSINOPHILS % (AUTO) 3.7 % (1.0-6.0); HEMATOCRIT 40.1 % (41-53); HEMOGLOBIN 13.3 g/dL (13.5-17.5); LYMPHOCYTES # (AUTO) 1.4 K/uL (1.0-4.8); LYMPHOCYTES % (AUTO) 26.6 % (22.0-44.0); MEAN CORPUSCULAR HEMOGLOBIN 30.8 pg (26.0-34.0); MEAN CORPUSCULAR HGB CONC 33.2 G/dL (31.0-37.0); MEAN CORPUSCULAR VOLUME 93 fL (80-100); MONOCYTES # (AUTO) 0.5 K/uL (0.1-1.0); NEUTROPHILS # (AUTO) 3.2 K/uL (1.8-7.7); NEUTROPHILS % (AUTO) 59.7 % (40.0-70.0); PLATELET COUNT (AUTO) 253 K/uL (150-450); RED BLOOD CELL COUNT(AUTO) 4.32 MIL/uL (4.50-5.90); RED CELL DISTRIBUTION WIDTH 15.8 % (11.5-14.5)
[2019-12-05 12:02] LABS: CALCIUM, TOTAL 8.1 mg/dL (8.8-10.5); CREATININE 1.87 mg/dL (0.60-1.30); POTASSIUM 4.5 mmol/L (3.5-5.1)
[2019-12-05 12:09] LABS: ALBUMIN 3.8 g/dL (3.4-5.0); BILIRUBIN,TOTAL 0.4 mg/dL (0.1-1.0); TOTAL PROTEIN, SERUM 6.8 g/dL (6.4-8.2)
[2019-12-05 13:40] VITALS: BP 126/70
== END 2019-12-05 14:01 | disposition home or self-care (01) ==
LOC: EMS 11:37
DX: F31.9 Bipolar disorder, unspecified (principal); F10.129 Alcohol abuse with intoxication, unspecified; I11.0 Hypertensive heart disease with heart failure; I50.9 Heart failure, unspecified; E78.00 Pure hypercholesterolemia, unspecified; I48.91 Unspecified atrial fibrillation; J44.9 Chronic obstructive pulmonary disease, unspecified; F12.90 Cannabis use, unspecified, uncomplicated; F15.90 Other stimulant use, unspecified, uncomplicated; Z79.82 Long term (current) use of aspirin; Z79.899 Other long term (current) drug therapy; Y90.6 Blood alcohol level of 120-199 mg/100 ml
CPT/HCPCS: 36415; 80053; 85025; 99284; G0480

== ENCOUNTER 2019-12-09 01:19 | Emergency (ER) | payer OTHER ==
[~2019-12-09] VITALS: Ht 190.5 cm; Wt 136.4 kg
[2019-12-09] MEDS ORDERED: FUROSEMIDE 40 MG/4 ML VIAL IVP ONE (01:45)
[2019-12-09] MEDS ORDERED: RIVAROXABAN 15 MG TABLET PO ONE (01:45)
[2019-12-09] MEDS ORDERED: METOPROLOL TARTRATE 5 MG/5 ML VIAL IVP ONE (02:00)
[2019-12-09] MEDS ORDERED: CARVEDILOL 3.125 MG TABLET PO ONE (02:00)
[2019-12-09 02:06] LABS: BASOPHILS % (AUTO) 1.1 % (0.0-2.0); HEMATOCRIT 36.9 % (41-53); HEMOGLOBIN 12.3 g/dL (13.5-17.5); LYMPHOCYTES # (AUTO) 1.9 K/uL (1.0-4.8); LYMPHOCYTES % (AUTO) 39.7 % (22.0-44.0); MEAN CORPUSCULAR HGB CONC 33.4 G/dL (31.0-37.0); MEAN CORPUSCULAR VOLUME 93 fL (80-100); MONOCYTES # (AUTO) 0.5 K/uL (0.1-1.0); MONOCYTES % (AUTO) 10.3 % (2.0-9.0); NEUTROPHILS # (AUTO) 2.1 K/uL (1.8-7.7); NEUTROPHILS % (AUTO) 42.9 % (40.0-70.0); PLATELET COUNT (AUTO) 190 K/uL (150-450); RED BLOOD CELL COUNT(AUTO) 3.97 MIL/uL (4.50-5.90); RED CELL DISTRIBUTION WIDTH 15.4 % (11.5-14.5)
[2019-12-09 02:17] LABS: ANION GAP 9 mmol/L (8-16); CALCIUM, TOTAL 8.2 mg/dL (8.8-10.5); CARBON DIOXIDE 28 mmol/L (22-29); CHLORIDE 103 mmol/L (98-107); CREATININE 1.05 mg/dL (0.60-1.30); GLOMERULAR FILTR. RATE CALC > 60 mL/min (>60); GLUCOSE,RANDOM 113 mg/dL (70-110); POTASSIUM 3.8 mmol/L (3.5-5.1); SODIUM SERUM 140 mmol/L (136-145); UREA NITROGEN, BLOOD 19 mg/dL (7-18)
[2019-12-09 02:20] LABS: PROTHROMBIN TIME 10.7 SEC (9.4-11.6)
[2019-12-09 02:26] LABS: B-TYPE NATRIURETIC PEPTIDE 379 pg/mL (0-100); LACTIC ACID 1.8 mmol/L (0.4-2.0)
[2019-12-09 02:40] LABS: APPEARANCE,URINE CLEAR (CLEAR); BILIRUBIN,URINE NEGATIVE (NEGATIVE); GLUCOSE, URINE (UA) NEGATIVE (NEGATIVE); KETONES,URINE NEGATIVE (NEGATIVE); LEUKOCYTE ESTERASE ,URINE NEGATIVE (NEGATIVE); NITRATE,URINE NEGATIVE (NEGATIVE); OCCULT BLOOD,URINE NEGATIVE (NEGATIVE); PH,URINE 6.5 (5.0-8.0); PROTEIN,URINE NEGATIVE (NEGATIVE); UROBILINOGEN,URINE 0.2 mg/dL (<=1.0)
[2019-12-09 02:42] LABS: ALANINE AMINOTRANSFERASE 30 U/L (12-78); ALBUMIN 3.5 g/dL (3.4-5.0); ALKALINE PHOSPHATASE 90 U/L (46-116); ASPARTATE AMINOTRANSFERASE 23 U/L (15-37); BILIRUBIN,TOTAL 0.6 mg/dL (0.1-1.0); CREATINE KINASE, TOTAL ONLY 120 U/L (39-308); LIPASE 136 U/L (73-393); TOTAL PROTEIN, SERUM 6.3 g/dL (6.4-8.2)
[2019-12-09 02:43] LABS: AMPHET/METH SCREEN,URINE NEGATIVE (NEGATIVE); BARBITURATE SCREEN, URINE NEGATIVE (NEGATIVE); BENZODIAZEPINES SCREEN,URINE NEGATIVE (NEGATIVE); CANNABINOID SCREEN,URINE POSITIVE (NEGATIVE); COCAINE SCREEN,URINE NEGATIVE (NEGATIVE); METHADONE SCREEN, URINE NEGATIVE (NEGATIVE); OPIATE SCREEN,URINE NEGATIVE (NEGATIVE); PHENCYCLIDINE SCREEN,URINE NEGATIVE (NEGATIVE)
[2019-12-09] MEDS ORDERED: ACETAMINOPHEN 500 MG TABLET PO ONE (03:30)
[2019-12-09 06:33] VITALS: BP 126/67
== END 2019-12-09 06:54 | disposition home or self-care (01) ==
LOC: EMS 01:19
DX: I48.91 Unspecified atrial fibrillation (principal); I11.0 Hypertensive heart disease with heart failure; I50.9 Heart failure, unspecified; J44.9 Chronic obstructive pulmonary disease, unspecified; M79.89 Other specified soft tissue disorders; F31.9 Bipolar disorder, unspecified; E78.00 Pure hypercholesterolemia, unspecified; G89.29 Other chronic pain; F12.90 Cannabis use, unspecified, uncomplicated; Z91.14 Patient's other noncompliance with medication regimen; Z95.0 Presence of cardiac pacemaker; Z79.899 Other long term (current) drug therapy; Z79.82 Long term (current) use of aspirin
CPT/HCPCS: 36415; 71045; 80053; 80307; 81003; 82550; 83605; 83690; 83880; 84484; 85025; 85610; 85730; 93005; 96374; 96375; 99285; G0480; J1940; J3490